=== PATIENT | female | born 1935 | race Caucasian/White ===

== ENCOUNTER 2017-01-01 12:04 | Emergency (ER) | payer MEDICARE, OTHER, MEDICAID ==
[2017-01-01] MEDS ORDERED: Sodium Chloride 0.9% 10 ML Syringe FLUSH PRN (12:48)
--- NOTE | 2017-01-01 12:55 | EDM.PDOC ---
ED HPI GENERAL MEDICAL PROBLEM - General Chief Complaint: Genitourinary Problem Stated Complaint: NOT URINATING Time Seen by Provider: 01/01/17 12:26 Source of Information: Reports: Patient, Family History Limitations: Reports: Altered Mental Status (Dementia) - History of Present Illness INITIAL COMMENTS - FREE TEXT/NARRATIVE: Patient is a 81-year-old female with history of dementia that resides at the [facility] presents the ED with daughter with concerns of increased confusion. Daughter states patient over the past week has been experiencing intermittent low-grade fever. She is a little less steady with being on her feet but continues to ambulate with a walker, she is refusing to take medications, temper has increased, has been refusing to eat eat and drink, and she's had decrease in urine output. She's also complained of intermittent pain to her lower back that is new. Daughter states they have been modifying her antipsychotic medications this past week. Unclear which medication it is at this time. Patient has not had any recent falls. Past history includes: Glaucoma, hypercholesteremia, hypertension, chronic constipation, GERD, renal disease, gout, Alzheimer's disease, encephalopathy, schizophrenia, delirium, type 2 diabetes, hypothyroid Current medications include Tylenol, levothyroxine, metoprolol, olanzapine, metformin. See list for additional lower back Pain Score (Numeric/FACES): 5 - Related Data Allergies Allergy/AdvReac Type Severity Reaction Status Date / Time atorvastatin Allergy Other Verified 01/01/17 12:25 codeine Allergy Other Verified 01/01/17 12:25 losartan Allergy Other Verified 01/01/17 12:25 morphine Allergy Other Verified 01/01/17 12:25 Penicillins Allergy Other Verified 01/01/17 12:25 Home Meds: Home Meds Acetaminophen [Tylenol] 325 mg PO Q4H PRN 01/01/17 [History] Betamethasone/Clotrimazole [Lotrisone] 1 applic TOP BID PRN 01/01/17 [History] Bisacodyl [Dulcolax] 10 mg RECTAL DAILY PRN 01/01/17 [History] Brimonidine Tartrate [Alphagan P] 1 drop EYELF BID 01/01/17 [History] Calcium Carbonate [Tums] 200 mg PO ASDIRECTED PRN 01/01/17 [History] Colesevelam HCl [Welchol] 625 mg PO BID 01/01/17 [History] Compression Socks, Medium [Futuro Restoring] 1 applic TOP ASDIRECTED 01/01/17 [ History] Dorzolamide [Trusopt 2% Ophth Soln] 10 ml EYELF BID 01/01/17 [History] Edetate Disodium/PEG [Eyescrub Cleansing Pads] 1 each TP DAILY 01/01/17 [History ] Glycerin/Propylene Glycol [Artificial Tears Drops] 1 drop OP QID 01/01/17 [ History] Latanoprost [Xalatan] 1 drop EYELF BEDTIME 01/01/17 [History] Levothyroxine 137 mcg PO ACBREAKFAST 01/01/17 [History] Metoprolol Tartrate 75 mg PO BID 01/01/17 [History] OLANZapine [Olanzapine] 7.5 mg PO DAILY 01/01/17 [History] Polyethylene Glycol 3350 [MiraLAX] 17 gm PO DAILY 01/01/17 [History] Sennosides [Senna] 8.6 mg PO DAILY PRN 01/01/17 [History] Timolol Maleate [Timoptic 0.25% Ophth Soln] 5 ml EYELF BID 01/01/17 [History] guaiFENesin/Dextromethorphan [Tussin DM Cough & Chest] 5 ml PO Q4H PRN 01/01/17 [History] metFORMIN [Glucophage XR] 500 mg PO BIDMEALS 01/01/17 [History] Past Medical History HEENT History: Reports: Glaucoma, Other (See Below) Other HEENT History: dry eyes syndrome Cardiovascular History: Reports: High Cholesterol, Hypertension Gastrointestinal History: Reports: Chronic Constipation, GERD Genitourinary History: Reports: Renal Disease, Other (See Below) Other Genitourinary History: hx hyperglycemic--hyperosmolar coma ([facility]) Musculoskeletal History: Reports: Gout Other Musculoskeletal History: uses walker Neurological History: Reports: Alzheimers Disease, Other (See Below) Other Neuro History: encephalopathy, AMS Psychiatric History: Reports: Alzheimers Disease, Schizophrenia, Other (See Below) Other Psychiatric History: delirium Endocrine/Metabolic History: Reports: Diabetes, Type II, Hypothyroidism, Obesity /BMI 30+ - Past Surgical History Other Endocrine Surgeries/Procedures: thyroid surgery Social & Family History - Family History Family Medical History: Noncontributory - Tobacco Use Smoking Status *Q: Never Smoker Second Hand Smoke Exposure: No - Caffeine Use Caffeine Use: Reports: Coffee - Recreational Drug Use Recreational Drug Use: No ED ROS GENERAL - Review of Systems Review Of Systems: See Below Constitutional: Reports: Fever (low grade 99.5 for one wk. ), Malaise, Weakness , Fatigue, Decreased Appetite. Denies: Chills HEENT: Reports: No Symptoms Respiratory: Reports: No Symptoms Cardiovascular: Reports: No Symptoms GI/Abdominal: Reports: No Symptoms : Reports: No Symptoms Musculoskeletal: Reports: Back Pain (Low back) Skin: Reports: No Symptoms Neurological: Reports: Confusion (History of dementia, recently increased), Difficulty Walking (Able to ambulate with walker with no assistance. Patient appears to be more unsteady on her feet.). Denies: Headache Psychiatric: Reports: Confusion - Physical Exam Exam: See Below Exam Limited By: Altered Mental Status (Dementia) General Appearance: Alert, WD/WN, No Apparent Distress, Other (Falls asleep easily) Eye Exam: Bilateral Eye: EOMI, Nystagmus (None found), PERRL Ears: Hearing Grossly Normal Nose: Normal Inspection Throat/Mouth: Normal Voice, No Airway Compromise, Other (Dry oromucosa, no uvula deviation, no tongue deviation) Head Exam: Atraumatic, Normocephalic Neck: Normal Inspection, Supple, Non-Tender. No: Lymphadenopathy (L), Lymphadenopathy (R) Respiratory/Chest: No Respiratory Distress, Lungs Clear, Normal Breath Sounds, No Accessory Muscle Use, Chest Non-Tender Cardiovascular: Normal Peripheral Pulses, No JVD, Bradycardia, Systolic Murmur ( Faint) GI/Abdominal: Normal Bowel Sounds, Soft, Non-Tender, No Organomegaly, No Distention Neuro Exam (Abbreviated): Alert, Oriented (To person and family), CN II-XII Intact, No Motor/Sensory Deficits, Confused, Other (No weakness discrepancy 2 upper and lower extremities. No facial droop, slurred speech, pronator drift. Cerebellar function intact including: Finger-nose and rapid alternating movements. While laying in bed patient list to the right. This is normal for the patient. ) Back Exam: Normal Inspection, Full Range of Motion. No: CVA Tenderness (L), CVA Tenderness (R), Paraspinal Tenderness, Vertebral Tenderness Extremities: Normal Inspection, Non-Tender, No Pedal Edema, Normal Capillary Refill Psychiatric: Normal Affect, Normal Mood Skin Exam: Warm, Dry, Intact, Normal Color, No Rash Course - Vital Signs Last Recorded V/S: Last Vital Signs Temp 97.1 F 01/01/17 12:10 Pulse 58 L 01/01/17 16:16 Resp 20 01/01/17 16:16 BP 170/86 H 01/01/17 16:16 Pulse Ox 99 01/01/17 16:16 - Orders/Labs/Meds Orders: Active Orders 24 hr Category Date Time Status EKG Documentation Completion [RC] STAT Care 01/01/17 12:47 Active Insert Davis Catheter [Insert Urinary Catheter] [OM.PC] Care 01/01/17 14:35 Ordered Q24H Peripheral IV Care [RC] . DIRECTED Care 01/01/17 12:48 Active Urinary Catheter Assessment [RC] ASDIRECTED Care 01/01/17 14:35 Active Chest 2V [CR] Stat Exams 01/01/17 12:47 Taken CULTURE BLOOD [BC] Stat Lab 01/01/17 13:25 Received CULTURE BLOOD [BC] Stat Lab 01/01/17 13:35 Received Blood Culture x2 Reflex Set [OM.PC] Stat Oth 01/01/17 12:55 Ordered Peripheral IV Insertion Adult [OM.PC] Stat Oth 01/01/17 12:48 Ordered Labs: Laboratory Tests 01/01/17 01/01/17 01/01/17 Range/Units 13:00 13:00 13:00 WBC 8.91 (3.98-10.04) K/mm3 RBC 4.13 (3.98-5.22) M/mm3 Hgb 12.7 (11.2-15.7) gm/L Hct 37.9 (34.1-44.9) % MCV 91.8 (79.4-94.8) fl MCH 30.8 (25.6-32.2) pg MCHC 33.5 (32.2-35.5) g/dl RDW Std Deviation 45.4 (36.4-46.3) fL Plt Count 190 (182-369) K/mm3 MPV 10.9 (9.4-12.3) fl Neut % (Auto) 50.1 (34.0-71.1) % Lymph % (Auto) 40.6 (19.3-51.7) % [place] % (Auto) 8.3 (4.7-12.5) % Eos % (Auto) 0.7 (0.7-5.8) Baso % (Auto) 0.1 (0.1-1.2) % Neut # (Auto) 4.46 (1.56-6.13) K/mm3 Lymph # (Auto) 3.62 (1.18-3.74) K/mm3 [place] # (Auto) 0.74 H (0.24-0.36) K/mm3 Eos # (Auto) 0.06 (0.04-0.36) K/mm3 Baso # (Auto) 0.01 (0.01-0.08) K/mm3 Sodium 142 (136-145) mEq/L Potassium 4.3 (3.5-5.1) mEq/L Chloride 107 (98-107) mEq/L Carbon Dioxide 27 (21-32) mEq/L Anion Gap 12.3 (5-15) BUN 29 H (7-18) mg/dL Creatinine 1.6 H (0.55-1.02) mg/dL Est Cr Clr Drug Dosing 24.62 mL/min Estimated GFR (MDRD) 31 (>60) mL/min BUN/Creatinine Ratio 18.1 H (14-18) Glucose 91 (83-115) mg/dL Calcium 9.9 (8.5-10.1) mg/dL Total Bilirubin 0.6 (0.2-1.0) mg/dL AST 23 (15-37) U/L ALT 20 (14-59) U/L Alkaline Phosphatase 35 L (46-116) U/L Troponin I < 0.017 (0.00-0.056) ng/mL C-Reactive Protein < 0.2 (<1.0) mg/dL Total Protein 7.0 (6.4-8.2) g/dl Albumin 3.6 (3.4-5.0) g/dl Globulin 3.4 gm/dL Albumin/Globulin Ratio 1.1 (1-2) TSH 3rd Generation 5.201 H (0.358-3.74) uIU/mL Urine Color (Yellow) Urine Appearance (Clear) Urine pH (5.0-8.0) Ur Specific [place] (1.005-1.030) Urine Protein (Negative) Urine Glucose (UA) (Negative) Urine Ketones (Negative) Urine Occult Blood (Negative) Urine Nitrite (Negative) Urine Bilirubin (Negative) Urine Urobilinogen (0.2-1.0) Ur Leukocyte Esterase (Negative) Urine RBC (0-5) /hpf Urine WBC (0-5) /hpf Ur Epithelial Cells (0-5) /hpf Urine Bacteria (FEW) /hpf Urine Mucus (FEW) /hpf 01/01/17 Range/Units 14:38 WBC (3.98-10.04) K/mm3 RBC (3.98-5.22) M/mm3 Hgb (11.2-15.7) gm/L Hct (34.1-44.9) % MCV (79.4-94.8) fl MCH (25.6-32.2) pg MCHC (32.2-35.5) g/dl RDW Std Deviation (36.4-46.3) fL Plt Count (182-369) K/mm3 MPV (9.4-12.3) fl Neut % (Auto) (34.0-71.1) % Lymph % (Auto) (19.3-51.7) % [place] % (Auto) (4.7-12.5) % Eos % (Auto) (0.7-5.8) Baso % (Auto) (0.1-1.2) % Neut # (Auto) (1.56-6.13) K/mm3 Lymph # (Auto) (1.18-3.74) K/mm3 [place] # (Auto) (0.24-0.36) K/mm3 Eos # (Auto) (0.04-0.36) K/mm3 Baso # (Auto) (0.01-0.08) K/mm3 Sodium (136-145) mEq/L Potassium (3.5-5.1) mEq/L Chloride (98-107) mEq/L Carbon Dioxide (21-32) mEq/L Anion Gap (5-15) BUN (7-18) mg/dL Creatinine (0.55-1.02) mg/dL Est Cr Clr Drug Dosing mL/min Estimated GFR (MDRD) (>60) mL/min BUN/Creatinine Ratio (14-18) Glucose (83-115) mg/dL Calcium (8.5-10.1) mg/dL Total Bilirubin (0.2-1.0) mg/dL AST (15-37) U/L ALT (14-59) U/L Alkaline Phosphatase (46-116) U/L Troponin I (0.00-0.056) ng/mL C-Reactive Protein (<1.0) mg/dL Total Protein (6.4-8.2) g/dl Albumin (3.4-5.0) g/dl Globulin gm/dL Albumin/Globulin Ratio (1-2) TSH 3rd Generation (0.358-3.74) uIU/mL Urine Color Yellow (Yellow) Urine Appearance Slt cloudy H (Clear) Urine pH 5.5 (5.0-8.0) Ur Specific [place] > or = 1.030 (1.005-1.030) Urine Protein Trace H (Negative) Urine Glucose (UA) Negative (Negative) Urine Ketones Negative (Negative) Urine Occult Blood Negative (Negative) Urine Nitrite Negative (Negative) Urine Bilirubin Negative (Negative) Urine Urobilinogen 0.2 (0.2-1.0) Ur Leukocyte Esterase Negative (Negative) Urine RBC 0-5 (0-5) /hpf Urine WBC 0-5 (0-5) /hpf Ur Epithelial Cells 0-5 (0-5) /hpf Urine Bacteria Few (FEW) /hpf Urine Mucus Not seen (FEW) /hpf Meds: Medications Discontinued Medications Generic Name Dose Route Start Last Admin Trade Name Freq PRN Reason Stop Dose Admin Sodium Chloride 1,000 mls @ 75 mls/hr 01/01/17 13:00 01/01/17 12:59 Normal Saline IV 75 mls/hr ASDIRECTED VICKIE Administration Sodium Chloride 500 mls @ 250 mls/hr 01/01/17 13:56 Normal Saline IV 01/01/17 15:55 .BOLUS ONE Sodium Chloride 10 ml 01/01/17 12:48 01/01/17 12:59 Saline Flush FLUSH 10 ml ASDIRECTED PRN Administration Keep Vein Open - Re-Assessments/Exams Free Text/Narrative Re-Assessment/Exam: Will order a peripheral IV with normal saline 75 mils per hour. Initial labs and studies include CBC, chem 14, CRP, TSH, blood cultures x2, chest x-ray two- view, UA, bladder scan, and EKG. 01/01/17 13:58 Portable chest x-ray poor quality with marked deviation to the right increasing the perihilar region on the right side. Does not reveal any acute abnormalities at this this time. Visualized portions of the lungs are clear. Final interpretation pending. Reviewed with Dr. Avery. 01/01/17 14:01 Labs reviewed: Sodium 142, potassium 4.3, creatinine is elevated at 1.6, CRP less than 0.2, TSH is mildly elevated 5.201, CBC essentially normal. UA is pending. Troponin pending. 01/01/17 15:33 UA was negative for infection processes. Troponin was negative. Patient was bradycardic upon arrival. She is on metoprolol tartrate 25 mg twice a day. In addition her TSH levels were mildly elevated at 5.201. Currently she is on levothyroxine 137 g every day. Will go ahead and increase her levothyroxine 150 g every day and decrease metoprolol dosing from 75-50 mg by mouth twice a day. Blood pressures have been normotensive with admission to the ED. Will discharge patient with instructions as documented. Departure - Departure Time of Disposition: 15:50 Disposition: Home, Self-Care 01 Condition: Good Clinical Impression: Bradycardia, Confusion Hypothyroidism Qualifiers: Hypothyroidism type: unspecified Qualified Code(s): E03.9 - Hypothyroidism, unspecified Alzheimer disease Qualifiers: Alzheimer's disease onset: late-onset Dementia behavioral disturbance: with behavioral disturbance Qualified Code(s): G30.1 - Alzheimer's disease with late onset - Discharge Information Instructions: Hypothyroidism, Bradycardia Referrals: Faustino Cornelius MD [Primary Care Provider] - Forms: ED Department Discharge Additional Instructions: Patient was bradycardic upon arrival. She is on metoprolol tartrate 75 mg twice a day. In addition her TSH levels were mildly elevated at 5.201. Currently she is on levothyroxine 137 g every day. Will go ahead and increase her levothyroxine to 150 g every day and decrease metoprolol dosing from 75-50 mg by mouth twice a day. Blood pressures have been normotensive with admission to the ED. Metoprolol although a good antihypertensive medication and also treats patient with tachy rhythms side effects of this medication have been documented to cause fatigue and constipation. In addition levothyroxine dose is subtherapeutic at this time. Hypothyroidis can cause fatigue, constipation, as well increased confusion. Thus levothyroxine dosage was increased. Please see PCP in one week for reevaluation treatment. Return to ED as needed for any new or worsening symptoms. - My Orders Last 24 Hours: My Active Orders 01/01/17 12:47 EKG Documentation Completion [RC] STAT Chest 2V [CR] Stat 01/01/17 12:48 Peripheral IV Care [RC] . DIRECTED Peripheral IV Insertion Adult [OM.PC] Stat 01/01/17 12:55 Blood Culture x2 Reflex Set [OM.PC] Stat 01/01/17 13:25 CULTURE BLOOD [BC] Stat 01/01/17 13:35 CULTURE BLOOD [BC] Stat 01/01/17 14:35 Insert Davis Catheter [Insert Urinary Catheter] [OM.PC] Q24H Urinary Catheter Assessment [RC] ASDIRECTED - Assessment/Plan Last 24 Hours: My Active Orders 01/01/17 12:47 EKG Documentation Completion [RC] STAT Chest 2V [CR] Stat 01/01/17 12:48 Peripheral IV Care [RC] . DIRECTED Peripheral IV Insertion Adult [OM.PC] Stat 01/01/17 12:55 Blood Culture x2 Reflex Set [OM.PC] Stat 01/01/17 13:25 CULTURE BLOOD [BC] Stat 01/01/17 13:35 CULTURE BLOOD [BC] Stat 01/01/17 14:35 Insert Davis Catheter [Insert Urinary Catheter] [OM.PC] Q24H Urinary Catheter Assessment [RC] ASDIRECTED
[2017-01-01] MEDS ORDERED: Sodium Chloride 0.9% 1,000 ML IV SCH (13:00)
[2017-01-01] MEDS ORDERED: Sodium Chloride 0.9% 500 ML IV ONE (13:56)
[2017-01-01 16:45] VITALS: BP 170/86
--- NOTE | 2017-01-02 08:14 | CR ---
Chest: Two views of the chest were obtained. Comparison: No previous study. Right and left perihilar markings are slightly increased. Difficult to exclude combination of atelectasis and bronchitis. Lungs otherwise are clear. Heart size is normal. Tortuous thoracic aorta is seen. Surgical clips are seen along the right upper mediastinum. Impression: 1. Possible atelectasis and perihilar bronchitis. 2. Surgical clips along the right side of the upper mediastinum. 3. Other incidental findings. Diagnostic code #3
== END 2017-01-01 16:16 | disposition home or self-care (01) ==
LOC: JD.ED 12:04
DX: R00.1 Bradycardia, unspecified (principal); G30.1 Alzheimer's disease with late onset; F02.80 Dementia in other diseases classified elsewhere, unspecified severity, without behavioral disturbance, psychotic disturbance, mood disturbance, and anxiety; E78.00 Pure hypercholesterolemia, unspecified; E66.9 Obesity, unspecified; I10 Essential (primary) hypertension; K21.9 Gastro-esophageal reflux disease without esophagitis; E11.9 Type 2 diabetes mellitus without complications; E03.9 Hypothyroidism, unspecified; Z88.5 Allergy status to narcotic agent; Z88.0 Allergy status to penicillin; Z79.899 Other long term (current) drug therapy; Z79.84 Long term (current) use of oral hypoglycemic drugs; Z68.35 Body mass index [BMI] 35.0-35.9, adult
CPT/HCPCS: 36415; 51798; 71020; 80053; 81001; 84443; 84484; 85025; 86140; 87040; 93005; 96360; 96361; 99284; J7040; J7050; P9612

== ENCOUNTER 2017-01-08 17:02 | Emergency (ER) | payer MEDICARE, OTHER, MEDICAID ==
[2017-01-08 17:10] VITALS: BP 144/79
[2017-01-08] MEDS ORDERED: Lidocaine 1% 10 ML MDV INJECT ONE (17:24)
--- NOTE | 2017-01-08 17:29 | EDM.PDOC ---
ED HPI GENERAL MEDICAL PROBLEM - General Chief Complaint: Laceration Stated Complaint: [facility] Time Seen by Provider: 01/08/17 17:24 Source of Information: Reports: Patient, EMS History Limitations: Reports: No Limitations - History of Present Illness INITIAL COMMENTS - FREE TEXT/NARRATIVE: 81-year-old female presents from the [facility] by ambulance. She had unwitnessed fall and was appreciated to have a laceration to her occipital scalp. Patient has no recollection of why when or where this occurred. She usually walks with aid of a walker. She denies any other injuries. Unclear when her last tetanus toxoid was. Onset: Today Onset Date: 01/08/17 Onset Time: 16:00 Duration: Minutes: Location: Reports: Head (Has a 2 cm laceration occipital scalp.) Quality: Reports: Other (Patient is asymptomatic. Patient has severe underlying organic brain disease and really had no recollection of how or where she fell or how she may have gotten hurt. She is not distressed by it at all.) Severity: Moderate Improves with: Reports: None Worsens with: Reports: None Context: Reports: Other (Unwitnessed fall in long-term. 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: Other (see below) (None.) - Related Data Allergies Allergy/AdvReac Type Severity Reaction Status Date / Time atorvastatin Allergy Other Verified 01/08/17 17:10 codeine Allergy Other Verified 01/08/17 17:10 losartan Allergy Other Verified 01/08/17 17:10 morphine Allergy Other Verified 01/08/17 17:10 Penicillins Allergy Other Verified 01/08/17 17:10 Home Meds: Home Meds Acetaminophen [Tylenol] 325 mg PO Q4H PRN 01/01/17 [History] Betamethasone/Clotrimazole [Lotrisone] 1 applic TOP BID PRN 01/01/17 [History] Bisacodyl [Dulcolax] 10 mg RECTAL DAILY PRN 01/01/17 [History] Brimonidine Tartrate [Alphagan P] 1 drop EYELF BID 01/01/17 [History] Calcium Carbonate [Tums] 200 mg PO ASDIRECTED PRN 01/01/17 [History] Colesevelam HCl [Welchol] 3 tab PO BID 01/01/17 [History] Compression Socks, Medium [Futuro Restoring] 1 applic TOP ASDIRECTED 01/01/17 [ History] Dorzolamide [Trusopt 2% Ophth Soln] 10 ml EYELF BID 01/01/17 [History] Edetate Disodium/PEG [Eyescrub Cleansing Pads] 1 each TP DAILY 01/01/17 [History ] Glycerin/Propylene Glycol [Artificial Tears Drops] 1 drop OP QID 01/01/17 [ History] Levothyroxine 137 mcg PO ACBREAKFAST 01/01/17 [History] OLANZapine [Olanzapine] 7.5 mg PO DAILY 01/01/17 [History] Polyethylene Glycol 3350 [MiraLAX] 17 gm PO DAILY 01/01/17 [History] Sennosides [Senna] 8.6 mg PO DAILY PRN 01/01/17 [History] Timolol Maleate [Timoptic 0.25% Ophth Soln] 5 ml EYELF BID 01/01/17 [History] guaiFENesin/Dextromethorphan [Tussin DM Cough & Chest] 5 ml PO Q4H PRN 01/01/17 [History] Past Medical History HEENT History: Reports: Glaucoma, Other (See Below) Other HEENT History: dry eyes syndrome Cardiovascular History: Reports: High Cholesterol, Hypertension Gastrointestinal History: Reports: Chronic Constipation, GERD Genitourinary History: Reports: Renal Disease, Other (See Below) Other Genitourinary History: hx hyperglycemic--hyperosmolar coma ([facility]) Musculoskeletal History: Reports: Gout Other Musculoskeletal History: uses walker Neurological History: Reports: Alzheimers Disease, Other (See Below) Other Neuro History: encephalopathy, AMS Psychiatric History: Reports: Alzheimers Disease, Schizophrenia, Other (See Below) Other Psychiatric History: delirium Endocrine/Metabolic History: Reports: Diabetes, Type II, Hypothyroidism, Obesity /BMI 30+ - Past Surgical History Other Endocrine Surgeries/Procedures: thyroid surgery Social & Family History - Family History Family Medical History: Noncontributory - Tobacco Use Smoking Status *Q: Unknown Ever Smoked Second Hand Smoke Exposure: No - Caffeine Use Caffeine Use: Reports: Coffee - Recreational Drug Use Recreational Drug Use: No - Living Situation & Occupation Living situation: Reports: Extended Care Facility (Currently living in the [facility]) Occupation: Retired ED ROS GENERAL - Review of Systems Review Of Systems: Unable To Obtain (Unable to obtain from the patient due to her underlying severe organic brain disease.) ED EXAM, SKIN/RASH Exam: See Below Exam Limited By: Altered Mental Status (Severe dementia.) General Appearance: Alert, No Apparent Distress Eye Exam: Bilateral Eye: Normal Inspection, PERRL Ears: Normal External Exam, Normal TMs Nose: Normal Inspection Throat/Mouth: Normal Inspection, Normal Oropharynx, Other. No: Normal Teeth Head: Other (No injuries to her tongue is a 2 cm stellate laceration to the superior aspect of the occipital scalp more towards the left than the right.) Neck: Normal Inspection, Supple, Non-Tender, Full Range of Motion. No: Carotid Bruit, Lymphadenopathy (L), Lymphadenopathy (R), Thyromegaly Respiratory/Chest: No Respiratory Distress, Lungs Clear, Normal Breath Sounds, Chest Non-Tender Cardiovascular: Regular Rate, Rhythm, No Edema, No Gallop, No Murmur, No Rub. No: Normal Peripheral Pulses Peripheral Pulses: 2+: Posterior Tibial (L), Posterior Tibial (R), Dorsalis Pedis (L), Dorsalis Pedis (R) GI/Abdominal: Normal Bowel Sounds, Soft, Non-Tender, No Organomegaly Back Exam: Normal Inspection, Full Range of Motion, Other (No bruises contusions or abrasions identified. No vertebral tenderness identified.). No: CVA Tenderness (L), CVA Tenderness (R) Extremities: Normal Inspection, Normal Range of Motion, Non-Tender, No Pedal Edema, Other (No evidence of injuries to the wrists elbows or shoulders. No injuries to the hips or knees identified.) Neurological: CN II-XII Intact, No Motor/Sensory Deficits. No: Oriented, Normal Cognition, Normal Gait Psychiatric: Normal Affect, Normal Mood Skin: Warm, Dry, Intact, Normal Color, No Rash ED SKIN PROCEDURES - Laceration/Wound Repair Upper Posterior Occipital Head Lac/Wound length In cm: 2.0 Appearance: Subcutaneous, Stellate Distal NVT: Neuro & Vascular Intact Anesthetic Type: Local Local Anesthesia - Lidocaine (Xylocaine): 1% Plain Local Anesthetic Volume: 2cc Skin Prep: Saline Closed with: Sutures Suture Size: 4-0 # of Sutures: 4 Suture Type: Prolene, Interrupted, Simple EKG INTERPRETATION EKG Date: 01/08/17 Time: 18:45 Rhythm: NSR Rate (Beats/Min): 85 [place]: Normal P-Wave: Present QRS: Other (Initial poor R-wave progression . Occasional multifocal PVCs appreciated) ST-T: Normal (no signs of ischemia) QT: Prolonged Comparison: No Change (Minimally prolonged) Course - Vital Signs Last Recorded V/S: Last Vital Signs Temp 36.3 C 01/08/17 17:03 Pulse 86 01/08/17 17:03 Resp 16 01/08/17 17:03 BP 144/79 H 01/08/17 17:03 Pulse Ox 95 01/08/17 17:03 - Orders/Labs/Meds Orders: Active Orders 24 hr Category Date Time Status EKG Documentation Completion [RC] STAT Care 01/08/17 17:31 Active Labs: Laboratory Tests 01/08/17 01/08/17 Range/Units 18:07 18:07 WBC 9.97 (3.98-10.04) K/mm3 RBC 4.08 (3.98-5.22) M/mm3 Hgb 12.7 (11.2-15.7) gm/L Hct 37.5 (34.1-44.9) % MCV 91.9 (79.4-94.8) fl MCH 31.1 (25.6-32.2) pg MCHC 33.9 (32.2-35.5) g/dl RDW Std Deviation 46.5 H (36.4-46.3) fL Plt Count 204 (182-369) K/mm3 MPV 10.8 (9.4-12.3) fl Neutrophils % (Manual) 75 H (40-60) % Band Neutrophils % 2 (0-10) % Lymphocytes % (Manual) 20 (20-40) % Atypical Lymphs % 0 % Monocytes % (Manual) 2 (2-10) % Eosinophils % (Manual) 1 (0.7-5.8) % Basophils % (Manual) 0 L (0.1-1.2) Platelet Estimate Adequate Anisocytosis 1+ slight Ovalocytes 1+ slight RBC Morph Comment Not Reportable Sodium 141 (136-145) mEq/L Potassium 4.1 (3.5-5.1) mEq/L Chloride 107 (98-107) mEq/L Carbon Dioxide 26 (21-32) mEq/L Anion Gap 12.1 (5-15) BUN 23 H (7-18) mg/dL Creatinine 1.4 H (0.55-1.02) mg/dL Est Cr Clr Drug Dosing 29.32 mL/min Estimated GFR (MDRD) 36 (>60) mL/min BUN/Creatinine Ratio 16.4 (14-18) Glucose 96 (83-115) mg/dL Calcium 9.6 (8.5-10.1) mg/dL Total Bilirubin 0.7 (0.2-1.0) mg/dL AST 19 (15-37) U/L ALT 21 (14-59) U/L Alkaline Phosphatase 37 L (46-116) U/L CK-MB (CK-2) 0.8 (0-3.6) ng/ml Troponin I < 0.017 (0.00-0.056) ng/mL Total Protein 6.8 (6.4-8.2) g/dl Albumin 3.6 (3.4-5.0) g/dl Globulin 3.2 gm/dL Albumin/Globulin Ratio 1.1 (1-2) Meds: Medications Discontinued Medications Generic Name Dose Route Start Last Admin Trade Name Freq PRN Reason Stop Dose Admin Lidocaine HCl 10 ml 01/08/17 17:24 01/08/17 17:44 Xylocaine 1% INJECT 01/08/17 17:25 10 ml ONETIME ONE Administration - Radiology Interpretation Free Text/Narrative:: 81-year-old female brought to the ED per [place] [facility] after she experienced an unwitnessed fall at the [facility]. She was identified to have hit her head and suffered a laceration to the occipital scalp. She usually walks on her own volition with aid of a walker. Again the details of where and how she fell or unclear. She did not appear to be in any distress upon arrival. Patient is not does have severe organic brain disease. - Re-Assessments/Exams Free Text/Narrative Re-Assessment/Exam: 01/08/17 19:30: CT of the head reveals diminished density within the periventricular and subcortical white matter compatible with small vessel ischemic changes. No other parenchymal abnormalities were identified. There is no evidence of intracranial hemorrhage or fracture. There is slight atherosclerotic changes noted within the vertebral vessels and within the carotid siphon. Scalp hematoma appreciated within the posterior left scalp. 01/08/17 20:30: Laceration was repaired occipital scalp using 4-0 Prolene 4 sutures. Wound will be cleansed daily with soap and water at the care center. Sutures will need to be removed in 10 days' time. She was discharged home in the care of her family. Departure - Departure Time of Disposition: 20:36 Disposition: DC/[facility]fer to [facility] Condition: Fair Clinical Impression: Occipital scalp laceration Qualifiers: Encounter type: initial encounter Qualified Code(s): S01.01XA - Laceration without foreign body of scalp, initial encounter Fall as cause of accidental injury at home as place of occurrence Qualifiers: Encounter type: initial encounter Qualified Code(s): W19.XXXA - Unspecified fall, initial encounter - Discharge Information Instructions: Laceration Care, Adult Referrals: Faustino Cornelius MD [Primary Care Provider] - Forms: ED Department Discharge Additional Instructions: Evaluation the emergency room today after a fall at home that was unwitnessed. Obvious injury to the occipital scalp with a 2 cm laceration to the superior occipital scalp identified. CT of the brain was carried out and shows marked degenerative changes with small vessel ischemic changes but no signs of stroke or intracranial bleeding or mid line shift or mass effect. Lab work was done and also was all within normal limits. There was no metabolic abnormalities that would cause muscle weakness and or fall. Laceration was repaired with 4 4- 0 Prolene sutures. Treatment at home is daily cleanse the wound with soap and water showering is okay. Then apply topical anabolic such as Polysporin or bacitracin once daily. Sutures need to be removed in 10 days' time. - My Orders Last 24 Hours: My Active Orders 01/08/17 17:31 EKG Documentation Completion [RC] STAT - Assessment/Plan Last 24 Hours: My Active Orders 01/08/17 17:31 EKG Documentation Completion [RC] STAT
--- NOTE | 2017-01-08 18:19 | CT ---
Head CT Technique: Multiple axial sections through the brain were obtained. Intravenous contrast was not utilized. Comparison: No previous study. Findings: Soft tissue hematoma is seen within the posterior left side of the scalp. Ventricles along with basal cisterns and sulci over convexities are mildly prominent. Diminished density is noted within the periventricular and subcortical white matter compatible with small vessel ischemic demyelination change. No other abnormal parenchymal densities are seen. No evidence of intracranial hemorrhage. No midline shift or mass effect is seen. Slight atherosclerotic change is noted within the vertebral vessels and within the carotid siphon. Bone window settings were reviewed which shows no acute calvarial abnormality. Visualized sinuses are clear. Impression: 1. Scalp hematoma within the posterior left scalp. 2. Senescent change as described above. 3. No acute intracranial abnormality is identified. Diagnostic code #2
== END 2017-01-08 20:45 ==
LOC: JD.ED 17:02
DX: S01.01XA Laceration without foreign body of scalp, initial encounter (principal); E78.00 Pure hypercholesterolemia, unspecified; I10 Essential (primary) hypertension; K21.9 Gastro-esophageal reflux disease without esophagitis; E11.9 Type 2 diabetes mellitus without complications; E03.9 Hypothyroidism, unspecified; E66.9 Obesity, unspecified; Z88.5 Allergy status to narcotic agent; Z88.0 Allergy status to penicillin; Z79.899 Other long term (current) drug therapy; W19.XXXA Unspecified fall, initial encounter; Z68.30 Body mass index [BMI] 30.0-30.9, adult
CPT/HCPCS: 12001; 36415; 70450; 70450-26; 80053; 82553; 84484; 85025; 93005; 99284-25

== ENCOUNTER 2017-01-31 07:18 | Emergency (ER) | payer MEDICARE, OTHER, MEDICAID ==
--- NOTE | 2017-01-31 07:32 | EDM.PDOC ---
ED HPI GENERAL MEDICAL PROBLEM - General Chief Complaint: Trauma Stated Complaint: [facility] Time Seen by Provider: 01/31/17 07:20 Source of Information: Reports: Patient, EMS, Detention Records History Limitations: Reports: Altered Mental Status ( hasdementia.) - History of Present Illness INITIAL COMMENTS - FREE TEXT/NARRATIVE: 81-year-old female presents to the ED for evaluation of a fall that was unwitnessed. She was found on the floor of her room this morning. It's unclear by history whether she walks on her own volition are usually uses a walker or wheelchair. She has dementia and was not able to answer all questions. She denies much in the way of pain other than in her nose. Nose is obviously very swollen and suspect to be fractured. No active bleeding is occurring at this time. She has a slight abrasion to her right forehead above the eyebrow. She's had previous cervical spine surgery but seems to have full range of motion of her neck. 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 (see below) (None.) - Related Data Allergies Allergy/AdvReac Type Severity Reaction Status Date / Time atorvastatin Allergy Other Verified 01/31/17 07:20 codeine Allergy Other Verified 01/31/17 07:20 losartan Allergy Other Verified 01/31/17 07:20 morphine Allergy Other Verified 01/31/17 07:20 Penicillins Allergy Other Verified 01/31/17 07:20 Home Meds: Home Meds Acetaminophen [Tylenol] 325 mg PO Q4H PRN 01/01/17 [History] Calcium Carbonate [Tums] 200 mg PO ASDIRECTED PRN 01/01/17 [History] Levothyroxine 150 mcg PO ACBREAKFAST 01/01/17 [History] Sennosides [Senna] 8.6 mg PO DAILY PRN 01/01/17 [History] Timolol Maleate [Timoptic 0.25% Ophth Soln] 1 drop EYELF BID 01/01/17 [History] Bisacodyl [Dulcolax] 10 mg RECTAL ASDIRECTED PRN 01/31/17 [History] Brimonidine Tartrate [Alphagan P 0.1% Ophth Soln] 1 drop EYEBOTH BID 01/31/17 [ History] Lemmon/Min Oil/Denae/Wool Alcoh [Eucerin Creme] 1 applic EARBOTH BID PRN [History] Colesevelam [Welchol] 3 tab PO BID 01/31/17 [History] Dextran 70/Hypromellose [Artificial Tears] 1 drop EYEBOTH QID 01/31/17 [History] Dorzolamide [Trusopt 2% Ophth Soln] 1 drop EYELF BID 01/31/17 [History] Latanoprost [Xalatan 0.005% Ophth Soln] 1 drop EYELF BEDTIME 01/31/17 [History] Metoprolol Tartrate [Lopressor] 50 mg PO BID 01/31/17 [History] OLANZapine [Olanzapine] 15 mg PO BEDTIME 01/31/17 [History] guaiFENesin/Dextromethorphan [Safetussin DM] 5 ml PO Q4H PRN 01/31/17 [History] metFORMIN [Glucophage] 500 mg PO BID 01/31/17 [History] Past Medical History HEENT History: Reports: Glaucoma, Other (See Below) Other HEENT History: dry eyes syndrome Cardiovascular History: Reports: High Cholesterol, Hypertension Gastrointestinal History: Reports: Chronic Constipation, GERD Genitourinary History: Reports: Renal Disease, Other (See Below) Other Genitourinary History: hx hyperglycemic--hyperosmolar coma ([facility]) Musculoskeletal History: Reports: Gout Other Musculoskeletal History: uses walker Neurological History: Reports: Alzheimers Disease, Other (See Below) Other Neuro History: encephalopathy, AMS Psychiatric History: Reports: Alzheimers Disease, Schizophrenia, Other (See Below) Other Psychiatric History: delirium Endocrine/Metabolic History: Reports: Diabetes, Type II, Hypothyroidism, Obesity /BMI 30+ - Past Surgical History Other Endocrine Surgeries/Procedures: thyroid surgery Social & Family History - Family History Family Medical History: Noncontributory - Tobacco Use Smoking Status *Q: Unknown Ever Smoked Second Hand Smoke Exposure: No - Caffeine Use Caffeine Use: Reports: Coffee - Recreational Drug Use Recreational Drug Use: No - Living Situation & Occupation Living situation: Reports: Extended Care Facility (Currently living in the [facility]) Occupation: Retired Review of Systems - Review of Systems Review Of Systems: Unable To Obtain (Due to her dementia.) ED EXAM, GENERAL - Physical Exam Exam: See Below Exam Limited By: Altered Mental Status (Organic brain disease with a few verbal comments but not does not answer most questions.) General Appearance: No Apparent Distress (Appears somewhat tired.) Eye Exam: Bilateral Eye: Normal Inspection, PERRL Ears: Normal External Exam, Normal TMs Nose: Other (The nose is markedly swollen worse a little bit on the right side as compared to the left. There is dried blood in both nasal canals. Due to her positioning was difficult to ascertain full inspection of the right naris and it will be repeated after she gets back from CT. Wish to be certain that there is no nasal septal hematoma. Active bleeding is occurring at this time.) Throat/Mouth: Normal Inspection, Normal Lips, Normal Oropharynx, Other Head: Atraumatic, Normocephalic (Wearing dentures and there is no blood in the posterior oropharynx.), Other (Slight a superficial scratch above her right eyebrow forehead area.) Neck: Normal Inspection, Non-Tender, Full Range of Motion, Other (Well-healed midline scar over the lower cervical spine and upper thoracic spine.) Respiratory/Chest: No Respiratory Distress, Lungs Clear, Normal Breath Sounds, No Accessory Muscle Use, Decreased Breath Sounds (Does not take very good deep breath. Decreased breath sounds lower 30% of lung van.), Other Cardiovascular: Normal Peripheral Pulses (No obvious injuries to the posterior or anterior thorax ribs or sternum. Clavicles are intact.), Regular Rate, Rhythm , No Gallop, No Murmur, No Rub Peripheral Pulses: 1+: Posterior Tibial (L), Posterior Tibial (R), Dorsalis Pedis (L), Dorsalis Pedis (R) GI/Abdominal: Normal Bowel Sounds, Soft, Non-Tender, No Organomegaly Back Exam: Normal Inspection, Full Range of Motion. No: CVA Tenderness (L), CVA Tenderness (R) Extremities: Normal Inspection, Normal Range of Motion, Non-Tender, Normal Capillary Refill, Other (There is evidence of osteophytic changes in both knees but full range of motion appreciated no contusions or abrasions to the knees) Neurological: No Motor/Sensory Deficits. No: Oriented, CN II-XII Intact, Normal Cognition Psychiatric: Flat Affect Skin Exam: Warm, Dry, Intact, Normal Color, No Rash Course - Vital Signs Last Recorded V/S: Last Vital Signs Temp 36.5 C 01/31/17 07:18 Pulse 70 01/31/17 07:18 Resp 16 01/31/17 07:18 BP 127/75 01/31/17 07:18 Pulse Ox 98 01/31/17 07:18 - Orders/Labs/Meds Orders: Active Orders 24 hr Category Date Time Status Cervical Spine wo Cont [CT] Stat Exams 01/31/17 07:30 Taken Maxillofacial w/o CM [Max Facial Sinus wo Cont] [CT] Exams 01/31/17 07:27 Taken Stat - Radiology Interpretation Free Text/Narrative:: 81-year-old female presents to the ED after sustaining a fall sometime during the night and [facility]. She has obvious facial injuries particularly to her nose. No other injuries were identified on complete exam. She is in sinus rhythm. She is not appear to be in failure. Plan maxillofacial CT to be done. There are no open wounds that would demand tetanus toxoid at this time. - Re-Assessments/Exams Free Text/Narrative Re-Assessment/Exam: 01/31/17 08:33 CT of the head reveals no intracranial bleeding or mass effect. There is marked dementia changes with small vessel ischemic changes in both basal ganglia. Diminished density noted within portions of the periventricular white matter and subcortical white matter compared compatible with small vessel ischemic demyelination changes. Soft tissue swelling noted of the upper left parietal scalp. This was seen on prior study but is diminished in amount. She does have mild diffuse sinus disease slightly worsened from previous examination. CT cervical spine reveals advanced degenerative changes with no fractures identified. There are osteophytes both posterior and anteriorly with degenerative disc disease. CT of the maxillofacial bones reveals a fracture of the nasal septum and vomer. There is a deviation of the nasal septum to the right side. No other facial fractures are identified. This will be treated conservatively. Departure - Departure Time of Disposition: 08:35 Disposition: Home, Self-Care Condition: Fair Clinical Impression: Fracture of nasal bones, initial encounter for closed fracture Fall as cause of accidental injury at home as place of occurrence Qualifiers: Encounter type: initial encounter Qualified Code(s): W19.XXXA - Unspecified fall, initial encounter - Discharge Information Referrals: Faustino Cornelius MD [Primary Care Provider] - Forms: ED Department Discharge Additional Instructions: Evaluation in the emergency department today in regards to injuries sustained from a fall sometime during the night at [facility]. Injuries are mostly to her face with marked swelling of the nose. CT of the fact maxillofacial bones reveals a fracture of the nasal spine with minimal displacement and a fracture of the vomer with deviation of the nasal septum to the right side. No septal hematomas evident. No active bleeding at the time of examination. There is some mild blood in the maxillary sinuses. CT of the head reveals a soft tissue mass left parietal scalp which appears to be resolving compared to last CT. No intracranial bleeding or fractures were identified. No midline shift or mass effect. CT of the cervical spine reveals diffuse degenerative changes throughout the cervical spine but again no fractures were identified. Cervidil. Ice pack to the nose if she will allow it for 20 minutes out of every 4 hours today and tomorrow. Tylenol 650 mg every 6 hours as needed for pain relief. No surgical management is required at this time. - My Orders Last 24 Hours: My Active Orders 01/31/17 07:27 Maxillofacial w/o CM [Max Facial Sinus wo Cont] [CT] Stat 01/31/17 07:30 Cervical Spine wo Cont [CT] Stat - Assessment/Plan Last 24 Hours: My Active Orders 01/31/17 07:27 Maxillofacial w/o CM [Max Facial Sinus wo Cont] [CT] Stat 01/31/17 07:30 Cervical Spine wo Cont [CT] Stat
--- NOTE | 2017-01-31 08:27 | CT ---
Head CT Technique: Multiple axial sections through the brain were obtained. Intravenous contrast was not utilized. Comparison: Previous head CT exam of 01/08/17. Findings: Ventricles along with basal cisterns and sulci over the convexities are mildly prominent. Mild atherosclerotic change is seen within the vertebral vessels and within the carotid siphon. Minimal diminished density is noted within portions of the periventricular white matter and subcortical white matter compatible with small vessel ischemic demyelination change. No evidence of intracranial hemorrhage. No midline shift or mass effect is seen. Soft tissue swelling noted within the upper left parietal scalp. This is seen on prior study but has diminished in amount. No acute calvarial abnormality is seen. Mild mucosal thickening is noted within the ethmoid sinuses and left maxillary sinus. Impression: 1. Minimal sinus disease slightly increased from prior exam. 2. Senescent change as described above. 3. Diminished soft tissue swelling within the upper left parietal scalp from prior study. 4. Nothing acute is appreciated on noncontrast head CT study. Diagnostic code #2
--- NOTE | 2017-01-31 08:38 | CT ---
CT cervical spine Technique: Multiple axial sections were obtained from above C1 inferiorly to the top of T2. Reconstructed sagittal and coronal images were reviewed. Comparison: No previous cervical spine imaging. Findings: Mastoid sinuses that are seen appear clear. Middle ear cavities are also clear. Posterior skull base is intact. Degenerative change is noted between the dens and anterior arch of C1. Mild disc space narrowing is noted at C4-C5 and C5-C6 with posterior spurring seen at C5-C6. Anterior osteophytes are noted at C3-C4, C4-C5, C5-C6 and C6-C7. Mild scattered degenerative change is seen within the apophyseal joints. Mild right-sided neural foraminal stenosis is noted at C4-C5. Moderate to severe bilateral neural foraminal stenosis is noted at C5-C6. Bony defect is seen within the posterior lamina at C6 presumably due to previous surgery. Surgical clips are seen at the base of the right neck. Bony central canal stenosis is seen. No acute fracture is appreciated. No abnormal subluxation is seen. Slight degenerative spurring is noted within the uncovertebral joints at C4-C5 and C5-C6. Impression: 1. Degenerative change as noted above. 2. Defect within the posterior lamina of C6 on the right side most likely due to previous cervical spine surgery. Please correlate. 3. Nothing acute is identified on CT study of the cervical spine. Diagnostic code #2
[2017-01-31 09:18] VITALS: BP 105/57
--- NOTE | 2017-01-31 10:04 | CT ---
CT facial bones Technique: Multiple axial sections were obtained through the facial bones. Reconstructed sagittal and coronal images were reviewed. Comparison: No previous facial bone study. Findings: Minimal mucosal thickening is identified within the left maxillary and ethmoid sinuses. Minimal mucosal thickening is seen within the frontal sinuses. Small calcification is noted within the left and right orbits which is felt to be incidental. Mild degenerative change is seen within the temporomandibular joints. Questionable fracture within the anterior left side of the nasal bone. No additional fracture is appreciated. Impression: 1. Minimal sinus findings. Slight degenerative change. 2. Questionable minimal nasal bone fracture. Please correlate if patient is symptomatic to this area. 3. No other acute abnormality is appreciated. Diagnostic code #3
== END 2017-01-31 09:15 | disposition home or self-care (01) ==
LOC: SUPCPDRO 07:18 → JD.ED 07:18
DX: S02.2XXA Fracture of nasal bones, initial encounter for closed fracture (principal); I10 Essential (primary) hypertension; E78.00 Pure hypercholesterolemia, unspecified; E11.9 Type 2 diabetes mellitus without complications; E03.9 Hypothyroidism, unspecified; E66.9 Obesity, unspecified; G30.9 Alzheimer's disease, unspecified; F02.80 Dementia in other diseases classified elsewhere, unspecified severity, without behavioral disturbance, psychotic disturbance, mood disturbance, and anxiety; Z79.84 Long term (current) use of oral hypoglycemic drugs; Z79.899 Other long term (current) drug therapy; Z88.0 Allergy status to penicillin; Z88.5 Allergy status to narcotic agent; Z88.8 Allergy status to other drugs, medicaments and biological substances; Z68.33 Body mass index [BMI] 33.0-33.9, adult
CPT/HCPCS: 70450; 70450-26; 70486; 70486-26; 72125; 72125-26; 99284; 99285-25

== ENCOUNTER 2017-02-10 15:45 | Emergency (ER) | payer MEDICARE, OTHER, MEDICAID ==
[2017-02-10] MEDS ORDERED: Lidocaine/EPINEPHrine/Tetracaine Soln 1 ML TOP ONE (15:55)
[2017-02-10] MEDS ORDERED: Diphtheria,Pertussis(Acell),Tetanus Vaccine 0.5 ML SDV IM ONE (15:57)
[2017-02-10 15:59] VITALS: BP 139/72
[2017-02-10] MEDS ORDERED: Lidocaine/EPINEPHrine/Tetracaine Soln 1 ML ONE (16:00)
--- NOTE | 2017-02-10 16:31 | CT ---
Head CT Technique: Multiple axial sections of the brain were obtained. Intravenous contrast was not utilized. Comparison: Previous head CT exam of 01/31/17. Findings: Ventricles along with basal cisterns and sulci over the convexities are mildly prominent. Minimal diminished density is noted within the periventricular white matter and subcortical white matter compatible with small vessel ischemic demyelination change. No other abnormal parenchymal densities are seen. No evidence of intracranial hemorrhage. No midline shift or mass effect is seen. Visualized sinuses are clear. No acute calvarial abnormality is appreciated. Mild persistent soft tissue swelling is seen within the posterior left scalp which is seen on prior exam. Impression: 1. Senescent change and other incidental findings. Nothing acute is appreciated on noncontrast head CT study. Diagnostic code #2
--- NOTE | 2017-02-10 16:34 | EDM.PDOC ---
ED HPI GENERAL MEDICAL PROBLEM - General Chief Complaint: Laceration Stated Complaint: [facility] Time Seen by Provider: 02/10/17 15:46 Source of Information: Reports: EMS, Residential Records History Limitations: Reports: No Limitations - History of Present Illness INITIAL COMMENTS - FREE TEXT/NARRATIVE: The patient is a resident of [facility] and she fell and hit the back of her head. She has a laceration. She had no LOC. It appears she tripped and fell and did not pass out. She has no other complaints. She has dementia and she has been getting worse. The psychiatrist was there yesterday to make some changes. She has fallen 3 times this past month. She will follow commands. It appears she has no other injuries. Onset: Sudden Duration: Minutes: Location: Reports: Head (Back) Improves with: Reports: None Worsens with: Reports: None Associated Symptoms: Reports: No Other Symptoms - Related Data Allergies Allergy/AdvReac Type Severity Reaction Status Date / Time atorvastatin Allergy Other Verified 02/10/17 15:56 codeine Allergy Other Verified 02/10/17 15:56 losartan Allergy Other Verified 02/10/17 15:56 morphine Allergy Other Verified 02/10/17 15:56 Penicillins Allergy Other Verified 02/10/17 15:56 Home Meds: Home Meds Acetaminophen [Tylenol] 650 mg PO Q6H PRN 01/01/17 [History] Calcium Carbonate [Tums] 200 mg PO ASDIRECTED PRN 01/01/17 [History] Levothyroxine 150 mcg PO ACBREAKFAST 01/01/17 [History] Sennosides [Senna] 8.6 mg PO DAILY PRN 01/01/17 [History] Timolol Maleate [Timoptic 0.25% Ophth Soln] 1 drop EYELF BID 01/01/17 [History] Bisacodyl [Dulcolax] 10 mg RECTAL ASDIRECTED PRN 01/31/17 [History] Brimonidine Tartrate [Alphagan P 0.1% Ophth Soln] 1 drop EYEBOTH BID 01/31/17 [ History] [place]/Min Oil/Denae/Wool Alcoh [Eucerin Creme] 1 applic EARBOTH BID PRN [History] Colesevelam [Welchol] 3 tab PO BID 01/31/17 [History] Dextran 70/Hypromellose [Artificial Tears] 1 drop EYEBOTH QID 01/31/17 [History] Dorzolamide [Trusopt 2% Ophth Soln] 1 drop EYELF BID 01/31/17 [History] Latanoprost [Xalatan 0.005% Ophth Soln] 1 drop EYELF BEDTIME 01/31/17 [History] Metoprolol Tartrate [Lopressor] 50 mg PO BID 01/31/17 [History] OLANZapine [Olanzapine] 15 mg PO BEDTIME 01/31/17 [History] guaiFENesin/Dextromethorphan [Safetussin DM] 5 ml PO Q4H PRN 01/31/17 [History] metFORMIN [Glucophage] 500 mg PO BID 01/31/17 [History] Betamethasone/Clotrimazole [Lotrisone] 1 appful TOP BID 02/10/17 [History] Memantine HCl [Namenda XR] 1 tab PO DAILY 02/10/17 [History] Past Medical History HEENT History: Reports: Glaucoma, Other (See Below) Other HEENT History: dry eyes syndrome Cardiovascular History: Reports: High Cholesterol, Hypertension Gastrointestinal History: Reports: Chronic Constipation, GERD Genitourinary History: Reports: Renal Disease, Other (See Below) Other Genitourinary History: hx hyperglycemic--hyperosmolar coma ([facility]) 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: Musculoskeletal History: Reports: Gout Other Musculoskeletal History: uses walker Neurological History: Reports: Alzheimers Disease, Other (See Below) Other Neuro History: encephalopathy, AMS Psychiatric History: Reports: Alzheimers Disease, Schizophrenia, Other (See Below) Other Psychiatric History: delirium Endocrine/Metabolic History: Reports: Diabetes, Type II, Hypothyroidism, Obesity /BMI 30+ - Past Surgical History Other Endocrine Surgeries/Procedures: thyroid surgery Social & Family History - Family History Family Medical History: Noncontributory - Tobacco Use Smoking Status *Q: Unknown Ever Smoked Second Hand Smoke Exposure: No - Caffeine Use Caffeine Use: Reports: None - Recreational Drug Use Recreational Drug Use: No - Living Situation & Occupation Living situation: Reports: Extended Care Facility (Currently living in the [facility]) Occupation: Retired ED ROS GENERAL - Review of Systems Review Of Systems: See Below Constitutional: Reports: No Symptoms HEENT: Reports: Other (laceration to the back of her head) Respiratory: Reports: No Symptoms Cardiovascular: Reports: No Symptoms Endocrine: Reports: No Symptoms GI/Abdominal: Reports: No Symptoms : Reports: No Symptoms Musculoskeletal: Reports: No Symptoms Skin: Reports: No Symptoms Neurological: Reports: No Symptoms ED EXAM, SKIN/RASH Exam: See Below Exam Limited By: No Limitations General Appearance: Alert, No Apparent Distress Ears: Normal External Exam Nose: Normal Inspection Head: Other (5cm laceration to the occipital region of the scalp) Neck: Normal Inspection, Non-Tender Respiratory/Chest: No Respiratory Distress, Lungs Clear, Normal Breath Sounds Cardiovascular: Regular Rate, Rhythm, No Edema, No Murmur GI/Abdominal: Soft, Non-Tender, No Organomegaly, No Mass Back Exam: Normal Inspection Extremities: Normal Inspection Neurological: Alert, Oriented, No Motor/Sensory Deficits ED SKIN PROCEDURES - Laceration/Wound Repair Posterior Head Lac/Wound length In cm: 5 Appearance: Subcutaneous, Linear Anesthetic Type: Topical (LET) Skin Prep: Saline Exploration/Debridement/Repair: Wound Explored, In a Bloodless Field, Explored to Base Closed with: Ama # of Sutures: 7 Tetanus Status Addressed: Yes Complications: No Course - Vital Signs Last Recorded V/S: Last Vital Signs Temp 98.3 F 02/10/17 15:52 Pulse 78 02/10/17 15:52 Resp 22 H 02/10/17 15:52 BP 139/72 02/10/17 15:52 Pulse Ox 97 02/10/17 15:52 - Orders/Labs/Meds Orders: Active Orders 24 hr Category Date Time Status Vaccines to be Administered [RC] PER UNIT ROUTINE Care 02/10/17 15:57 Active Meds: Medications Discontinued Medications Generic Name Dose Route Start Last Admin Trade Name Lani PRN Reason Stop Dose Admin Diphtheria/Tetanus/Acell Pertussis 0.5 ml 02/10/17 15:57 02/10/17 16:48 Adacel IM 02/10/17 15:58 0.5 ml .ONCE ONE Administration Lidocaine/Tetracaine 1 ml 02/10/17 15:55 02/10/17 16:38 Let Soln TOP 02/10/17 15:56 1 ml ONETIME ONE Administration Lidocaine/Tetracaine Confirm 02/10/17 16:00 02/10/17 16:39 Let Soln Administered 02/10/17 16:01 Not Given Dose 1 ml .ROUTE .ST-MED ONE - Re-Assessments/Exams Free Text/Narrative Re-Assessment/Exam: 02/10/17 16:[address] of her head and LET to her wound and I will put some ama in it. 02/10/17 16:[address] of her head was negative for fracture of bleed. I stapled her head. We updated her tetanus. Departure - Departure Time of Disposition: 17:00 Disposition: Home, Self-Care 01 Condition: Good Clinical Impression: Fall Qualifiers: Encounter type: initial encounter Qualified Code(s): W19.XXXA - Unspecified fall, initial encounter Laceration of scalp Qualifiers: Encounter type: initial encounter Qualified Code(s): S01.01XA - Laceration without foreign body of scalp, initial encounter - Discharge Information Forms: ED Department Discharge Additional Instructions: Clean the laceration with warm soapy water 2 times per day and apply antibiotic ointment after. The ama can come out in 1 week. Look for any signs of infection such as redness, swelling, pain or drainage. - My Orders Last 24 Hours: My Active Orders 02/10/17 15:57 Vaccines to be Administered [RC] PER UNIT ROUTINE - Assessment/Plan Last 24 Hours: My Active Orders 02/10/17 15:57 Vaccines to be Administered [RC] PER UNIT ROUTINE
== END 2017-02-10 18:30 | disposition home or self-care (01) ==
LOC: JD.ED 15:45
DX: S01.01XA Laceration without foreign body of scalp, initial encounter (principal); Z88.5 Allergy status to narcotic agent; Z88.0 Allergy status to penicillin; Z79.899 Other long term (current) drug therapy; Z79.84 Long term (current) use of oral hypoglycemic drugs; W01.10XA Fall on same level from slipping, tripping and stumbling with subsequent striking against unspecified object, initial encounter
CPT/HCPCS: 12002; 70450; 90471; 90715; 99285; A9270; 99283-25

== ENCOUNTER 2017-04-15 12:15 | Emergency (ER) | payer MEDICARE, OTHER, MEDICAID ==
[2017-04-15] MEDS ORDERED: Sodium Chloride 0.9% 250 ML IV ONE (12:39)
[2017-04-15] MEDS ORDERED: Sodium Chloride 0.9% 10 ML Syringe FLUSH PRN (12:39)
--- NOTE | 2017-04-15 12:57 | EDM.PDOC ---
ED HPI GENERAL MEDICAL PROBLEM - General Chief Complaint: Neurological Problem Stated Complaint: [facility] Time Seen by Provider: 04/15/17 12:25 Source of Information: Reports: Patient, RN Notes Reviewed - History of Present Illness INITIAL COMMENTS - FREE TEXT/NARRATIVE: 82-year-old female has been brought here by [facility] for evaluation of generalized weakness, balance difficulty. She is a retirement patient at the [facility]. She does have history of moderately advanced dementia in addition to her other known medical problems. According to transfer records she appear to have been having some balance difficulty "crashing into things while ambulating with her walker. They felt that she was more unsteady and "out of control" than usual. There was no report of fall or injury. They did place her bed and she was transferred for here without further incident. On Arrival to ED she does deny chest, abdominal or other discomfort. She continues to remain afebrile. - Related Data Allergies Allergy/AdvReac Type Severity Reaction Status Date / Time atorvastatin Allergy Other Verified 02/10/17 15:56 codeine Allergy Other Verified 02/10/17 15:56 losartan Allergy Other Verified 02/10/17 15:56 morphine Allergy Other Verified 02/10/17 15:56 Penicillins Allergy Other Verified 02/10/17 15:56 Home Meds: Home Meds Acetaminophen [Tylenol] 650 mg PO Q6H PRN 01/01/17 [History] Calcium Carbonate [Tums] 200 mg PO ASDIRECTED PRN 01/01/17 [History] Levothyroxine 150 mcg PO ACBREAKFAST 01/01/17 [History] Sennosides [Senna] 8.6 mg PO DAILY PRN 01/01/17 [History] Timolol Maleate [Timoptic 0.25% Ophth Soln] 1 drop EYELF BID 01/01/17 [History] Bisacodyl [Dulcolax] 10 mg RECTAL ASDIRECTED PRN 01/31/17 [History] Brimonidine Tartrate [Alphagan P 0.1% Ophth Soln] 1 drop EYEBOTH BID 01/31/17 [ History] [place]/Min Oil/Denae/Wool Alcoh [Eucerin Creme] 1 applic EARBOTH BID PRN [History] Colesevelam [Welchol] 3 tab PO BID 01/31/17 [History] Dextran 70/Hypromellose [Artificial Tears] 1 drop EYEBOTH QID 01/31/17 [History] Dorzolamide [Trusopt 2% Ophth Soln] 1 drop EYELF BID 01/31/17 [History] Latanoprost [Xalatan 0.005% Ophth Soln] 1 drop EYELF BEDTIME 01/31/17 [History] Metoprolol Tartrate [Lopressor] 50 mg PO BID 01/31/17 [History] OLANZapine [Olanzapine] 15 mg PO BEDTIME 01/31/17 [History] guaiFENesin/Dextromethorphan [Safetussin DM] 10 ml PO Q4H PRN 01/31/17 [History] metFORMIN [Glucophage] 500 mg PO BID 01/31/17 [History] Betamethasone/Clotrimazole [Lotrisone] 1 appful TOP BID PRN 02/10/17 [History] Memantine HCl [Namenda XR] 14 mg PO DAILY 02/10/17 [History] Acetaminophen [Tylenol] 650 mg PO Q6H PRN 04/15/17 [History] Na Phos,M-B/Na Phos,Di-Ba [Fleet Enema] 30 ml RECTAL Q3D PRN 04/15/17 [History] Polyethylene Glycol 3350 [Miralax] 17 gr PO DAILY 04/15/17 [History] Past Medical History HEENT History: Reports: Glaucoma, Impaired Vision, Other (See Below) Other HEENT History: dry eyes syndrome, wears eyeglasses. 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: Musculoskeletal History: Reports: Gout Other Musculoskeletal History: uses walker Neurological History: Reports: Alzheimers Disease, Other (See Below) Other Neuro History: encephalopathy, AMS Psychiatric History: Reports: Alzheimers Disease, Schizophrenia, Other (See Below) Other Psychiatric History: delirium Endocrine/Metabolic History: Reports: Diabetes, Type II, Hypothyroidism, Obesity /BMI 30+ - Past Surgical History Other Endocrine Surgeries/Procedures: thyroid surgery Social & Family History - Family History Family Medical History: Noncontributory - Tobacco Use Smoking Status *Q: Never Smoker Second Hand Smoke Exposure: No - Caffeine Use Caffeine Use: Reports: None - Recreational Drug Use Recreational Drug Use: No - Living Situation & Occupation Living situation: Reports: Extended Care Facility (Currently living in the [facility]) Occupation: Retired ED ROS GENERAL - Review of Systems Review Of Systems: See Below Constitutional: Denies: Fever, Chills, Diaphoresis HEENT: Denies: Throat Pain Respiratory: Denies: Shortness of Breath, Pleuritic Chest Pain Cardiovascular: Denies: Chest Pain GI/Abdominal: Denies: Abdominal Pain, Nausea, Vomiting Musculoskeletal: Denies: Back Pain, Leg Pain Skin: Reports: No Symptoms Neurological: Reports: Other (Patient was resting, mildly drowsy when I did walk into the room, she was arousable and does answer simple questions and follows simple commands). Denies: Trouble Speaking, Weakness ED EXAM, NEURO - Physical Exam Exam: See Below General Appearance: Alert, No Apparent Distress Eye Exam: Bilateral Eye: PERRL Ears: Normal External Exam Nose: Normal Inspection Throat/Mouth: Normal Inspection, Other (Oral mucosa noted to be very dry) Neck: Normal Inspection, Supple Respiratory/Chest: No Respiratory Distress, Lungs Clear, Normal Breath Sounds Cardiovascular: Regular Rate, Rhythm GI/Abdominal: Soft, Non-Tender. No: Guarding Neurological: Alert, No Motor/Sensory Deficits, Other (Pleasantly confused, she does answer simple questions, follows simple commands, equal hand grasp bilaterally, feet withdraw equally to plantar stimulation) Extremities: Normal Inspection, Pedal Edema. No: Leg Pain (Very mild bilateral) , Increased Warmth, Redness Skin Exam: Warm, Dry, Normal Color Course - Vital Signs Last Recorded V/S: Last Vital Signs Temp 97.7 F 04/15/17 12:15 Pulse 71 04/15/17 12:15 Resp 20 04/15/17 12:15 BP 123/76 04/15/17 12:15 Pulse Ox 94 L 04/15/17 12:15 - Orders/Labs/Meds Orders: Active Orders 24 hr Category Date Time Status EKG 12 Lead [EKG Documentation Completion] [RC] STAT Care 04/15/17 12:39 Active Insert Davis Catheter [Insert Urinary Catheter] [OM.PC] Care 04/15/17 13:15 Ordered Q24H Peripheral IV Care [RC] . DIRECTED Care 04/15/17 12:40 Active Urinary Catheter Assessment [RC] ASDIRECTED Care 04/15/17 13:15 Active Chest 1V Frontal [CR] Stat Exams 04/15/17 12:39 Taken Sodium Chloride 0.9% [Saline Flush] Med 04/15/17 12:39 Active 10 ml FLUSH ASDIRECTED PRN Peripheral IV Insertion Adult [OM.PC] Stat Oth 04/15/17 12:39 Ordered Medication Orders Sodium Chloride (Saline Flush) 10 ml FLUSH ASDIRECTED PRN PRN Reason: Keep Vein Open Last Admin: 04/15/17 12:45 Dose: 10 ml Labs: Laboratory Tests 04/15/17 04/15/17 04/15/17 Range/Units 12:45 12:45 13:20 WBC 8.35 (3.98-10.04) K/mm3 RBC 3.84 L (3.98-5.22) M/mm3 Hgb 12.2 (11.2-15.7) gm/L Hct 35.7 (34.1-44.9) % MCV 93.0 (79.4-94.8) fl MCH 31.8 (25.6-32.2) pg MCHC 34.2 (32.2-35.5) g/dl RDW Std Deviation 45.9 (36.4-46.3) fL Plt Count 178 L (182-369) K/mm3 MPV 11.3 (9.4-12.3) fl Neut % (Auto) 60.1 (34.0-71.1) % Lymph % (Auto) 32.0 (19.3-51.7) % [place] % (Auto) 6.2 (4.7-12.5) % Eos % (Auto) 1.4 (0.7-5.8) Baso % (Auto) 0.2 (0.1-1.2) % Neut # (Auto) 5.01 (1.56-6.13) K/mm3 Lymph # (Auto) 2.67 (1.18-3.74) K/mm3 [place] # (Auto) 0.52 H (0.24-0.36) K/mm3 Eos # (Auto) 0.12 (0.04-0.36) K/mm3 Baso # (Auto) 0.02 (0.01-0.08) K/mm3 Sodium 143 (136-145) mEq/L Potassium 4.2 (3.5-5.1) mEq/L Chloride 110 H (98-107) mEq/L Carbon Dioxide 23 (21-32) mEq/L Anion Gap 14.2 (5-15) BUN 21 H (7-18) mg/dL Creatinine 1.3 H (0.55-1.02) mg/dL Est Cr Clr Drug Dosing 28.55 mL/min Estimated GFR (MDRD) 39 (>60) mL/min BUN/Creatinine Ratio 16.2 (14-18) Glucose 93 (83-115) mg/dL Calcium 9.1 (8.5-10.1) mg/dL Total Bilirubin 0.3 (0.2-1.0) mg/dL AST 15 (15-37) U/L ALT 14 (14-59) U/L Alkaline Phosphatase 36 L (46-116) U/L NT-Pro-B Natriuret Pep 314 (0-450) pg/mL Total Protein 6.4 (6.4-8.2) g/dl Albumin 3.1 L (3.4-5.0) g/dl Globulin 3.3 gm/dL Albumin/Globulin Ratio 0.9 L (1-2) Urine Color Yellow (Yellow) Urine Appearance Clear (Clear) Urine pH 5.5 (5.0-8.0) Ur Specific [place] > or = 1.030 (1.005-1.030) Urine Protein Negative (Negative) Urine Glucose (UA) Negative (Negative) Urine Ketones Negative (Negative) Urine Occult Blood Negative (Negative) Urine Nitrite Negative (Negative) Urine Bilirubin Negative (Negative) Urine Urobilinogen 0.2 (0.2-1.0) Ur Leukocyte Esterase Negative (Negative) Urine RBC 0-5 (0-5) /hpf Urine WBC 0-5 (0-5) /hpf Ur Epithelial Cells 0-5 (0-5) /hpf Urine Bacteria Rare (FEW) /hpf Urine Mucus Not seen (FEW) /hpf Meds: Medications Generic Name Dose Route Start Last Admin Trade Name Freq PRN Reason Stop Dose Admin Sodium Chloride 10 ml 04/15/17 12:39 04/15/17 12:45 Saline Flush FLUSH 10 ml ASDIRECTED PRN Administration Keep Vein Open Discontinued Medications Generic Name Dose Route Start Last Admin Trade Name Lani PRN Reason Stop Dose Admin Sodium Chloride 250 mls @ 999 mls/hr 04/15/17 12:39 04/15/17 12:53 Normal Saline IV 04/15/17 12:54 999 mls/hr .BOLUS ONE Administration Departure - Departure Time of Disposition: 14:28 Disposition: Home, Self-Care 01 Condition: Fair Clinical Impression: Difficulty balancing Alzheimer disease Qualifiers: Alzheimer's disease onset: late-onset Dementia behavioral disturbance: with behavioral disturbance Qualified Code(s): G30.1 - Alzheimer's disease with late onset - Discharge Information Referrals: Anuj Vaz MD [Primary Care Provider] - Forms: ED Department Discharge Additional Instructions: Continue present care, encourage fluids to maintain hydration, call medical provider or follow-up with medical provider as needed - My Orders Last 24 Hours: My Active Orders 04/15/17 12:39 EKG 12 Lead [EKG Documentation Completion] [RC] STAT Chest 1V Frontal [CR] Stat Sodium Chloride 0.9% [Saline Flush] 10 ml FLUSH ASDIRECTED PRN Peripheral IV Insertion Adult [OM.PC] Stat 04/15/17 12:40 Peripheral IV Care [RC] . DIRECTED 04/15/17 13:15 Insert Davis Catheter [Insert Urinary Catheter] [OM.PC] Q24H Urinary Catheter Assessment [RC] ASDIRECTED - Assessment/Plan Last 24 Hours: My Active Orders 04/15/17 12:39 EKG 12 Lead [EKG Documentation Completion] [RC] STAT Chest 1V Frontal [CR] Stat Sodium Chloride 0.9% [Saline Flush] 10 ml FLUSH ASDIRECTED PRN Peripheral IV Insertion Adult [OM.PC] Stat 04/15/17 12:40 Peripheral IV Care [RC] . DIRECTED 04/15/17 13:15 Insert Davis Catheter [Insert Urinary Catheter] [OM.PC] Q24H Urinary Catheter Assessment [RC] ASDIRECTED
--- NOTE | 2017-04-15 14:25 | CT ---
Head CT Technique: Multiple axial sections through the brain were obtained. Intravenous contrast was not utilized. Comparison: Previous head CT study of 02/10/17. Findings: Ventricles along with basal cisterns and sulci over the convexities are mildly prominent. Slight diminished density is seen within the periventricular and subcortical white matter compatible with small vessel ischemic demyelination change. These findings are similar to previous exam. No other abnormal parenchymal densities are seen. No evidence of intracranial hemorrhage. No midline shift or mass effect is seen. Atherosclerotic calcification noted within the vertebral vessels and within the carotid siphon. Bone window settings were reviewed which shows no acute calvarial abnormality. Visualized sinuses are clear. Impression: 1. Mild senescent change as noted above. Nothing acute is appreciated on noncontrast head CT study. No significant change is seen from previous study. Diagnostic code #2
[2017-04-15 15:16] VITALS: BP 152/78
--- NOTE | 2017-04-17 06:46 | CR ---
Chest: Portable view of the chest was obtained. Comparison: Prior chest x-ray of 01/01/17. Heart size appears within normal limits for portable technique. Tortuous thoracic aorta is noted. Small hiatal hernia is seen. Slight scarring and atelectasis is noted within both lung bases. Minimal scarring is noted within the right upper lung. Lungs otherwise are clear. Bony structures are grossly intact. Impression: 1. Mild bibasilar atelectasis and scarring. Slight scarring within the right upper lung. 2. Other incidental findings. Nothing acute is otherwise seen. Diagnostic code #2
== END 2017-04-15 15:14 | disposition home or self-care (01) ==
LOC: SUPCPDRO 12:15 → JD.ED 12:15
DX: G30.1 Alzheimer's disease with late onset (principal); F02.81 Dementia in other diseases classified elsewhere, unspecified severity, with behavioral disturbance; I10 Essential (primary) hypertension; E78.00 Pure hypercholesterolemia, unspecified; K21.9 Gastro-esophageal reflux disease without esophagitis; E11.9 Type 2 diabetes mellitus without complications; E03.9 Hypothyroidism, unspecified; Z79.84 Long term (current) use of oral hypoglycemic drugs; Z79.899 Other long term (current) drug therapy; Z88.0 Allergy status to penicillin; Z88.5 Allergy status to narcotic agent; Z88.8 Allergy status to other drugs, medicaments and biological substances
CPT/HCPCS: 36415; 51702; 70450; 71010; 80053; 81001; 83880; 85025; 93005; 99285; J7040; J7050; P9612; 99284

== ENCOUNTER 2017-04-25 14:20 | Inpatient (IN) | payer MEDICARE, OTHER, MEDICAID ==
--- NOTE | 2017-04-25 14:51 | EDM.PDOC ---
ED HPI GENERAL MEDICAL PROBLEM - General Chief Complaint: Neurological Problem Stated Complaint: [facility] Time Seen by Provider: 04/25/17 14:41 - History of Present Illness INITIAL COMMENTS - FREE TEXT/NARRATIVE: 82-year-old female brought in by EMS with increased weakness thought to be worse on the right side. The patient's had worsening weakness over the last several weeks that seems to be progressively getting worse she had pretty extensive evaluation here on the this month results of that workup were unrevealing including lab work x- ray evaluation and head CT. Patient is denying pain the patient did roll out of bed this morning hitting the floor it is unknown if she hit her head. They did not appreciate any new weakness with her at her 9:00 checks however at noon today she was not doing so well and then after this was thought maybe she had some right-sided weakness. She does not have right-sided weakness compared to the left here in the emergency department. The patient has advanced dementia and it is somewhat hard to evaluate. Her last known to be normal is nearly 6 hours. The patient shortly after arrival is accompanied by her daughter who has medical power of criminal attorney. The patient should be a DNR they do not want the patient transferred, and we just do the best with what we have to work with here. - Related Data Allergies Allergy/AdvReac Type Severity Reaction Status Date / Time atorvastatin Allergy Other Verified 02/10/17 15:56 codeine Allergy Other Verified 02/10/17 15:56 losartan Allergy Other Verified 02/10/17 15:56 morphine Allergy Other Verified 02/10/17 15:56 Penicillins Allergy Other Verified 02/10/17 15:56 Home Meds: Home Meds Acetaminophen [Tylenol] 650 mg PO Q6H PRN 01/01/17 [History] Calcium Carbonate [Tums] 200 mg PO ASDIRECTED PRN 01/01/17 [History] Levothyroxine 150 mcg PO ACBREAKFAST 01/01/17 [History] Sennosides [Senna] 8.6 mg PO DAILY PRN 01/01/17 [History] Timolol Maleate [Timoptic 0.25% Ophth Soln] 1 drop EYELF BID 01/01/17 [History] Bisacodyl [Dulcolax] 10 mg RECTAL ASDIRECTED PRN 01/31/17 [History] Brimonidine Tartrate [Alphagan P 0.1% Ophth Soln] 1 drop EYEBOTH BID 01/31/17 [ History] [place]/Min Oil/Denae/Wool Alcoh [Eucerin Creme] 1 applic EARBOTH BID PRN [History] Colesevelam [Welchol] 3 tab PO BID 01/31/17 [History] Dextran 70/Hypromellose [Artificial Tears] 1 drop EYEBOTH QID 01/31/17 [History] Dorzolamide [Trusopt 2% Ophth Soln] 1 drop EYELF BID 01/31/17 [History] Latanoprost [Xalatan 0.005% Ophth Soln] 1 drop EYELF BEDTIME 01/31/17 [History] Metoprolol Tartrate [Lopressor] 50 mg PO BID 01/31/17 [History] OLANZapine [Olanzapine] 15 mg PO BEDTIME 01/31/17 [History] guaiFENesin/Dextromethorphan [Safetussin DM] 10 ml PO Q4H PRN 01/31/17 [History] metFORMIN [Glucophage] 500 mg PO BID 01/31/17 [History] Betamethasone/Clotrimazole [Lotrisone] 1 appful TOP BID PRN 02/10/17 [History] Memantine HCl [Namenda XR] 14 mg PO DAILY 02/10/17 [History] Acetaminophen [Tylenol] 650 mg PO Q6H PRN 04/15/17 [History] Na Phos,M-B/Na Phos,Di-Ba [Fleet Enema] 30 ml RECTAL Q3D PRN 04/15/17 [History] Polyethylene Glycol 3350 [Miralax] 17 gr PO DAILY 04/15/17 [History] Past Medical History HEENT History: Reports: Glaucoma, Impaired Vision, Other (See Below) Other HEENT History: dry eyes syndrome, wears eyeglasses. 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: Musculoskeletal History: Reports: Gout Other Musculoskeletal History: uses walker Neurological History: Reports: Alzheimers Disease, Other (See Below) Other Neuro History: encephalopathy, AMS Psychiatric History: Reports: Alzheimers Disease, Dementia, Schizophrenia, Other (See Below) Other Psychiatric History: delirium Endocrine/Metabolic History: Reports: Diabetes, Type II, Hypothyroidism, Obesity /BMI 30+ - Past Surgical History Other Endocrine Surgeries/Procedures: thyroid surgery Social & Family History - Family History Family Medical History: Noncontributory - Tobacco Use Smoking Status *Q: Former Smoker Used Tobacco, but Quit: Yes Month Tobacco Last Used: 40 yrs Second Hand Smoke Exposure: No - Caffeine Use Caffeine Use: Reports: Coffee - Recreational Drug Use Recreational Drug Use: No - Living Situation & Occupation Living situation: Reports: Extended Care Facility (Currently living in the [facility]) Occupation: Retired ED ROS GENERAL - Review of Systems Review Of Systems: Unable To Obtain (Advanced dementia makes this difficult) ED EXAM, NEURO - Physical Exam Exam: See Below Exam Limited By: Other (She will follow simple directions) General Appearance: No Apparent Distress, Lethargic (She is slightly lethargic) Eye Exam: Left Eye: Conjunctival Injection (This is normal for her), Bilateral Eye: Normal Inspection, PERRL Ears: Normal External Exam, Normal Canal, Normal TMs Nose: Normal Inspection, Normal Mucosa Throat/Mouth: Normal Inspection, Other (Dry mucous membranes) Head Exam: Atraumatic, Normocephalic Neck: Normal Inspection, Supple, Non-Tender, Full Range of Motion. No: Lymphadenopathy (L), Lymphadenopathy (R) Respiratory/Chest: No Respiratory Distress, Lungs Clear, Normal Breath Sounds Cardiovascular: Regular Rate, Rhythm, No Edema, No Murmur GI/Abdominal: Normal Bowel Sounds, Soft, Non-Tender. No: Distended, Guarding, Rigid, Rebound Neurological: Other (No localized weakness the patient lift her legs and her arms as well as squeeze fingers. No right to left discrepancy) Back Exam: Normal Inspection. No: CVA Tenderness (L), Paraspinal Tenderness Extremities: Normal Inspection, Non-Tender Skin Exam: Warm, Dry, Intact Course - Vital Signs Last Recorded V/S: Last Vital Signs Temp 36.3 C 04/25/17 14:27 Pulse 89 04/25/17 14:27 Resp 20 04/25/17 14:27 BP 152/92 H 04/25/17 14:27 Pulse Ox 96 04/25/17 14:27 - Orders/Labs/Meds Orders: Active Orders 24 hr Category Date Time Status CULTURE BLOOD [BC] Stat Lab 04/25/17 15:25 Received CULTURE BLOOD [BC] Stat Lab 04/25/17 15:35 Received Blood Culture x2 Reflex Set [OM.PC] Stat Oth 04/25/17 14:42 Ordered Labs: Laboratory Tests 04/25/17 04/25/17 04/25/17 Range/Units 15:24 15:24 15:24 WBC 9.92 (3.98-10.04) K/mm3 RBC 4.04 (3.98-5.22) M/mm3 Hgb 12.6 (11.2-15.7) gm/L Hct 37.2 (34.1-44.9) % MCV 92.1 (79.4-94.8) fl MCH 31.2 (25.6-32.2) pg MCHC 33.9 (32.2-35.5) g/dl RDW Std Deviation 45.1 (36.4-46.3) fL Plt Count 193 (182-369) K/mm3 MPV 11.8 (9.4-12.3) fl Neutrophils % (Manual) 82 H (40-60) % Band Neutrophils % 0 (0-10) % Lymphocytes % (Manual) 15 L (20-40) % Atypical Lymphs % 0 % Monocytes % (Manual) 2 (2-10) % Eosinophils % (Manual) 1 (0.7-5.8) % Basophils % (Manual) 0 L (0.1-1.2) Platelet Estimate Adequate Plt Morphology Comment Normal RBC Morph Comment Normal PT 12.0 (8.0-13.0) SECONDS INR 1.09 APTT 29 (22-36) SECONDS Sodium 144 (136-145) mEq/L Potassium 3.6 (3.5-5.1) mEq/L Chloride 109 H (98-107) mEq/L Carbon Dioxide 23 (21-32) mEq/L Anion Gap 15.6 H (5-15) BUN 27 H (7-18) mg/dL Creatinine 1.2 H (0.55-1.02) mg/dL Est Cr Clr Drug Dosing 32.29 mL/min Estimated GFR (MDRD) 43 (>60) mL/min BUN/Creatinine Ratio 22.5 H (14-18) Glucose 98 (83-115) mg/dL Lactic Acid (0.4-2.0) mmol/L Calcium 10.0 (8.5-10.1) mg/dL Total Bilirubin 0.7 (0.2-1.0) mg/dL AST 21 (15-37) U/L ALT 15 (14-59) U/L Alkaline Phosphatase 35 L (46-116) U/L Troponin I < 0.017 (0.00-0.056) ng/mL NT-Pro-B Natriuret Pep 211 (0-450) pg/mL Total Protein 6.9 (6.4-8.2) g/dl Albumin 3.5 (3.4-5.0) g/dl Globulin 3.4 gm/dL Albumin/Globulin Ratio 1.0 (1-2) Urine Color (Yellow) Urine Appearance (Clear) Urine pH (5.0-8.0) Ur Specific [place] (1.005-1.030) Urine Protein (Negative) Urine Glucose (UA) (Negative) Urine Ketones (Negative) Urine Occult Blood (Negative) Urine Nitrite (Negative) Urine Bilirubin (Negative) Urine Urobilinogen (0.2-1.0) Ur Leukocyte Esterase (Negative) Urine RBC (0-5) /hpf Urine WBC (0-5) /hpf Ur Epithelial Cells (0-5) /hpf Urine Bacteria (FEW) /hpf Hyaline Casts (0-5) /lpf Urine Mucus (FEW) /hpf 04/25/17 04/25/17 Range/Units 15:24 16:00 WBC (3.98-10.04) K/mm3 RBC (3.98-5.22) M/mm3 Hgb (11.2-15.7) gm/L Hct (34.1-44.9) % MCV (79.4-94.8) fl MCH (25.6-32.2) pg MCHC (32.2-35.5) g/dl RDW Std Deviation (36.4-46.3) fL Plt Count (182-369) K/mm3 MPV (9.4-12.3) fl Neutrophils % (Manual) (40-60) % Band Neutrophils % (0-10) % Lymphocytes % (Manual) (20-40) % Atypical Lymphs % % Monocytes % (Manual) (2-10) % Eosinophils % (Manual) (0.7-5.8) % Basophils % (Manual) (0.1-1.2) Platelet Estimate Plt Morphology Comment RBC Morph Comment PT (8.0-13.0) SECONDS INR APTT (22-36) SECONDS Sodium (136-145) mEq/L Potassium (3.5-5.1) mEq/L Chloride (98-107) mEq/L Carbon Dioxide (21-32) mEq/L Anion Gap (5-15) BUN (7-18) mg/dL Creatinine (0.55-1.02) mg/dL Est Cr Clr Drug Dosing mL/min Estimated GFR (MDRD) (>60) mL/min BUN/Creatinine Ratio (14-18) Glucose (83-115) mg/dL Lactic Acid 1.1 (0.4-2.0) mmol/L Calcium (8.5-10.1) mg/dL Total Bilirubin (0.2-1.0) mg/dL AST (15-37) U/L ALT (14-59) U/L Alkaline Phosphatase (46-116) U/L Troponin I (0.00-0.056) ng/mL NT-Pro-B Natriuret Pep (0-450) pg/mL Total Protein (6.4-8.2) g/dl Albumin (3.4-5.0) g/dl Globulin gm/dL Albumin/Globulin Ratio (1-2) Urine Color Yellow (Yellow) Urine Appearance Clear (Clear) Urine pH 5.5 (5.0-8.0) Ur Specific [place] 1.025 (1.005-1.030) Urine Protein Trace H (Negative) Urine Glucose (UA) Negative (Negative) Urine Ketones 1+ H (Negative) Urine Occult Blood Negative (Negative) Urine Nitrite Negative (Negative) Urine Bilirubin Negative (Negative) Urine Urobilinogen 0.2 (0.2-1.0) Ur Leukocyte Esterase Negative (Negative) Urine RBC 0-5 (0-5) /hpf Urine WBC 0-5 (0-5) /hpf Ur Epithelial Cells Not seen (0-5) /hpf Urine Bacteria Few (FEW) /hpf Hyaline Casts 5-10 H (0-5) /lpf Urine Mucus Few (FEW) /hpf Meds: Medications Discontinued Medications Generic Name Dose Route Start Last Admin Trade Name Lani PRN Reason Stop Dose Admin Lactated Ringer's 500 mls @ 999 mls/hr 04/25/17 15:00 04/25/17 15:24 Ringers, Lactated IV 04/25/17 15:30 999 mls/hr .BOLUS ONE Administration - Re-Assessments/Exams Free Text/Narrative Re-Assessment/Exam: 04/25/17 17:29 The evaluation nondiagnostic at this point chest x-ray showed questionable left- sided density follow-up CT was nondiagnostic she's got some left basilar fibrosis no pneumonia or a small nodule 3 mm in the right middle lobe no history of smoking this could be ignored head CT shows no acute changes she is possible she's had a TIA but no specific findings at this point overall medically she just doing worse. Case discussed with Dr. Vu patient will come in for further evaluation. Departure - Departure Time of Disposition: 17:31 Disposition: Admitted As Inpatient 68 Clinical Impression: TIA (transient ischemic attack), Failure to thrive - Discharge Information - My Orders Last 24 Hours: My Active Orders 04/25/17 14:42 Blood Culture x2 Reflex Set [OM.PC] Stat 04/25/17 15:25 CULTURE BLOOD [BC] Stat 04/25/17 15:35 CULTURE BLOOD [BC] Stat - Assessment/Plan Last 24 Hours: My Active Orders 04/25/17 14:42 Blood Culture x2 Reflex Set [OM.PC] Stat 04/25/17 15:25 CULTURE BLOOD [BC] Stat 04/25/17 15:35 CULTURE BLOOD [BC] Stat
[2017-04-25] MEDS ORDERED: Lactated Ringers 500 ML IV ONE (15:00)
--- NOTE | 2017-04-25 15:31 | CT ---
Head CT Technique: Multiple axial sections through the brain were obtained. Intravenous contrast was not utilized. Comparison: Prior head CT study of 04/15/17. Findings: Ventricles along with basal cisterns and sulci over the convexities are mildly prominent. Mild diminished density is noted within the periventricular white matter compatible with small vessel ischemic demyelination change which appears fairly stable from prior exam. No other abnormal parenchymal densities are seen. No evidence of intracranial hemorrhage. No midline shift or mass effect is seen. Atherosclerotic calcification is seen within the vertebral vessels and within the carotid siphon. Visualized sinuses are clear. No acute calvarial abnormality is appreciated. Impression: 1. Senescent change as described above. No acute intracranial abnormality is seen. No significant change from previous study. Diagnostic code #2
--- NOTE | 2017-04-25 15:32 | CR ---
Chest: Portable view of the chest was obtained. Comparison: Prior chest x-ray of 01/01/17. Heart size and mediastinum are within normal limits for portable technique. Slight increased density within the left mid to lower lung is noted. Some of this appears to be chronic but difficult to exclude minimal superimposed pneumonia or atelectasis. Lungs otherwise are clear. Bony structures are grossly intact. Impression: 1. Slight increased density within the left mid to lower lung as noted above. Diagnostic code #3
--- NOTE | 2017-04-25 16:54 | CT ---
CT chest Technique: Multiple axial sections through the chest were obtained. Intravenous contrast was not utilized. Comparison: Prior chest x-ray of performed on the same day (2:43 PM). Findings: Moderately large hiatal hernia is seen. Minimal coronary artery calcification is noted. Slight atherosclerotic calcification is seen within the thoracic aorta and branch vessels. No mediastinal or hilar adenopathy is seen. Slight increased lung markings within the lingula and left base are seen compatible with mild fibrosis. Small nodule is noted within the right middle lobe measuring about 3 mm. Lungs otherwise are clear. Bone window settings were reviewed which show scattered disc space narrowing and vacuum phenomena within the mid and lower thoracic spine with scattered endplate osteophytes. Impression: 1. 3 mm nodule within the right middle lobe. If patient is a smoker, recommend repeat study in 1 year. If patient is not a smoker this can be ignored. 2. Slight left basilar fibrosis. 3. Other incidental findings. Nothing acute is identified. Diagnostic code #3
[2017-04-25] MEDS ORDERED: Docusate Sodium 100 MG Cap PO PRN (20:10)
[2017-04-25] MEDS ORDERED: Polyethylene Glycol 3350 Powder 17 GM Packet PO PRN (20:10)
[2017-04-25] MEDS ORDERED: Albuterol/Ipratropium 3.0-0.5 MG/3 ML Neb Soln NEB PRN (20:10)
[2017-04-25] MEDS ORDERED: Bisacodyl 5 MG Tab PO PRN (20:10)
[2017-04-25] MEDS ORDERED: Ondansetron 4 MG Tab.DIS PO PRN (20:10)
[2017-04-25] MEDS ORDERED: Acetaminophen 325 MG Tab PO PRN (20:10)
[2017-04-25] MEDS ORDERED: Ondansetron 4 MG/2 ML SDV IV PRN (20:10)
--- NOTE | 2017-04-25 20:54 | PCM.HP ---
H&P History of Present Illness - General Date of Service: 04/25/17 Admit Problem/Dx: Admission Diagnosis/Problem Admission Diagnosis/Problem TIA, Transient ischemic attack Source of Information: Patient, Family, Old Records, Provider, RN, RN Notes Reviewed History Limitations: Reports: Altered Mental Status (advanced dimentia but follows simple commands ) - History of Present Illness Initial Comments - Free Text/Narative: Ragini Murillo is a 82 yo female who presents to our ED today via ambulance from [place], [facility]. She has had worsening weakness over the past several weeks. She was seen on the of this month after falls and weakness and had a very extensive workup including lab work and head CT, which was essentially unremarkable. His reported the patient rolled out of bed this morning and hit the floor, however it is unknown if she had her head. On arrival she is denying any pain. It is reported at her 9 AM checks the patient was doing well however around noon today they thought she had some right-sided weakness. On arrival to the ED no weakness is noted. She does have advanced dementia. The patient's daughter arrives in the ED and reports she would like the patient to be DNR/DNI. The daughter is the medical power of senior attorney. The daughter refuses transfer and would like us to do what we can locally. In the ED she is afebrile with a temp of 36.3 Celsius. Pulse is 89, respirations 20, BP is elevated at 150/92, and pulse ox is 96% on room air. Blood cultures are ordered. W CBC is normal at 9.9 to. Hemoglobin 12.6. Hematocrit 37.2. She was normocytic. Platelets are normal at 193,000. Neutrophils are elevated at 82%. There is no bandemia. PT is normal at 12. INR 1.09. APTT 29. Sodium normal at 144. Potassium 3.6. Chloride slightly elevated at 109. Carbon dioxide 23. Anion gap is slightly elevated at 15.6. BUN is elevated at 27. Creatinine elevated at 1.2. EGFR is 43. Glucose 98. Lactic acid 1.1. Calcium normal at 10. Total bilirubin 0.7. AST 21, ALT 15, alkaline phosphatase 35. Troponin negative at less than 0.017. ProBNP 211. Albumin 3.5. UA is negative however trace urine protein and 1+ ketones are noted. Hyaline casts are also noted at 5-10. Portable CXR is obtained showing what was thought to be a slightly increased density within the left mid to lower lung is reported difficult to exclude minimal superimposed pneumonia or atelectasis. This is interpreted by Dr. Saleh. Chest CT is obtained and interpreted by Dr. Saleh. Impression: 1. 3 mm nodule within the right middle lobe. If patient is a smoker, recommend repeat study in one year. If patient does not smoke or this can be ordered. 2. Slight left basilar fibrosis. 3. Other incidental findings. Nothing acute is identified. Head CT is also obtained and interpreted by Dr. Saleh as: 1. Senescent changes described above. No acute intracranial abnormalities seen. No significant change from previous study. She carries a history of: Glaucoma, dry syndrome, HLD, HTN, chronic constipation , GERD, Alzheimer's disease, dementia, schizophrenia, delirium, type II DM, hypothyroidism, obesity. She says really admitted to the medical floor with telemetry. She is a DNR\ DNI. I discussed this with patient's daughter on the phone as she is listed as full code in [facility] records. Daughter who is power of senior attorney requests DNR/DNI as patient is confused and has trouble with answering questions. Patient's PCP is Dr. Vaz at [facility]. - Related Data Allergies/Adverse Reactions: Allergies Allergy/AdvReac Type Severity Reaction Status Date / Time atorvastatin Allergy Other Verified 02/10/17 15:56 codeine Allergy Other Verified 02/10/17 15:56 losartan Allergy Other Verified 02/10/17 15:56 morphine Allergy Other Verified 02/10/17 15:56 Penicillins Allergy Other Verified 02/10/17 15:56 Home Medications: Home Meds Acetaminophen [Tylenol] 650 mg PO Q6H PRN 01/01/17 [History] Calcium Carbonate [Tums] 200 mg PO ASDIRECTED PRN 01/01/17 [History] Levothyroxine 150 mcg PO ACBREAKFAST 01/01/17 [History] Sennosides [Senna] 8.6 mg PO DAILY PRN 01/01/17 [History] Timolol Maleate [Timoptic 0.25% Ophth Soln] 1 drop EYELF BID 01/01/17 [History] Bisacodyl [Dulcolax] 10 mg RECTAL ASDIRECTED PRN 01/31/17 [History] Brimonidine Tartrate [Alphagan P 0.1% Ophth Soln] 1 drop EYEBOTH BID 01/31/17 [ History] [place]/Min Oil/Denae/Wool Alcoh [Eucerin Creme] 1 applic EARBOTH BID PRN [History] Colesevelam [Welchol] 3 tab PO BID 01/31/17 [History] Dextran 70/Hypromellose [Artificial Tears] 1 drop EYEBOTH QID 01/31/17 [History] Dorzolamide [Trusopt 2% Ophth Soln] 1 drop EYELF BID 01/31/17 [History] Latanoprost [Xalatan 0.005% Ophth Soln] 1 drop EYELF BEDTIME 01/31/17 [History] Metoprolol Tartrate [Lopressor] 50 mg PO BID 01/31/17 [History] OLANZapine [Olanzapine] 15 mg PO BEDTIME 01/31/17 [History] guaiFENesin/Dextromethorphan [Safetussin DM] 10 ml PO Q4H PRN 01/31/17 [History] metFORMIN [Glucophage] 500 mg PO BID 01/31/17 [History] Betamethasone/Clotrimazole [Lotrisone] 1 appful TOP BID PRN 02/10/17 [History] Memantine HCl [Namenda XR] 14 mg PO DAILY 02/10/17 [History] Acetaminophen [Tylenol] 650 mg PO Q6H PRN 04/15/17 [History] Na Phos,M-B/Na Phos,Di-Ba [Fleet Enema] 30 ml RECTAL Q3D PRN 04/15/17 [History] Polyethylene Glycol 3350 [Miralax] 17 gr PO DAILY 04/15/17 [History] Past Medical History HEENT History: Reports: Glaucoma, Impaired Vision, Other (See Below) Other HEENT History: dry eyes syndrome, wears eyeglasses. Cardiovascular History: Reports: High Cholesterol, Hypertension Gastrointestinal History: Reports: Chronic Constipation, GERD Genitourinary History: Reports: Renal Disease, Other (See Below) Other Genitourinary History: hx hyperglycemic--hyperosmolar coma ([facility]) WORK FROM HOME History: Reports: Musculoskeletal History: Reports: Gout Other Musculoskeletal History: uses walker Neurological History: Reports: Alzheimers Disease, Other (See Below) Other Neuro History: encephalopathy, AMS Psychiatric History: Reports: Alzheimers Disease, Dementia, Schizophrenia, Other (See Below) Other Psychiatric History: delirium Endocrine/Metabolic History: Reports: Diabetes, Type II, Hypothyroidism, Obesity /BMI 30+ - Past Surgical History Other Endocrine Surgeries/Procedures: thyroid surgery Social & Family History - Family History Family Medical History: Noncontributory - Tobacco Use Smoking Status *Q: Former Smoker Used Tobacco, but Quit: Yes Month Tobacco Last Used: 40 yrs Second Hand Smoke Exposure: No - Caffeine Use Caffeine Use: Reports: Coffee - Recreational Drug Use Recreational Drug Use: No - Living Situation & Occupation Living situation: Reports: Extended Care Facility (Currently living in the [facility]) Occupation: Retired H&P Review of Systems - Review of Systems: Review Of Systems: Unable To Obtain Free Text/Narrative: I attempted to obtain a review of systems from the patient. The patient does have advanced dementia. I asked the patient if she had any pain and she stated no. I then asked if she was having any chest pain and she said yes. I asked a few more questions after this which were answered as yes. I returned to the question of if she had any chest pain and she said no. The patient went back and forth on multiple questions like this. In regards to this confusion, the patient's daughter reported to nursing that this is essentially her baseline. It is noted that she has been recently seen in the ED 2 prior times for falls and weakness. Today was her third head CT in recent months. The patient is otherwise pleasant. Her daughter does report the patient is very mobile and has a history of bad sundowning. She reports the patient will frequently get out of bed. This was communicated to nursing as well and documented in the [facility] notes. Exam - Exam Exam: See Below - Vital Signs Vital Signs: Last Vital Signs Temp 97.7 F 04/25/17 19:10 Pulse 75 04/25/17 19:10 Resp 14 04/25/17 19:10 BP 122/73 04/25/17 19:10 Pulse Ox 96 04/25/17 19:10 Weight: 200 lb - Exam Quality Assessment: DVT Prophylaxis General: Alert, Cooperative, Other (sleepy). No: Mild Distress HEENT: EACs Clear, EOMI, Hearing Intact, Mucosa Moist & [place], Nares Patent, Normal Nasal Septum, Posterior Pharynx Clear, Other (left eye conjunctival injection which is baseline), PERRLA Neck: Supple, Trachea Midline, Full Range of Motion. No: JVD, Thyromegaly Lungs: Clear to Auscultation, Normal Respiratory Effort Cardiovascular: Regular Rate, Regular Rhythm GI/Abdominal Exam: Normal Bowel Sounds, Soft, Non-Tender, No Organomegaly, No Distention, No Abnormal Bruit, No Mass, Pelvis Stable (Female) Exam: Deferred Rectal (Female) Exam: Deferred Back Exam: Normal Inspection, Full Range of Motion. No: CVA Tenderness (L), CVA Tenderness (R) Extremities: Normal Inspection, Normal Range of Motion, Non-Tender, No Pedal Edema, Normal Capillary Refill Peripheral Pulses: 1+: Radial (L), Radial (R), Dorsalis Pedis (L), Dorsalis Pedis (R) Skin: Warm, Dry, Intact Neurological: Cranial Nerves Intact (Grossly), Strength Equal Bilateral, Normal Tone, Sensation Intact Neuro Extensive - Mental Status: Alert, Disorientation to Place, Disorientation to Time, Other (Confusion family reports as baseline.) Neuro Extensive - Motor, Sensory, Reflexes: CN II-XII Intact (Grossly). No: Tongue Deviation (L), Tongue Deviation (R), Receptive Aphasia, Expressive Aphasia, Total Aphasia, Facial palsy (L), Facial Palsy (R), Hemeplagia (L) Psychiatric: Alert. No: Normal Mood - Patient Data Result Diagrams: 04/25/17 15:24 04/25/17 15:24 EKG INTERPRETATION EKG Date: 04/25/17 Time: 20:46 Rhythm: NSR [place]: Normal P-Wave: Present QRS: Normal ST-T: Normal QT: Normal EKG Interpretation Comments: T wave inversion on III, V1. Q waves noted in III, aVF. *Q Meaningful Use (ADM) - VTE *Q VTE Criteria *Q: - Stroke *Q Stroke Criteria *Q: - AMI *Q AMI Criteria *Q: - Problem List (1) TIA (transient ischemic attack) SNOMED Code(s): 020676068 ICD Code: G45.9 - TRANSIENT CEREBRAL ISCHEMIC ATTACK, UNSPECIFIED Status: Acute Priority: High Current Visit: Yes Qualifiers: Transient cerebral ischemia type: unspecified Qualified Code(s): G45.9 - Transient cerebral ischemic attack, unspecified (2) Hypomagnesemia SNOMED Code(s): 722348500 ICD Code: E83.42 - HYPOMAGNESEMIA Status: Acute Priority: High Current Visit: Yes (3) Failure to thrive SNOMED Code(s): 10020287 ICD Code: [id number] - Status: Acute Priority: High Current Visit: Yes Qualifiers: Failure to thrive age range: in adult Qualified Code(s): R62.7 - Adult failure to thrive (4) Alzheimer disease SNOMED Code(s): 99849176 ICD Code: G30.9 - ALZHEIMER'S DISEASE, UNSPECIFIED Status: Chronic Priority: High Current Visit: Yes Qualifiers: Alzheimer's disease onset: late-onset Dementia behavioral disturbance: with behavioral disturbance Qualified Code(s): G30.1 - Alzheimer's disease with late onset; F02.81 - Dementia in other diseases classified elsewhere with behavioral disturbance (5) Confusion SNOMED Code(s): 008115443 ICD Code: R41.0 - DISORIENTATION, UNSPECIFIED Status: Chronic Priority: High Current Visit: Yes (6) Hypothyroidism SNOMED Code(s): 13849346 ICD Code: E03.9 - HYPOTHYROIDISM, UNSPECIFIED Status: Chronic Priority: Low Current Visit: No Qualifiers: Hypothyroidism type: unspecified Qualified Code(s): E03.9 - Hypothyroidism , unspecified (7) Lung nodule < 6cm on CT SNOMED Code(s): 324841245 ICD Code: R91.1 - SOLITARY PULMONARY NODULE Status: Chronic Priority: Low Current Visit: Yes (8) Type II diabetes mellitus SNOMED Code(s): 35579969 ICD Code: E11.9 - TYPE 2 DIABETES MELLITUS WITHOUT COMPLICATIONS Status: Chronic Priority: Low Current Visit: Yes Qualifiers: Diabetes mellitus complication status: with unspecified complications Diabetes 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 insulin use: without petroleum terminal plant operator use Qualified Code( s): E11.8 - Type 2 diabetes mellitus with unspecified complications Problem List Initiated/Reviewed/Updated: Yes Orders Last 24hrs: Active Orders 24 hr Category Date Time Status Patient Status [ADT] Stat ADT 04/25/17 18:54 Active Ambulate [RC] PER UNIT ROUTINE Care 04/25/17 20:11 Active Antiembolic Devices [RC] PER UNIT ROUTINE Care 04/25/17 20:12 Active Blood Glucose Check, Bedside [RC] BIDMEALS Care 04/25/17 20:10 Active Cardiac Monitoring [RC] CONTINUOUS Care 04/25/17 20:11 Active EKG 12 Lead [EKG Documentation Completion] [RC] ROUTINE Care 04/25/17 20:26 Active HOB [Head of Bed Elevation] [RC] ASDIRECTED Care 04/25/17 20:30 Active Height and Weight [RC] DAILY Care 04/25/17 20:10 Active Intake and Output [RC] QSHIFT Care 04/25/17 20:11 Active Neuro Check [RC] BID Care 04/25/17 20:30 Active Oxygen Therapy [RC] PRN Care 04/25/17 20:10 Active Pulse Oximetry [RC] PRN Care 04/25/17 20:11 Active RT Aerosol Therapy [RC] ASDIRECTED Care 04/25/17 20:16 Active Up With Assistance [RC] ASDIRECTED Care 04/25/17 20:10 Active VTE/DVT Education [RC] PER UNIT ROUTINE Care 04/25/17 20:10 Active Vital Signs [RC] Q4H Care 04/25/17 20:10 Active Consult to Case Management [CONS] Routine Cons 04/25/17 20:10 Active Consult to Power Marketer [CONS] Routine Cons 04/25/17 20:10 Active OT Evaluation and Treatment [CONS] Routine Cons 04/25/17 20:10 Active PT Evaluation and Treatment [CONS] Routine Cons 04/25/17 20:10 Active VAT SKIMMER Evaluation and Treatment [CONS] Routine Cons 04/25/17 20:10 Active ADA Diabetic [[place] Diabetic Association Diet] [DIET Diet 04/26/17 Breakfast Active ] Heart Healthy Diet [DIET] Diet 04/25/17 Breakfast Active Brain wo Cont [MR] Routine Exams 04/25/17 20:41 Stop Req Brain wo Cont [MR] Routine Exams 04/26/17 06:00 Ordered Carotid Comp [US] Routine Exams 04/25/17 20:31 Stop Req Carotid Comp [US] Routine Exams 04/26/17 06:00 Ordered Echo 2D wo Cont [US] Routine Exams 04/25/17 20:31 Stop Req Echo 2D wo Cont [US] Routine Exams 04/26/17 06:00 Ordered A1C [GLYCOSYLATED HEMOGLOBIN,HGBA1C] [CHEM] Routine Lab 04/26/17 05:11 Ordered BASIC METABOLIC PANEL,BMP [CHEM] AM Lab 04/26/17 05:11 Ordered BASIC METABOLIC PANEL,BMP [CHEM] AM Lab 04/27/17 05:11 Ordered BASIC METABOLIC PANEL,BMP [CHEM] AM Lab 04/28/17 05:11 Ordered BASIC METABOLIC PANEL,BMP [CHEM] AM Lab 04/29/17 05:11 Ordered CBC WITH AUTO DIFF [HEME] AM Lab 04/26/17 05:11 Ordered CBC WITH AUTO DIFF [HEME] AM Lab 04/27/17 05:11 Ordered CBC WITH AUTO DIFF [HEME] AM Lab 04/28/17 05:11 Ordered CBC WITH AUTO DIFF [HEME] AM Lab 04/29/17 05:11 Ordered LIPID PANEL [CHEM] Routine Lab 04/26/17 05:11 Ordered MAGNESIUM [CHEM] AM Lab 04/26/17 05:11 Ordered MAGNESIUM [CHEM] AM Lab 04/27/17 05:11 Ordered MAGNESIUM [CHEM] AM Lab 04/28/17 05:11 Ordered MAGNESIUM [CHEM] AM Lab 04/29/17 05:11 Ordered MAGNESIUM [CHEM] Routine Lab 04/25/17 15:25 Received Acetaminophen [Tylenol] Med 04/25/17 20:10 Active 650 mg PO Q4H PRN Albuterol/Ipratropium [DuoNeb 3.0-0.5 MG/3 ML] Med 04/25/17 20:10 Active 3 ml NEB Q4H PRN Bisacodyl [Dulcolax] Med 04/25/17 20:10 Active 5 mg PO DAILY PRN Docusate Sodium [Colace] Med 04/25/17 20:10 Active 100 mg PO BID PRN Docusate Sodium/Sennosides [Senna Plus] Med 04/25/17 20:10 Active 1 tab PO BID PRN Ondansetron [Zofran ODT] Med 04/25/17 20:10 Active 4 mg PO Q6H PRN Ondansetron [Zofran] Med 04/25/17 20:10 Active 4 mg IV Q6H PRN Polyethylene Glycol 3350 [MiraLAX] Med 04/25/17 20:10 Active 17 gm PO DAILY PRN Sodium Chloride 0.9% [Normal Saline] 1,000 ml Med 04/25/17 20:15 Active IV ASDIRECTED Antiembolic Hose [OM.PC] Per Unit Routine Oth 04/25/17 20:11 Ordered Precautions [COMM] Routine Oth 04/25/17 20:36 Ordered Resuscitation Status Routine Resus Stat 04/25/17 20:10 Ordered Medication Orders Acetaminophen (Tylenol) 650 mg PO Q4H PRN PRN Reason: Pain (Mild 1-3)/fever Albuterol/Ipratropium (Duoneb 3.0-0.5 Mg/3 Ml) 3 ml NEB Q4H PRN PRN Reason: Shortness Of Breath/wheezing Bisacodyl (Dulcolax) 5 mg PO DAILY PRN PRN Reason: Constipation Docusate Sodium (Colace) 100 mg PO BID PRN PRN Reason: Constipation Sodium Chloride (Normal Saline) 1,000 mls @ 100 mls/hr IV ASDIRECTED VICKIE Ondansetron HCl (Zofran) 4 mg IV Q6H PRN PRN Reason: Nausea/Vomiting Ondansetron HCl (Zofran Odt) 4 mg PO Q6H PRN PRN Reason: nausea, able to take PO Polyethylene Glycol (Miralax) 17 gm PO DAILY PRN PRN Reason: Constipation Senna/Docusate Sodium (Senna Plus) 1 tab PO BID PRN PRN Reason: Constipation Assessment/Plan Comment:: I/P: Acute: TIA -[facility] staff reports right sided weakness -Ambulance and ED staff report weakness has subsided and returned to baseline -Advanced dementia; able to follow simple commands; difficult to assess -Head CT in ED shows nothing acute; senescent changes noted; this is compared to prior head CT study performed 04/15/17 -Neuro exam in ED and on floor essentially unremarkable -Ambulating well now -12 lead obtained - NSR with rate of 86. Inverted T waves in III, V1. Q waves in III, aVF. -Pt 12.0; INR 1.09; APTT 29 -UA negative (However trace protein, 1+ ketones, and 5-10 hyaline casts noted ) -Carotid ultrasound ordered -Echo ordered -Brain MRI ordered -Lipid panel ordered -BID neuro checks per nursing -HOB elevated 30 degrees -VAT SKIMMER swallow study in AM Failure to thrive -Past ED notes reveal dehydration and multiple falls -Labs today suggest some mild dehydration as well -IV fluids ordered -PT/OT Hypomagnesemia -Magnesium 1.6 -Ordered 2 gram IV replacement -Continue to monitor 3 mm lung nodule -Noted on CT scan within right middle lobe -Pt. is former smoker of 40 years but quit -Follow-up CT recommended in one year by Dr. Saleh, Radiologist. Chronic: Type II DM - Reportedly SNF checks blood sugar weekly; daily checks ordered; A1C ordered; Continue home meds Glaucoma Dry eye syndrome Chronic constipation HLD HTN GERD Alzheimers disease Dimentia Schizophrenia Hypothyroidism - TSH ordered Obesity Plan: Admit to medical floor on telemetry CM/SW for discharge planning PT/OT DVT prophylaxis: ERIK Giles GI prophylaxis - Pepcid Home medications as ordered Other orders as listed above Routine AM labs HIGH FALL RISK Code status: DNR/DNI. Her daughter is medical POA. Her PCP is Dr. Vaz at [facility] here in [place].
[2017-04-25] MEDS ORDERED: Magnesium Sulfate/Water 2 GM in Premix Bag 1 BAG IV ONE (20:59)
[2017-04-25] MEDS ORDERED: Betamethasone Dipropionate/Clotrimazole 0.05-1% Crm 15 GM Tube TOP PRN (23:26)
[2017-04-25] MEDS ORDERED: MEMANTINE HCL 7 MG PO SCH (23:30)
[2017-04-25] MEDS ORDERED: BRIMONIDINE TARTRATE EYEBOTH SCH (23:30)
[2017-04-25] MEDS ORDERED: Metoprolol Tartrate 50 MG Tab PO SCH (23:30)
[2017-04-25] MEDS: Colesevelam 625 MG Tab PO SCH (23:59)
[2017-04-26] MEDS: Sodium Chloride 0.9% 1,000 ML IV SCH ×3 (00:06→22:41)
[2017-04-26] MEDS: DORZOLAMIDE 2% EYELF SCH ×3 (04:06→22:51)
[2017-04-26] MEDS: Timolol Maleate 0.25% Ophth Soln 5 ML Bottle EYELF SCH ×3 (04:06→22:41)
[2017-04-26] MEDS: Levothyroxine 150 MCG Tab PO SCH (06:36)
[2017-04-26] MEDS: metFORMIN 500 MG Tab PO SCH ×3 (06:36→18:23)
[2017-04-26] MEDS: Famotidine 20 MG Tab PO SCH (08:38)
[2017-04-26] MEDS: Memantine 10 MG Tab PO SCH ×2 (08:38→20:08)
[2017-04-26] MEDS: Colesevelam 625 MG Tab PO SCH ×2 (08:38→20:08)
[2017-04-26] MEDS: Metoprolol Tartrate 50 MG Tab PO SCH (08:39)
[2017-04-26] MEDS: Hypromellose 0.5% Ophth Soln 15 ML Bottle EYEBOTH SCH ×4 (08:40→22:36)
[2017-04-26] MEDS: Brimonidine 0.2% Ophth Soln 5 ML Bottle EYEBOTH SCH ×2 (08:40→22:36)
[2017-04-26] MEDS ORDERED: Haloperidol Lactate 5 MG/ML SDV IVPUSH ONE ×2 (09:21→14:32)
[2017-04-26] MEDS ORDERED: LORazepam 2 MG/ML MDV IVPUSH ONE ×2 (09:22→14:31)
--- NOTE | 2017-04-26 11:38 | US ---
Carotid ultrasound: Duplex and color flow imaging was obtained of the carotid arteries. Comparison: No previous carotid imaging. Technologist's note: Agitated and uncooperative patient Mild amount of scattered plaque is seen on both sides. Velocity measurements: Right side: CCA has a peak systolic velocity of 0.61 m/s. ICA has a peak systolic velocity of 0.90 m/s and peak end-diastolic velocity of 0.24 m/s. ECA has a peak systolic velocity of 1.02 m/s. Vertebral artery has a peak systolic velocity of 0.33 m/s. ICA/CCA ratio is 1.47. Left side: CCA has a peak systolic velocity of 0.88 m/s. ICA has a peak systolic velocity of 0.69 m/s and peak end-diastolic velocity of 0.23 m/s. ECA has a peak systolic velocity of 0.76 m/s. Vertebral artery has a peak systolic velocity of 0.46 m/s. ICA/CCA ratio is 0.78. Impression: 1. Mild amount of scattered plaque. 2. Velocity measurements within both internal carotid arteries correspond to stenosis in the range of 1-49%. Diagnostic code #2
--- NOTE | 2017-04-26 12:36 | MR ---
MRI brain Technique: T1 sagittal; T2, T2 FLAIR, T1 and diffusion axial; T1 FLAIR coronal images were obtained. Findings: I do not see any definite abnormal diffusion abnormalities. Ventricles along with basal cisterns and sulci with convexities are mildly prominent. Scattered areas of increased signal are seen within the periventricular white matter as well as subcortical white matter compatible with small vessel ischemic demyelination change. 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 No other abnormal signal is seen within the brain parenchyma. No midline shift or mass effect is seen. Impression: 1. Senescent change as described above. No acute diffusion abnormalities are seen. Diagnostic code #2
--- NOTE | 2017-04-26 14:27 | PCM.PN ---
- General Info Date of Service: 04/26/17 Subjective Update: Requires sedation for noninvasive testing; follows direction but unable to initiate independent activity Functional Status: Reports: Pain Controlled, Tolerating Diet, Ambulating, Urinating - Review of Systems General: Reports: No Symptoms HEENT: Reports: No Symptoms Pulmonary: Reports: No Symptoms Cardiovascular: Reports: No Symptoms Gastrointestinal: Reports: No Symptoms Genitourinary: Reports: No Symptoms Musculoskeletal: Reports: No Symptoms Skin: Reports: No Symptoms Neurological: Reports: No Symptoms Psychiatric: Reports: No Symptoms - Patient Data Vitals - Most Recent: Last Vital Signs Temp 36.9 C 04/26/17 07:35 Pulse 75 04/26/17 08:39 Resp 20 04/26/17 07:35 BP 128/87 04/26/17 08:39 Pulse Ox 97 04/26/17 07:35 Weight - Most Recent: 78.335 kg I&O - Last 24 Hours: Intake & Output 04/25/17 04/26/17 04/26/17 22:59 06:59 14:59 Intake Total 300 120 Output Total 100 Balance 200 120 Lab Results Last 24 Hours: Laboratory Results - last 24 hr 04/25/17 04/26/17 04/26/17 Range/Units 22:19 06:15 06:15 WBC 7.90 (3.98-10.04) K/mm3 RBC 3.70 L (3.98-5.22) M/mm3 Hgb 11.7 (11.2-15.7) gm/L Hct 34.2 (34.1-44.9) % MCV 92.4 (79.4-94.8) fl MCH 31.6 (25.6-32.2) pg MCHC 34.2 (32.2-35.5) g/dl RDW Std Deviation 44.4 (36.4-46.3) fL Plt Count 178 L (182-369) K/mm3 MPV 12.1 (9.4-12.3) fl Neut % (Auto) 58.5 (34.0-71.1) % Lymph % (Auto) 32.9 (19.3-51.7) % [place] % (Auto) 7.3 (4.7-12.5) % Eos % (Auto) 1.1 (0.7-5.8) Baso % (Auto) 0.1 (0.1-1.2) % Neut # (Auto) 4.61 (1.56-6.13) K/mm3 Lymph # (Auto) 2.60 (1.18-3.74) K/mm3 [place] # (Auto) 0.58 H (0.24-0.36) K/mm3 Eos # (Auto) 0.09 (0.04-0.36) K/mm3 Baso # (Auto) 0.01 (0.01-0.08) K/mm3 Sodium 142 (136-145) mEq/L Potassium 3.9 (3.5-5.1) mEq/L Chloride 110 H (98-107) mEq/L Carbon Dioxide 25 (21-32) mEq/L Anion Gap 10.9 (5-15) BUN 20 H (7-18) mg/dL Creatinine 1.0 (0.55-1.02) mg/dL Est Cr Clr Drug Dosing 38.75 mL/min Estimated GFR (MDRD) 53 (>60) mL/min BUN/Creatinine Ratio 20.0 H (14-18) Glucose 104 (83-115) mg/dL POC Glucose (83-110) mg/dL Hemoglobin A1c (4.50-6.20) % Calcium 9.4 (8.5-10.1) mg/dL Magnesium 2.0 (1.8-2.4) mg/dl Triglycerides 106 (<150) mg/dL Cholesterol 134 (<200) mg/dL LDL Cholesterol Direct 70 (<100) mg/dL HDL Cholesterol 42.0 (40-59) mg/dL TSH 3rd Generation 0.581 (0.358-3.74) uIU/mL MRSA (PCR) Negative 04/26/17 04/26/17 Range/Units 06:15 07:15 WBC (3.98-10.04) K/mm3 RBC (3.98-5.22) M/mm3 Hgb (11.2-15.7) gm/L Hct (34.1-44.9) % MCV (79.4-94.8) fl MCH (25.6-32.2) pg MCHC (32.2-35.5) g/dl RDW Std Deviation (36.4-46.3) fL Plt Count (182-369) K/mm3 MPV (9.4-12.3) fl Neut % (Auto) (34.0-71.1) % Lymph % (Auto) (19.3-51.7) % [place] % (Auto) (4.7-12.5) % Eos % (Auto) (0.7-5.8) Baso % (Auto) (0.1-1.2) % Neut # (Auto) (1.56-6.13) K/mm3 Lymph # (Auto) (1.18-3.74) K/mm3 [place] # (Auto) (0.24-0.36) K/mm3 Eos # (Auto) (0.04-0.36) K/mm3 Baso # (Auto) (0.01-0.08) K/mm3 Sodium (136-145) mEq/L Potassium (3.5-5.1) mEq/L Chloride (98-107) mEq/L Carbon Dioxide (21-32) mEq/L Anion Gap (5-15) BUN (7-18) mg/dL Creatinine (0.55-1.02) mg/dL Est Cr Clr Drug Dosing mL/min Estimated GFR (MDRD) (>60) mL/min BUN/Creatinine Ratio (14-18) Glucose (83-115) mg/dL POC Glucose 128 H (83-110) mg/dL Hemoglobin A1c 5.30 (4.50-6.20) % Calcium (8.5-10.1) mg/dL Magnesium (1.8-2.4) mg/dl Triglycerides (<150) mg/dL Cholesterol (<200) mg/dL LDL Cholesterol Direct (<100) mg/dL HDL Cholesterol (40-59) mg/dL TSH 3rd Generation (0.358-3.74) uIU/mL MRSA (PCR) Med Orders - Current: Current Medications Acetaminophen (Tylenol) 650 mg PO Q4H PRN PRN Reason: Pain (Mild 1-3)/fever Albuterol/Ipratropium (Duoneb 3.0-0.5 Mg/3 Ml) 3 ml NEB Q4H PRN PRN Reason: Shortness Of Breath/wheezing Artificial Tears (Isopto Tears 0.5% Ophth Soln) 0 ml EYEBOTH QID [facility] Last Admin: 04/26/17 08:40 Dose: 1 drop Betamethasone/Clotrimazole (Lotrisone) 0 gm TOP BID PRN PRN Reason: Rash Bisacodyl (Dulcolax) 5 mg PO DAILY PRN PRN Reason: Constipation Brimonidine Tartrate (Alphagan 0.2% Ophth Soln) 0 ml EYEBOTH BID [facility] Last Admin: 04/26/17 08:40 Dose: 1 drop Colesevelam HCl (Welchol) 1,875 mg PO BID [facility] Last Admin: 04/26/17 08:38 Dose: 1,875 mg Docusate Sodium (Colace) 100 mg PO BID PRN PRN Reason: Constipation Dorzolamide HCl (Trusopt 2% Ophth Soln) 0 ml EYELF BID [facility] Last Admin: 04/26/17 04:06 Dose: Not Given Famotidine (Pepcid) 20 mg PO DAILY [facility] Last Admin: 04/26/17 08:38 Dose: 20 mg Sodium Chloride (Normal Saline) 1,000 mls @ 100 mls/hr IV ASDIRECTED [facility] Last Admin: 04/26/17 08:54 Dose: 100 mls/hr Latanoprost (Xalatan 0.005% Ophth Soln) 0 ml EYEBOTH BEDTIME [facility] Levothyroxine Sodium (Levothyroxine) 150 mcg PO ACBREAKFAST [facility] Last Admin: 04/26/17 06:36 Dose: 150 mcg Memantine (Namenda) 5 mg PO BID [facility] Last Admin: 04/26/17 08:38 Dose: 5 mg Metformin HCl (Glucophage) 500 mg PO BIDMEALS [facility] Last Admin: 04/26/17 06:36 Dose: 500 mg Metoprolol Tartrate (Lopressor) 50 mg PO DAILY [facility] Last Admin: 04/26/17 08:39 Dose: 50 mg Metoprolol Tartrate (Lopressor) 25 mg PO DAILY@2100 [facility] Olanzapine (Zyprexa) 15 mg PO BEDTIME [facility] Ondansetron HCl (Zofran) 4 mg IV Q6H PRN PRN Reason: Nausea/Vomiting Ondansetron HCl (Zofran Odt) 4 mg PO Q6H PRN PRN Reason: nausea, able to take PO Polyethylene Glycol (Miralax) 17 gm PO DAILY PRN PRN Reason: Constipation Senna/Docusate Sodium (Senna Plus) 1 tab PO BID PRN PRN Reason: Constipation Timolol Maleate (Timoptic 0.25% Ophth Soln) 0 ml EYELF BID [facility] Last Admin: 04/26/17 04:06 Dose: Not Given Discontinued Medications Haloperidol Lactate (Haldol) 0.5 mg IVPUSH ONETIME ONE Stop: 04/26/17 09:22 Last Admin: 04/26/17 09:39 Dose: 0.5 mg Lactated Ringer's (Ringers, Lactated) 500 mls @ 999 mls/hr IV .BOLUS ONE Stop: 04/25/17 15:30 Last Admin: 04/25/17 15:24 Dose: 999 mls/hr Magnesium Sulfate 2 gm/ Premix 50 mls @ 25 mls/hr IV ONETIME ONE Stop: 04/25/17 22:58 Last Admin: 04/25/17 21:52 Dose: 25 mls/hr Lorazepam (Ativan) 0.5 mg IVPUSH ONETIME ONE Stop: 04/26/17 09:23 Last Admin: 04/26/17 09:40 Dose: 0.5 mg Metoprolol Tartrate (Lopressor) 50 mg PO BID [facility] Last Admin: 04/25/17 23:59 Dose: 50 mg Non-Formulary Medication (Brimonidine Tartrate) 1 drop EYEBOTH BID [facility] Non-Formulary Medication (Memantine Hcl) 7 mg PO DAILY [facility] - Exam Quality Assessment: DVT Prophylaxis General: Alert, Oriented, Cooperative, No Acute Distress HEENT: Pupils Equal, Pupils Reactive, EOMI Neck: Trachea Midline, No JVD Lungs: Normal Respiratory Effort Cardiovascular: Regular Rate GI/Abdominal Exam: Normal Bowel Sounds, Soft, Non-Tender, No Organomegaly, No Distention (Female) Exam: Deferred Back Exam: Normal Inspection Extremities: Normal Inspection Skin: Warm Neurological: No New Focal Deficit Psy/Mental Status: Alert, Normal Affect, Normal Mood - Problem List Review Problem List Initiated/Reviewed/Updated: Yes - Plan Plan:: I/P: Acute: TIA -shelter staff reports right sided weakness -Ambulance and ED staff report weakness has subsided and returned to baseline -Advanced dementia; able to follow simple commands; difficult to assess -Head CT in ED shows nothing acute; senescent changes noted; this is compared to prior head CT study performed 04/15/17 -Neuro exam in ED and on floor essentially unremarkable -Ambulating well now -12 lead obtained - NSR with rate of 86. Inverted T waves in III, V1. Q waves in III, aVF. 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 is former smoker of 40 years but quit -Follow-up CT recommended in one year (if a smoker) by Dr. Saleh, Radiologist. Chronic: Type II DM - Reportedly SNF checks blood sugar weekly; daily checks ordered; A1C ordered; Continue home meds Glaucoma Dry eye syndrome Chronic constipation HLD HTN GERD Alzheimers disease Dimentia Schizophrenia Hypothyroidism - TSH ordered Obesity Plan: CVA/TIA protocol CM/SW for discharge planning PT/OT DVT prophylaxis: ERIK Giles GI prophylaxis - Pepcid Home medications as ordered Other orders as listed above Routine AM labs HIGH FALL RISK Code status: DNR/DNI. Her daughter is medical POA. Her PCP is Dr. Vaz at [facility] in [place].
[2017-04-26] MEDS ORDERED: Haloperidol Lactate 5 MG/ML SDV IVPUSH PRN (16:47)
[2017-04-26] MEDS: OLANZapine 5 MG Tab PO SCH (20:07)
[2017-04-26] MEDS: Metoprolol Tartrate 25 MG Tab PO SCH (20:16)
[2017-04-26] MEDS: Latanoprost 0.005% Ophth Soln 2.5 ML Bottle EYEBOTH SCH (22:36)
[2017-04-27] MEDS: LORazepam 2 MG/ML MDV IVPUSH PRN (00:21)
[2017-04-27] MEDS: metFORMIN 500 MG Tab PO SCH ×2 (07:24→18:11)
[2017-04-27] MEDS: Levothyroxine 150 MCG Tab PO SCH (07:24)
[2017-04-27] MEDS: Colesevelam 625 MG Tab PO SCH ×3 (10:50→22:20)
[2017-04-27] MEDS: Metoprolol Tartrate 50 MG Tab PO SCH (10:50)
[2017-04-27] MEDS: Famotidine 20 MG Tab PO SCH (10:51)
[2017-04-27] MEDS: Memantine 10 MG Tab PO SCH ×2 (10:52→22:19)
[2017-04-27] MEDS: Hypromellose 0.5% Ophth Soln 15 ML Bottle EYEBOTH SCH ×5 (10:52→22:10)
[2017-04-27] MEDS: DORZOLAMIDE 2% EYELF SCH ×2 (10:54→22:00)
[2017-04-27] MEDS: Timolol Maleate 0.25% Ophth Soln 5 ML Bottle EYELF SCH (10:54)
[2017-04-27] MEDS: Brimonidine 0.2% Ophth Soln 5 ML Bottle EYEBOTH SCH ×3 (10:55→22:15)
[2017-04-27] MEDS: Sodium Chloride 0.9% 1,000 ML IV SCH (13:00)
--- NOTE | 2017-04-27 13:17 | PCM.PN ---
- General Info Date of Service: 04/27/17 Functional Status: Reports: Tolerating Diet, Ambulating, Urinating - Review of Systems General: Reports: No Symptoms HEENT: Reports: No Symptoms Pulmonary: Reports: No Symptoms Cardiovascular: Reports: No Symptoms Gastrointestinal: Reports: No Symptoms Genitourinary: Reports: No Symptoms Musculoskeletal: Reports: No Symptoms Skin: Reports: No Symptoms Neurological: Reports: No Symptoms Psychiatric: Reports: No Symptoms - Patient Data Vitals - Most Recent: Last Vital Signs Temp 36.2 C 04/27/17 07:19 Pulse 72 04/27/17 10:50 Resp 20 04/27/17 07:19 BP 116/57 L 04/27/17 10:50 Pulse Ox 100 04/27/17 07:16 Weight - Most Recent: 78.335 kg I&O - Last 24 Hours: Intake & Output 04/26/17 04/27/17 04/27/17 22:59 06:59 14:59 Intake Total 250 1160 120 Output Total 500 Balance -250 1160 120 Lab Results Last 24 Hours: Laboratory Results - last 24 hr 04/26/17 04/27/17 04/27/17 Range/Units 06:15 07:00 07:00 WBC 6.51 (3.98-10.04) K/mm3 RBC 3.77 L (3.98-5.22) M/mm3 Hgb 11.9 (11.2-15.7) gm/L Hct 34.7 (34.1-44.9) % MCV 92.0 (79.4-94.8) fl MCH 31.6 (25.6-32.2) pg MCHC 34.3 (32.2-35.5) g/dl RDW Std Deviation 45.3 (36.4-46.3) fL Plt Count 169 L (182-369) K/mm3 MPV 12.1 (9.4-12.3) fl Neut % (Auto) 48.9 (34.0-71.1) % Lymph % (Auto) 39.8 (19.3-51.7) % [place] % (Auto) 8.6 (4.7-12.5) % Eos % (Auto) 2.2 (0.7-5.8) Baso % (Auto) 0.3 (0.1-1.2) % Neut # (Auto) 3.19 (1.56-6.13) K/mm3 Lymph # (Auto) 2.59 (1.18-3.74) K/mm3 [place] # (Auto) 0.56 H (0.24-0.36) K/mm3 Eos # (Auto) 0.14 (0.04-0.36) K/mm3 Baso # (Auto) 0.02 (0.01-0.08) K/mm3 Sodium 143 (136-145) mEq/L Potassium 3.6 (3.5-5.1) mEq/L Chloride 111 H (98-107) mEq/L Carbon Dioxide 24 (21-32) mEq/L Anion Gap 11.6 (5-15) BUN 15 (7-18) mg/dL Creatinine 1.0 (0.55-1.02) mg/dL Est Cr Clr Drug Dosing 38.75 mL/min Estimated GFR (MDRD) 53 (>60) mL/min BUN/Creatinine Ratio 15.0 (14-18) Glucose 88 (83-115) mg/dL Calcium 8.8 (8.5-10.1) mg/dL Magnesium 1.7 L (1.8-2.4) mg/dl C-Reactive Protein (<1.0) mg/dL Mycoplasma pneumon IgM Negative (NEGATIVE) 04/27/17 Range/Units 07:00 WBC (3.98-10.04) K/mm3 RBC (3.98-5.22) M/mm3 Hgb (11.2-15.7) gm/L Hct (34.1-44.9) % MCV (79.4-94.8) fl MCH (25.6-32.2) pg MCHC (32.2-35.5) g/dl RDW Std Deviation (36.4-46.3) fL Plt Count (182-369) K/mm3 MPV (9.4-12.3) fl Neut % (Auto) (34.0-71.1) % Lymph % (Auto) (19.3-51.7) % [place] % (Auto) (4.7-12.5) % Eos % (Auto) (0.7-5.8) Baso % (Auto) (0.1-1.2) % Neut # (Auto) (1.56-6.13) K/mm3 Lymph # (Auto) (1.18-3.74) K/mm3 [place] # (Auto) (0.24-0.36) K/mm3 Eos # (Auto) (0.04-0.36) K/mm3 Baso # (Auto) (0.01-0.08) K/mm3 Sodium (136-145) mEq/L Potassium (3.5-5.1) mEq/L Chloride (98-107) mEq/L Carbon Dioxide (21-32) mEq/L Anion Gap (5-15) BUN (7-18) mg/dL Creatinine (0.55-1.02) mg/dL Est Cr Clr Drug Dosing mL/min Estimated GFR (MDRD) (>60) mL/min BUN/Creatinine Ratio (14-18) Glucose (83-115) mg/dL Calcium (8.5-10.1) mg/dL Magnesium (1.8-2.4) mg/dl C-Reactive Protein < 0.2 (<1.0) mg/dL Mycoplasma pneumon IgM (NEGATIVE) Med Orders - Current: Current Medications Acetaminophen (Tylenol) 650 mg PO Q4H PRN PRN Reason: Pain (Mild 1-3)/fever Albuterol/Ipratropium (Duoneb 3.0-0.5 Mg/3 Ml) 3 ml NEB Q4H PRN PRN Reason: Shortness Of Breath/wheezing Artificial Tears (Isopto Tears 0.5% Ophth Soln) 0 ml EYEBOTH QID [facility] Last Admin: 04/27/17 12:23 Dose: Not Given Betamethasone/Clotrimazole (Lotrisone) 0 gm TOP BID PRN PRN Reason: Rash Bisacodyl (Dulcolax) 5 mg PO DAILY PRN PRN Reason: Constipation Brimonidine Tartrate (Alphagan 0.2% Ophth Soln) 0 ml EYEBOTH BID [facility] Last Admin: 04/27/17 12:23 Dose: Not Given Colesevelam HCl (Welchol) 1,875 mg PO BID [facility] Last Admin: 04/27/17 12:22 Dose: Not Given Docusate Sodium (Colace) 100 mg PO BID PRN PRN Reason: Constipation Dorzolamide HCl (Trusopt 2% Ophth Soln) 0 ml EYELF BID [facility] Last Admin: 04/27/17 10:54 Dose: Not Given Famotidine (Pepcid) 20 mg PO DAILY [facility] Last Admin: 04/27/17 10:51 Dose: 20 mg Haloperidol Lactate (Haldol) 0.5 mg IVPUSH Q8H PRN PRN Reason: restlessness Sodium Chloride (Normal Saline) 1,000 mls @ 75 mls/hr IV ASDIRECTED [facility] Last Admin: 04/27/17 13:00 Dose: 100 mls/hr Latanoprost (Xalatan 0.005% Ophth Soln) 0 ml EYEBOTH BEDTIME [facility] Last Admin: 04/26/17 22:36 Dose: 1 drop Levothyroxine Sodium (Levothyroxine) 150 mcg PO ACBREAKFAST [facility] Last Admin: 04/27/17 07:24 Dose: Not Given Lorazepam (Ativan) 0.5 mg IVPUSH Q8H PRN PRN Reason: Anxiety Last Admin: 04/27/17 00:21 Dose: 0.5 mg Memantine (Namenda) 5 mg PO BID [facility] Last Admin: 04/27/17 10:52 Dose: 5 mg Metformin HCl (Glucophage) 500 mg PO BIDMEALS [facility] Last Admin: 04/27/17 07:24 Dose: Not Given Metoprolol Tartrate (Lopressor) 50 mg PO DAILY [facility] Last Admin: 04/27/17 10:50 Dose: 50 mg Metoprolol Tartrate (Lopressor) 25 mg PO DAILY@2100 [facility] Last Admin: 04/26/17 20:16 Dose: 25 mg Olanzapine (Zyprexa) 15 mg PO BEDTIME [facility] Last Admin: 04/26/17 20:07 Dose: 15 mg Ondansetron HCl (Zofran) 4 mg IV Q6H PRN PRN Reason: Nausea/Vomiting Polyethylene Glycol (Miralax) 17 gm PO DAILY PRN PRN Reason: Constipation Senna/Docusate Sodium (Senna Plus) 1 tab PO BID PRN PRN Reason: Constipation Timolol Maleate (Timoptic 0.25% Ophth Soln) 0 ml EYELF BID [facility] Last Admin: 04/27/17 10:54 Dose: Not Given Discontinued Medications Haloperidol Lactate (Haldol) 0.5 mg IVPUSH ONETIME ONE Stop: 04/26/17 09:22 Last Admin: 04/26/17 09:39 Dose: 0.5 mg Haloperidol Lactate (Haldol) 0.5 mg IVPUSH ONETIME ONE Stop: 04/26/17 14:33 Last Admin: 04/26/17 14:38 Dose: 0.5 mg Lactated Ringer's (Ringers, Lactated) 500 mls @ 999 mls/hr IV .BOLUS ONE Stop: 04/25/17 15:30 Last Admin: 04/25/17 15:24 Dose: 999 mls/hr Magnesium Sulfate 2 gm/ Premix 50 mls @ 25 mls/hr IV ONETIME ONE Stop: 04/25/17 22:58 Last Admin: 04/25/17 21:52 Dose: 25 mls/hr Lorazepam (Ativan) 0.5 mg IVPUSH ONETIME ONE Stop: 04/26/17 09:23 Last Admin: 04/26/17 09:40 Dose: 0.5 mg Lorazepam (Ativan) 0.5 mg IVPUSH ONETIME ONE Stop: 04/26/17 14:32 Last Admin: 04/26/17 14:38 Dose: 0.5 mg Metoprolol Tartrate (Lopressor) 50 mg PO BID [facility] Last Admin: 04/25/17 23:59 Dose: 50 mg Non-Formulary Medication (Brimonidine Tartrate) 1 drop EYEBOTH BID [facility] Non-Formulary Medication (Memantine Hcl) 7 mg PO DAILY [facility] Ondansetron HCl (Zofran Odt) 4 mg PO Q6H PRN PRN Reason: nausea, able to take PO - Exam Quality Assessment: DVT Prophylaxis General: Alert, Oriented, No Acute Distress HEENT: Pupils Equal, Pupils Reactive, EOMI Neck: Supple, Trachea Midline Lungs: Normal Respiratory Effort Cardiovascular: Regular Rate GI/Abdominal Exam: Normal Bowel Sounds, Soft, Non-Tender, No Organomegaly, No Distention (Female) Exam: Deferred Back Exam: Normal Inspection Extremities: Normal Inspection, Pedal Edema Skin: Warm Neurological: No New Focal Deficit, Normal Speech Psy/Mental Status: Alert, Normal Affect, Normal Mood - Problem List Review Problem List Initiated/Reviewed/Updated: Yes - My Orders Last 24 Hours: My Active Orders 04/26/17 16:23 RESPIRATORY PANEL BY PCR [MREF] Routine 04/26/17 16:47 Haloperidol Lactate [Haldol] 0.5 mg IVPUSH Q8H PRN 04/26/17 16:48 LORazepam [Ativan] 0.5 mg IVPUSH Q8H PRN 04/26/17 18:00 STREP PNEUMONIAE ANTIGEN [MREF] Routine 04/26/17 Dinner National Dysphagia Diet [DIET] 04/28/17 05:00 CRP [C-REACTIVE PROTEIN] [CHEM] DAILY 04/29/17 05:00 CRP [C-REACTIVE PROTEIN] [CHEM] DAILY 04/30/17 05:00 CRP [C-REACTIVE PROTEIN] [CHEM] DAILY - Plan Plan:: I/P: Acute: TIA -snf staff reports right sided weakness -Ambulance and ED staff report weakness has subsided and returned to baseline -Advanced dementia; able to follow simple commands; difficult to assess -Neuro exam in ED and on floor essentially unremarkable -Ambulating well now -12 lead obtained - NSR with rate of 86. Inverted T waves in III, V1. Q waves in III, aVF. 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 is former smoker of 40 years but quit -Follow-up CT recommended in one year (if a smoker) by Dr. Saleh, Radiologist. Chronic: Type II DM - Reportedly SNF checks blood sugar weekly; daily checks ordered; A1C ordered; Continue home meds Glaucoma Dry eye syndrome Chronic constipation HLD HTN GERD Alzheimers disease Dimentia Schizophrenia Hypothyroidism - TSH ordered Obesity Plan: CVA/TIA protocol CM/SW for discharge planning PT/OT DVT prophylaxis: ERIK Giles GI prophylaxis - Pepcid Home medications as ordered Other orders as listed above Routine AM labs HIGH FALL RISK \ Code status: DNR/DNI. Her daughter is medical POA. Her PCP is Dr. Vaz at [facility] here in [place].
[2017-04-27] MEDS ORDERED: Magnesium Sulfate/Water 2 GM in Premix Bag 1 BAG IV ONE (17:40)
[2017-04-27] MEDS: TIMOLOL MALEATE 0.5% EYELF SCH (22:05)
[2017-04-27] MEDS: Metoprolol Tartrate 25 MG Tab PO SCH (22:19)
[2017-04-27] MEDS: OLANZapine 5 MG Tab PO SCH (22:20)
[2017-04-27] MEDS: Latanoprost 0.005% Ophth Soln 2.5 ML Bottle EYEBOTH SCH (22:21)
[2017-04-28] MEDS ORDERED: Bisacodyl 10 MG Supp RECTAL ONE (04:20)
[2017-04-28] MEDS: Levothyroxine 150 MCG Tab PO SCH (05:54)
[2017-04-28] MEDS: metFORMIN 500 MG Tab PO SCH (06:19)
--- NOTE | 2017-04-28 06:56 | PCM.DCSUM1 ---
Discharge Summary - Discharge Data Discharge Date: 04/28/17 (Admit Date: 04/25/17) Discharge Disposition: DC/Tfer to SNF 03 Condition: Good - Discharge Diagnosis/Problem(s) (1) TIA (transient ischemic attack) SNOMED Code(s): 913637368 ICD Code: G45.9 - TRANSIENT CEREBRAL ISCHEMIC ATTACK, UNSPECIFIED Status: Acute Priority: High Current Visit: Yes Qualifiers: Transient cerebral ischemia type: unspecified Qualified Code(s): G45.9 - Transient cerebral ischemic attack, unspecified (2) Hypomagnesemia SNOMED Code(s): 110842347 ICD Code: E83.42 - HYPOMAGNESEMIA Status: Resolved Priority: High Current Visit: Yes (3) Failure to thrive SNOMED Code(s): 14441662 ICD Code: BAT1082 - Status: Acute Priority: High Current Visit: Yes Qualifiers: Failure to thrive age range: in adult Qualified Code(s): R62.7 - Adult failure to thrive (4) Alzheimer disease SNOMED Code(s): 54465439 ICD Code: G30.9 - ALZHEIMER'S DISEASE, UNSPECIFIED Status: Chronic Priority: High Current Visit: Yes Qualifiers: Alzheimer's disease onset: late-onset Dementia behavioral disturbance: with behavioral disturbance Qualified Code(s): G30.1 - Alzheimer's disease with late onset; F02.81 - Dementia in other diseases classified elsewhere with behavioral disturbance (5) Confusion SNOMED Code(s): 429604127 ICD Code: R41.0 - DISORIENTATION, UNSPECIFIED Status: Chronic Priority: High Current Visit: Yes (6) Hypothyroidism SNOMED Code(s): 46697230 ICD Code: E03.9 - HYPOTHYROIDISM, UNSPECIFIED Status: Chronic Priority: Low Current Visit: No Qualifiers: Hypothyroidism type: unspecified Qualified Code(s): E03.9 - Hypothyroidism , unspecified (7) Lung nodule < 6cm on CT SNOMED Code(s): 849904869 ICD Code: R91.1 - SOLITARY PULMONARY NODULE Status: Chronic Priority: Low Current Visit: Yes (8) Type II diabetes mellitus SNOMED Code(s): 10996288 ICD Code: E11.9 - TYPE 2 DIABETES MELLITUS WITHOUT COMPLICATIONS Status: Chronic Priority: Low Current Visit: Yes Qualifiers: Diabetes mellitus complication status: with unspecified complications Diabetes mellitus [facility] insulin use: without [facility] use Qualified Code( s): E11.8 - Type 2 diabetes mellitus with unspecified complications - Patient Summary/Data Consults: Consultations 04/25/17 20:10 Consult to Case Management [CONS] Routine Consult to Field Reporter [CONS] Routine OT Evaluation and Treatment [CONS] Routine PT Evaluation and Treatment [CONS] Routine EVENT SET UP SPECIALIST Evaluation and Treatment [CONS] Routine - Patient Instructions Diet: Heart Healthy Diet, Diabetic Diet Activity: As Tolerated Driving: Do Not Drive Showering/Bathing: May Shower Notify Provider of: Fever, Increased Pain, Nausea and/or Vomiting (Stroke signs/ symptoms. ) - Discharge Plan Home Medications: Home Meds Calcium Carbonate [Tums] 200 mg PO DAILY PRN 01/01/17 [History] Levothyroxine 150 mcg PO ACBREAKFAST 01/01/17 [History] Sennosides [Senna] 8.6 mg PO DAILY PRN 01/01/17 [History] Bisacodyl [Dulcolax] 10 mg RECTAL ASDIRECTED PRN 01/31/17 [History] Brimonidine Tartrate [Alphagan P 0.1% Ophth Soln] 1 drop EYEBOTH BID 01/31/17 [ History] [place]/Min Oil/Denae/Wool Alcoh [Eucerin Creme] 1 applic EARBOTH BID PRN [History] Colesevelam [Welchol] 3 tab PO BID 01/31/17 [History] Dextran 70/Hypromellose [Artificial Tears] 1 drop EYEBOTH QID 01/31/17 [History] Dorzolamide [Trusopt 2% Ophth Soln] 1 drop EYELF BID 01/31/17 [History] Latanoprost [Xalatan 0.005% Ophth Soln] 1 drop EYEBOTH BEDTIME 01/31/17 [History ] Metoprolol Tartrate [Lopressor] 50 mg PO BID 01/31/17 [History] OLANZapine [Olanzapine] 15 mg PO BEDTIME 01/31/17 [History] guaiFENesin/Dextromethorphan [Safetussin DM] 10 ml PO Q4H PRN 01/31/17 [History] metFORMIN [Glucophage] 500 mg PO BID 01/31/17 [History] Betamethasone/Clotrimazole [Lotrisone] 1 appful TOP BID PRN 02/10/17 [History] Memantine HCl [Namenda XR] 7 mg PO DAILY 02/10/17 [History] Acetaminophen [Tylenol] 650 mg PO Q6H PRN 04/15/17 [History] Na Phos,M-B/Na Phos,Di-Ba [Fleet Enema] 30 ml RECTAL Q3D PRN 04/15/17 [History] Polyethylene Glycol 3350 [Miralax] 17 gr PO DAILY 04/15/17 [History] Timolol Maleate/PF [Timoptic 0.5% Ocudose Drop] 1 drop EYELF BID 04/27/17 [ History] Patient Handouts: Transient Ischemic Attack, [id number], Pulmonary Nodule, [id number] Forms: ED Department Discharge Referrals: Anuj Vaz MD [Primary Care Provider] - - Discharge Summary/Plan Comment DC Time >30 min.: Yes (45 min) - Patient Data Vitals - Most Recent: Last Vital Signs Temp 97.0 F 04/27/17 23:26 Pulse 49 L 04/27/17 23:26 Resp 19 04/27/17 23:26 BP 125/49 L 04/27/17 23:26 Pulse Ox 97 04/27/17 23:26 Weight - Most Recent: 173 lb 12.8 oz I&O - Last 24 hours: Intake & Output 04/27/17 04/27/17 04/28/17 14:59 22:59 06:59 Intake Total 120 1450 999 Balance 120 1450 999 Lab Results - Last 24 hrs: Laboratory Results - last 24 hr 04/27/17 04/27/17 04/27/17 Range/Units 07:00 07:00 07:00 WBC 6.51 (3.98-10.04) K/mm3 RBC 3.77 L (3.98-5.22) M/mm3 Hgb 11.9 (11.2-15.7) gm/L Hct 34.7 (34.1-44.9) % MCV 92.0 (79.4-94.8) fl MCH 31.6 (25.6-32.2) pg MCHC 34.3 (32.2-35.5) g/dl RDW Std Deviation 45.3 (36.4-46.3) fL Plt Count 169 L (182-369) K/mm3 MPV 12.1 (9.4-12.3) fl Neut % (Auto) 48.9 (34.0-71.1) % Lymph % (Auto) 39.8 (19.3-51.7) % [place] % (Auto) 8.6 (4.7-12.5) % Eos % (Auto) 2.2 (0.7-5.8) Baso % (Auto) 0.3 (0.1-1.2) % Neut # (Auto) 3.19 (1.56-6.13) K/mm3 Lymph # (Auto) 2.59 (1.18-3.74) K/mm3 [place] # (Auto) 0.56 H (0.24-0.36) K/mm3 Eos # (Auto) 0.14 (0.04-0.36) K/mm3 Baso # (Auto) 0.02 (0.01-0.08) K/mm3 Sodium 143 (136-145) mEq/L Potassium 3.6 (3.5-5.1) mEq/L Chloride 111 H (98-107) mEq/L Carbon Dioxide 24 (21-32) mEq/L Anion Gap 11.6 (5-15) BUN 15 (7-18) mg/dL Creatinine 1.0 (0.55-1.02) mg/dL Est Cr Clr Drug Dosing 38.75 mL/min Estimated GFR (MDRD) 53 (>60) mL/min BUN/Creatinine Ratio 15.0 (14-18) Glucose 88 (83-115) mg/dL Calcium 8.8 (8.5-10.1) mg/dL Magnesium 1.7 L (1.8-2.4) mg/dl C-Reactive Protein < 0.2 (<1.0) mg/dL Med Orders - Current: Current Medications Acetaminophen (Tylenol) 650 mg PO Q4H PRN PRN Reason: Pain (Mild 1-3)/fever Albuterol/Ipratropium (Duoneb 3.0-0.5 Mg/3 Ml) 3 ml NEB Q4H PRN PRN Reason: Shortness Of Breath/wheezing Artificial Tears (Isopto Tears 0.5% Ophth Soln) 0 ml EYEBOTH QID [facility] Last Admin: 04/27/17 22:10 Dose: 1 drop Betamethasone/Clotrimazole (Lotrisone) 0 gm TOP BID PRN PRN Reason: Rash Bisacodyl (Dulcolax) 5 mg PO DAILY PRN PRN Reason: Constipation Brimonidine Tartrate (Alphagan 0.2% Ophth Soln) 0 ml EYEBOTH BID [facility] Last Admin: 04/27/17 22:15 Dose: 1 drop Colesevelam HCl (Welchol) 1,875 mg PO BID [facility] Last Admin: 04/27/17 22:20 Dose: Not Given Docusate Sodium (Colace) 100 mg PO BID PRN PRN Reason: Constipation Dorzolamide HCl (Trusopt 2% Ophth Soln) 0 ml EYELF BID [facility] Last Admin: 04/27/17 22:00 Dose: 1 drop Famotidine (Pepcid) 20 mg PO DAILY [facility] Last Admin: 04/27/17 10:51 Dose: 20 mg Haloperidol Lactate (Haldol) 0.5 mg IVPUSH Q8H PRN PRN Reason: restlessness Sodium Chloride (Normal Saline) 1,000 mls @ 75 mls/hr IV ASDIRECTED [facility] Last Admin: 04/27/17 13:00 Dose: 100 mls/hr Latanoprost (Xalatan 0.005% Ophth Soln) 0 ml EYEBOTH BEDTIME [facility] Last Admin: 04/27/17 22:21 Dose: 1 drop Levothyroxine Sodium (Levothyroxine) 150 mcg PO ACBREAKFAST [facility] Last Admin: 04/28/17 05:54 Dose: Not Given Lorazepam (Ativan) 0.5 mg IVPUSH Q8H PRN PRN Reason: Anxiety Last Admin: 04/27/17 00:21 Dose: 0.5 mg Memantine (Namenda) 5 mg PO BID [facility] Last Admin: 04/27/17 22:19 Dose: Not Given Metformin HCl (Glucophage) 500 mg PO BIDMEALS [facility] Last Admin: 04/28/17 06:19 Dose: Not Given Metoprolol Tartrate (Lopressor) 50 mg PO DAILY [facility] Last Admin: 04/27/17 10:50 Dose: 50 mg Metoprolol Tartrate (Lopressor) 25 mg PO DAILY@2100 [facility] Last Admin: 04/27/17 22:19 Dose: Not Given Timolol Maleate ( Timoptic) 0.5% Ophth Solution Own Med* * 0 drop EYELF BID [facility] Last Admin: 04/27/17 22:05 Dose: 1 drop Olanzapine (Zyprexa) 15 mg PO BEDTIME [facility] Last Admin: 04/27/17 22:20 Dose: Not Given Ondansetron HCl (Zofran) 4 mg IV Q6H PRN PRN Reason: Nausea/Vomiting Polyethylene Glycol (Miralax) 17 gm PO DAILY PRN PRN Reason: Constipation Senna/Docusate Sodium (Senna Plus) 1 tab PO BID PRN PRN Reason: Constipation Discontinued Medications Bisacodyl (Dulcolax) 10 mg RECTAL ONETIME ONE Stop: 04/28/17 04:21 Last Admin: 04/28/17 05:54 Dose: 10 mg Haloperidol Lactate (Haldol) 0.5 mg IVPUSH ONETIME ONE Stop: 04/26/17 09:22 Last Admin: 04/26/17 09:39 Dose: 0.5 mg Haloperidol Lactate (Haldol) 0.5 mg IVPUSH ONETIME ONE Stop: 04/26/17 14:33 Last Admin: 04/26/17 14:38 Dose: 0.5 mg Lactated Ringer's (Ringers, Lactated) 500 mls @ 999 mls/hr IV .BOLUS ONE Stop: 04/25/17 15:30 Last Admin: 04/25/17 15:24 Dose: 999 mls/hr Magnesium Sulfate 2 gm/ Premix 50 mls @ 25 mls/hr IV ONETIME ONE Stop: 04/25/17 22:58 Last Admin: 04/25/17 21:52 Dose: 25 mls/hr Magnesium Sulfate 2 gm/ Premix 50 mls @ 25 mls/hr IV ONETIME ONE Stop: 04/27/17 19:39 Last Admin: 04/27/17 18:11 Dose: 25 mls/hr Lorazepam (Ativan) 0.5 mg IVPUSH ONETIME ONE Stop: 04/26/17 09:23 Last Admin: 04/26/17 09:40 Dose: 0.5 mg Lorazepam (Ativan) 0.5 mg IVPUSH ONETIME ONE Stop: 04/26/17 14:32 Last Admin: 04/26/17 14:38 Dose: 0.5 mg Metoprolol Tartrate (Lopressor) 50 mg PO BID [facility] Last Admin: 04/25/17 23:59 Dose: 50 mg Non-Formulary Medication (Brimonidine Tartrate) 1 drop EYEBOTH BID [facility] Non-Formulary Medication (Memantine Hcl) 7 mg PO DAILY [facility] Ondansetron HCl (Zofran Odt) 4 mg PO Q6H PRN PRN Reason: nausea, able to take PO Timolol Maleate (Timoptic 0.25% Ophth Soln) 0 ml EYELF BID [facility] Last Admin: 04/27/17 10:54 Dose: Not Given *Q Meaningful Use (DIS) - VTE *Q VTE Criteria *Q: - Stroke *Q Stroke Criteria *Q: - AMI *Q AMI Criteria *Q:
[2017-04-28] MEDS: Sodium Chloride 0.9% 1,000 ML IV SCH (07:57)
[2017-04-28] MEDS: LORazepam 2 MG/ML MDV IVPUSH PRN (08:49)
--- NOTE | 2017-04-28 09:29 | PCM.DCSUM1 ---
Discharge Summary - Hospital Course Free Text/Narrative:: Ragini Murillo is a 82 yo female who presented via ambulance from [place], where she lives in the longterm there. She had worsening weakness over the past several weeks. She was seen on the of this month after falls and weakness and had a very extensive workup including lab work and head CT, which was essentially unremarkable. She was evaluated as a TIA, a CVA work up was performed; see reports. The exam as well as imaging was non focal. SP, PT/OT were all preformed; her diet was adjusted as needed based on her swallow evaluation. She was discharged back to the SNF. Primary Dx AMS with baseline advanced dementia TIA Failure to Thrive 3mm lung nodule in non smoker Condition Stable Disposition SNF Diet Resume usual diet New Meds ASA 81 mg daily Zocor 5 mg daily - Discharge Data Discharge Date: 04/28/17 Discharge Disposition: DC/Tfer to SNF 03 Condition: Good - Patient Summary/Data Consults: Consultations 04/25/17 20:10 Consult to Case Management [CONS] Routine Consult to Drug Abuse Worker [CONS] Routine OT Evaluation and Treatment [CONS] Routine PT Evaluation and Treatment [CONS] Routine NUTRITION TECHNICIAN Evaluation and Treatment [CONS] Routine - Patient Instructions Diet: Usual Diet as Tolerated Activity: As Tolerated Driving: Do Not Drive Showering/Bathing: May Shower Notify Provider of: Nausea and/or Vomiting - Discharge Plan Home Medications: Home Meds Calcium Carbonate [Tums] 200 mg PO DAILY PRN 01/01/17 [History] Levothyroxine 150 mcg PO ACBREAKFAST 01/01/17 [History] Sennosides [Senna] 8.6 mg PO DAILY PRN 01/01/17 [History] Bisacodyl [Dulcolax] 10 mg RECTAL ASDIRECTED PRN 01/31/17 [History] Brimonidine Tartrate [Alphagan P 0.1% Ophth Soln] 1 drop EYEBOTH BID 01/31/17 [ History] [place]/Min Oil/Denae/Wool Alcoh [Eucerin Creme] 1 applic EARBOTH BID PRN [History] Colesevelam [Welchol] 3 tab PO BID 01/31/17 [History] Dextran 70/Hypromellose [Artificial Tears] 1 drop EYEBOTH QID 01/31/17 [History] Dorzolamide [Trusopt 2% Ophth Soln] 1 drop EYELF BID 01/31/17 [History] Latanoprost [Xalatan 0.005% Ophth Soln] 1 drop EYEBOTH BEDTIME 01/31/17 [History ] Metoprolol Tartrate [Lopressor] 50 mg PO BID 01/31/17 [History] OLANZapine [Olanzapine] 15 mg PO BEDTIME 01/31/17 [History] guaiFENesin/Dextromethorphan [Safetussin DM] 10 ml PO Q4H PRN 01/31/17 [History] metFORMIN [Glucophage] 500 mg PO BID 01/31/17 [History] Betamethasone/Clotrimazole [Lotrisone] 1 appful TOP BID PRN 02/10/17 [History] Memantine HCl [Namenda XR] 7 mg PO DAILY 02/10/17 [History] Acetaminophen [Tylenol] 650 mg PO Q6H PRN 04/15/17 [History] Na Phos,M-B/Na Phos,Di-Ba [Fleet Enema] 30 ml RECTAL Q3D PRN 04/15/17 [History] Polyethylene Glycol 3350 [Miralax] 17 gr PO DAILY 04/15/17 [History] Timolol Maleate/PF [Timoptic 0.5% Ocudose Drop] 1 drop EYELF BID 04/27/17 [ History] Patient Handouts: Transient Ischemic Attack, [id number], Pulmonary Nodule, [id number] Forms: ED Department Discharge Referrals: Anuj Vaz MD [Primary Care Provider] - - Discharge Summary/Plan Comment DC Time >30 min.: No - General Info Date of Service: 04/25/17 Functional Status: Reports: Tolerating Diet, Ambulating, Urinating - Review of Systems General: Reports: No Symptoms HEENT: Reports: No Symptoms Pulmonary: Reports: No Symptoms Cardiovascular: Reports: No Symptoms Gastrointestinal: Reports: No Symptoms Genitourinary: Reports: No Symptoms Musculoskeletal: Reports: No Symptoms Skin: Reports: No Symptoms Neurological: Reports: No Symptoms Psychiatric: Reports: No Symptoms - Patient Data Vitals - Most Recent: Last Vital Signs Temp 36.1 C 04/27/17 23:26 Pulse 49 L 04/27/17 23:26 Resp 19 04/27/17 23:26 BP 125/49 L 04/27/17 23:26 Pulse Ox 97 04/27/17 23:26 Weight - Most Recent: 78.834 kg I&O - Last 24 hours: Intake & Output 04/27/17 04/28/17 04/28/17 22:59 06:59 14:59 Intake Total 1450 999 Balance 1450 999 Lab Results - Last 24 hrs: Laboratory Results - last 24 hr 04/28/17 04/28/17 04/28/17 Range/Units 06:50 06:50 06:50 WBC 6.61 (3.98-10.04) K/mm3 RBC 4.09 (3.98-5.22) M/mm3 Hgb 12.7 (11.2-15.7) gm/L Hct 37.2 (34.1-44.9) % MCV 91.0 (79.4-94.8) fl MCH 31.1 (25.6-32.2) pg MCHC 34.1 (32.2-35.5) g/dl RDW Std Deviation 45.5 (36.4-46.3) fL Plt Count 138 L (182-369) K/mm3 MPV 12.6 H (9.4-12.3) fl Neut % (Auto) 50.7 (34.0-71.1) % Lymph % (Auto) 38.1 (19.3-51.7) % [place] % (Auto) 8.8 (4.7-12.5) % Eos % (Auto) 2.0 (0.7-5.8) Baso % (Auto) 0.2 (0.1-1.2) % Neut # (Auto) 3.36 (1.56-6.13) K/mm3 Lymph # (Auto) 2.52 (1.18-3.74) K/mm3 [place] # (Auto) 0.58 H (0.24-0.36) K/mm3 Eos # (Auto) 0.13 (0.04-0.36) K/mm3 Baso # (Auto) 0.01 (0.01-0.08) K/mm3 Sodium 143 (136-145) mEq/L Potassium 3.8 (3.5-5.1) mEq/L Chloride 110 H (98-107) mEq/L Carbon Dioxide 21 (21-32) mEq/L Anion Gap 15.8 H (5-15) BUN 14 (7-18) mg/dL Creatinine 1.0 (0.55-1.02) mg/dL Est Cr Clr Drug Dosing 38.75 mL/min Estimated GFR (MDRD) 53 (>60) mL/min BUN/Creatinine Ratio 14.0 (14-18) Glucose 74 L (83-115) mg/dL Calcium 9.0 (8.5-10.1) mg/dL Magnesium 2.1 (1.8-2.4) mg/dl C-Reactive Protein < 0.2 (<1.0) mg/dL Med Orders - Current: Current Medications Acetaminophen (Tylenol) 650 mg PO Q4H PRN PRN Reason: Pain (Mild 1-3)/fever Albuterol/Ipratropium (Duoneb 3.0-0.5 Mg/3 Ml) 3 ml NEB Q4H PRN PRN Reason: Shortness Of Breath/wheezing Artificial Tears (Isopto Tears 0.5% Ophth Soln) 0 ml EYEBOTH QID [facility] Last Admin: 04/27/17 22:10 Dose: 1 drop Betamethasone/Clotrimazole (Lotrisone) 0 gm TOP BID PRN PRN Reason: Rash Bisacodyl (Dulcolax) 5 mg PO DAILY PRN PRN Reason: Constipation Brimonidine Tartrate (Alphagan 0.2% Ophth Soln) 0 ml EYEBOTH BID [facility] Last Admin: 04/27/17 22:15 Dose: 1 drop Colesevelam HCl (Welchol) 1,875 mg PO BID [facility] Last Admin: 04/27/17 22:20 Dose: Not Given Docusate Sodium (Colace) 100 mg PO BID PRN PRN Reason: Constipation Dorzolamide HCl (Trusopt 2% Ophth Soln) 0 ml EYELF BID [facility] Last Admin: 04/27/17 22:00 Dose: 1 drop Famotidine (Pepcid) 20 mg PO DAILY [facility] Last Admin: 04/27/17 10:51 Dose: 20 mg Haloperidol Lactate (Haldol) 0.5 mg IVPUSH Q8H PRN PRN Reason: restlessness Sodium Chloride (Normal Saline) 1,000 mls @ 75 mls/hr IV ASDIRECTED [facility] Last Admin: 04/28/17 07:57 Dose: 50 mls/hr Latanoprost (Xalatan 0.005% Ophth Soln) 0 ml EYEBOTH BEDTIME [facility] Last Admin: 04/27/17 22:21 Dose: 1 drop Levothyroxine Sodium (Levothyroxine) 150 mcg PO ACBREAKFAST [facility] Last Admin: 04/28/17 05:54 Dose: Not Given Lorazepam (Ativan) 0.5 mg IVPUSH Q8H PRN PRN Reason: Anxiety Last Admin: 04/28/17 08:49 Dose: 0.5 mg Memantine (Namenda) 5 mg PO BID [facility] Last Admin: 04/27/17 22:19 Dose: Not Given Metformin HCl (Glucophage) 500 mg PO BIDMEALS [facility] Last Admin: 04/28/17 06:19 Dose: Not Given Metoprolol Tartrate (Lopressor) 50 mg PO DAILY [facility] Last Admin: 04/27/17 10:50 Dose: 50 mg Metoprolol Tartrate (Lopressor) 25 mg PO DAILY@2100 [facility] Last Admin: 04/27/17 22:19 Dose: Not Given Timolol Maleate ( Timoptic) 0.5% Ophth Solution Own Med* * 0 drop EYELF BID [facility] Last Admin: 04/27/17 22:05 Dose: 1 drop Olanzapine (Zyprexa) 15 mg PO BEDTIME [facility] Last Admin: 04/27/17 22:20 Dose: Not Given Ondansetron HCl (Zofran) 4 mg IV Q6H PRN PRN Reason: Nausea/Vomiting Polyethylene Glycol (Miralax) 17 gm PO DAILY PRN PRN Reason: Constipation Senna/Docusate Sodium (Senna Plus) 1 tab PO BID PRN PRN Reason: Constipation Discontinued Medications Bisacodyl (Dulcolax) 10 mg RECTAL ONETIME ONE Stop: 04/28/17 04:21 Last Admin: 04/28/17 05:54 Dose: 10 mg Haloperidol Lactate (Haldol) 0.5 mg IVPUSH ONETIME ONE Stop: 04/26/17 09:22 Last Admin: 04/26/17 09:39 Dose: 0.5 mg Haloperidol Lactate (Haldol) 0.5 mg IVPUSH ONETIME ONE Stop: 04/26/17 14:33 Last Admin: 04/26/17 14:38 Dose: 0.5 mg Lactated Ringer's (Ringers, Lactated) 500 mls @ 999 mls/hr IV .BOLUS ONE Stop: 04/25/17 15:30 Last Admin: 04/25/17 15:24 Dose: 999 mls/hr Magnesium Sulfate 2 gm/ Premix 50 mls @ 25 mls/hr IV ONETIME ONE Stop: 04/25/17 22:58 Last Admin: 04/25/17 21:52 Dose: 25 mls/hr Magnesium Sulfate 2 gm/ Premix 50 mls @ 25 mls/hr IV ONETIME ONE Stop: 04/27/17 19:39 Last Admin: 04/27/17 18:11 Dose: 25 mls/hr Lorazepam (Ativan) 0.5 mg IVPUSH ONETIME ONE Stop: 04/26/17 09:23 Last Admin: 04/26/17 09:40 Dose: 0.5 mg Lorazepam (Ativan) 0.5 mg IVPUSH ONETIME ONE Stop: 04/26/17 14:32 Last Admin: 04/26/17 14:38 Dose: 0.5 mg Metoprolol Tartrate (Lopressor) 50 mg PO BID [facility] Last Admin: 04/25/17 23:59 Dose: 50 mg Non-Formulary Medication (Brimonidine Tartrate) 1 drop EYEBOTH BID [facility] Non-Formulary Medication (Memantine Hcl) 7 mg PO DAILY [facility] Ondansetron HCl (Zofran Odt) 4 mg PO Q6H PRN PRN Reason: nausea, able to take PO Timolol Maleate (Timoptic 0.25% Ophth Soln) 0 ml EYELF BID [facility] Last Admin: 04/27/17 10:54 Dose: Not Given - Exam Quality Assessment: Reports: DVT Prophylaxis General: Reports: Alert, Oriented, Cooperative, No Acute Distress HEENT: Reports: Pupils Equal, Pupils Reactive, EOMI Neck: Reports: Supple, Trachea Midline Lungs: Reports: Normal Respiratory Effort Cardiovascular: Reports: Regular Rate GI/Abdominal Exam: Normal Bowel Sounds, Soft, Non-Tender, No Organomegaly, No Distention (Female) Exam: Deferred Rectal (Female) Exam: Deferred Back Exam: Reports: Normal Inspection Extremities: Normal Inspection Skin: Reports: Warm Neurological: Reports: No New Focal Deficit Psy/Mental Status: Reports: Alert *Q Meaningful Use (DIS) - VTE *Q VTE Criteria *Q: - Stroke *Q Stroke Criteria *Q: - AMI *Q AMI Criteria *Q:
[2017-04-28] MEDS ORDERED: Aspirin 81 MG Tab.EC PO SCH (09:45)
[2017-04-28 10:26] VITALS: BP 122/54
[2017-04-28] MEDS: TIMOLOL MALEATE 0.5% EYELF SCH (11:42)
[2017-04-28] MEDS: Colesevelam 625 MG Tab PO SCH (11:42)
[2017-04-28] MEDS: Brimonidine 0.2% Ophth Soln 5 ML Bottle EYEBOTH SCH (11:42)
[2017-04-28] MEDS: Hypromellose 0.5% Ophth Soln 15 ML Bottle EYEBOTH SCH (11:42)
[2017-04-28] MEDS: Memantine 10 MG Tab PO SCH (11:42)
[2017-04-28] MEDS: Metoprolol Tartrate 50 MG Tab PO SCH (11:42)
[2017-04-28] MEDS: Famotidine 20 MG Tab PO SCH (11:42)
[2017-04-28] MEDS: DORZOLAMIDE 2% EYELF SCH (11:42)
[2017-04-28] MEDS ORDERED: Simvastatin 10 MG Tab PO SCH (21:00)
== END 2017-04-28 10:54 | DRG 69 ==
LOC: JD.ED 14:20 → SUPCPDRO 14:20 → JD.MS 18:05
PROVIDERS: ADMIT Internal Medicine Cardiovascular Disease; ATTEND Internal Medicine Cardiovascular Disease
DX: G45.9 Transient cerebral ischemic attack, unspecified (principal); E83.42 Hypomagnesemia; G30.9 Alzheimer's disease, unspecified; F02.80 Dementia in other diseases classified elsewhere, unspecified severity, without behavioral disturbance, psychotic disturbance, mood disturbance, and anxiety; R41.0 Disorientation, unspecified; E03.9 Hypothyroidism, unspecified; R91.1 Solitary pulmonary nodule; E11.9 Type 2 diabetes mellitus without complications; Z88.0 Allergy status to penicillin; R62.7 Adult failure to thrive; Z91.81 History of falling; H40.9 Unspecified glaucoma; H04.129 Dry eye syndrome of unspecified lacrimal gland; K59.09 Other constipation; E78.5 Hyperlipidemia, unspecified; I10 Essential (primary) hypertension; K21.9 Gastro-esophageal reflux disease without esophagitis; F20.9 Schizophrenia, unspecified; E66.9 Obesity, unspecified; Z66 Do not resuscitate; M10.9 Gout, unspecified; Z88.6 Allergy status to analgesic agent; Z88.8 Allergy status to other drugs, medicaments and biological substances; Z87.891 Personal history of nicotine dependence; Z79.84 Long term (current) use of oral hypoglycemic drugs; Z79.899 Other long term (current) drug therapy; Z68.30 Body mass index [BMI] 30.0-30.9, adult
CPT/HCPCS: 71010; 71250; 70450; 96360; 99285; 93005; 85025; 85730; 85610; 81001; 36415; 80053; 83735; 84484; 83880; 83605; 87804 ×2; 87040 ×2; J7120; 70551; 70551-26; 80048; 80061; 82962; 83036; 84443; 86140; 86738; 87486; 87581; 87633; 87641; 87798; 92610-GN; 93306; 93880; 93880-26; 97116-GP; 97162-GP; 97166-GO; A9270-GY; J1630; J2060; J3475; J7040

== ENCOUNTER 2017-06-25 13:33 | Inpatient (IN) | payer MEDICARE, OTHER, MEDICAID ==
[2017-06-25] MEDS ORDERED: LORazepam 2 MG/ML SDV IVPUSH ONE (14:09)
--- NOTE | 2017-06-25 14:10 | EDM.PDOC ---
ED HPI GENERAL MEDICAL PROBLEM - General Chief Complaint: Fever Stated Complaint: [facility] Time Seen by Provider: 06/25/17 14:03 Source of Information: Reports: EMS, Shelter Records History Limitations: Reports: Altered Mental Status - History of Present Illness INITIAL COMMENTS - FREE TEXT/NARRATIVE: 82-year-old female sent in to our hospital from [facility] where she resides. Patient apparently fell at the residence this morning landing on her knees. She was aided back up and seemed to be able to walk. She seemed to be somewhat confused and nurses felt that she was warm to palpation suggesting an infection as well. Patient has degenerative brain disease and is not able to provide any useful history. She is agitated easily and not very cooperative with nursing staff's ability to obtain her vital signs etc. Onset: Today (Unclear when she fell.) Onset Date: 06/25/17 Duration: Hour(s): Location: Reports: Other (Bruise left knee and left shoulder.) Quality: Reports: Other Severity: Moderate (Patient is not able to state that she has hurt.) Context: Reports: Trauma (Fall at halfway where she resides. Landed on both knees.), Other. Denies: Activity, Exercise, Lifting, Sick Contact Associated Symptoms: Reports: Fever/Chills, Loss of Appetite, Malaise, Weakness (Generalized). Denies: Nausea/Vomiting (Not eating very well.) - Related Data Allergies Allergy/AdvReac Type Severity Reaction Status Date / Time atorvastatin Allergy Other Verified 06/25/17 13:53 codeine Allergy Other Verified 06/25/17 13:53 losartan Allergy Other Verified 06/25/17 13:53 morphine Allergy Other Verified 06/25/17 13:53 Penicillins Allergy Other Verified 06/25/17 13:53 Home Meds: Home Meds Acetaminophen [Tylenol] 650 mg PO Q4H PRN 06/25/17 [History] Aspirin 81 mg PO DAILY 06/25/17 [History] Bisacodyl [Dulcolax] 10 mg RECTAL ASDIRECTED PRN 06/25/17 [History] Calcium Carbonate [Tums] 200 mg PO DAILY PRN 06/25/17 [History] Dextromethorphan/guaiFENesin [Robitussin DM] 10 ml PO QID PRN 06/25/17 [History] Furosemide [Lasix] 20 mg PO DAILY 06/25/17 [History] Levothyroxine 150 mcg PO DAILY 06/25/17 [History] Memantine HCl [Namenda Xr] 7 mg PO DAILY 06/25/17 [History] Metoprolol Tartrate 50 mg PO BID 06/25/17 [History] OLANZapine [ZyPREXA Zydis] 15 mg PO BEDTIME 06/25/17 [History] Polyethylene Glycol 3350 [MiraLAX] 17 gm PO Q2D 06/25/17 [History] Sennosides [Senna] 1 tab PO DAILY PRN 06/25/17 [History] Simvastatin [Zocor] 5 mg PO BEDTIME 06/25/17 [History] Betamethasone/Clotrimazole [Lotrisone] 1 applic TOP BID PRN 06/26/17 [History] Bisacodyl 30 ml RECTAL Q3D PRN 06/26/17 [History] Brimonidine Tartrate [Alphagan P 0.1% Ophth Soln] 1 drop EYEBOTH BID 06/26/17 [ History] Lyle/Min Oil/Denae/Wool Alcoh [Eucerin Creme] 1 applic TOP BID PRN 06/26/17 [ History] Dextran 70/Hypromellose [Artificial Tears] 1 drop EYEBOTH Q4HR 06/26/17 [History ] Dorzolamide [Trusopt 2% Ophth Soln] 1 drop EYELF BID 06/26/17 [History] Dorzolamide [Trusopt 2% Ophth Soln] 10 ml EYELF BID 06/26/17 [History] Latanoprost [Xalatan 0.005% Ophth Soln] 1 drop EYEBOTH BEDTIME 06/26/17 [History ] Levofloxacin [Levaquin] 250 mg PO Q24H #5 tablet 06/26/17 [Rx] Polyethylene Glycol 3350 [MiraLAX] 17 gm PO Q2D packet 06/26/17 [Rx] Timolol Maleate [Timoptic 0.5% Ophth Soln] 1 drop EYELF BID 06/26/17 [History] Past Medical History HEENT History: Reports: Glaucoma, Impaired Vision, Other (See Below) Other HEENT History: dry eyes syndrome, wears eyeglasses. Cardiovascular History: Reports: High Cholesterol, Hypertension Gastrointestinal History: Reports: Chronic Constipation, GERD Genitourinary History: Reports: Renal Disease, Other (See Below) Other Genitourinary History: hx hyperglycemic--hyperosmolar coma ([facility]) [employer] History: Reports: Musculoskeletal History: Reports: Gout Other Musculoskeletal History: uses walker Neurological History: Reports: Alzheimers Disease, Other (See Below) Other Neuro History: encephalopathy, AMS Psychiatric History: Reports: Alzheimers Disease, Dementia, Schizophrenia, Other (See Below) Other Psychiatric History: delirium Endocrine/Metabolic History: Reports: Diabetes, Type II, Hypothyroidism, Obesity /BMI 30+ - Infectious Disease History Infectious Disease History: Reports: Other (See Below) Other Infectious Disease History: none per record. MRSA swab sent on this stay - Past Surgical History Other Endocrine Surgeries/Procedures: thyroid surgery Neurological Surgical History: Reports: None Social & Family History - Family History Family Medical History: Noncontributory - Tobacco Use Smoking Status *Q: Former Smoker Used Tobacco, but Quit: Yes Month Tobacco Last Used: 40 yrs Second Hand Smoke Exposure: No - Caffeine Use Caffeine Use: Reports: Coffee - Recreational Drug Use Recreational Drug Use: No - Living Situation & Occupation Living situation: Reports: Extended Care Facility (Currently living in the [facility]) Occupation: Retired ED ROS GENERAL - Review of Systems Review Of Systems: Unable To Obtain (Unable to obtain from the patient) ED EXAM, SEPSIS - Physical Exam Exam: See Below (Unable to obtain from the patient due to organic brain disease. ) Exam Limited By: Altered Mental Status (Confused and moderately combat of not very cooperative with getting vital signs and being examined.) General Appearance: Moderate Distress (Anxious and somewhat agitated.) Eye Exam: Bilateral Eye: Normal Inspection (No jaundice.) Ears: Normal TMs Throat/Mouth: Normal Voice, Other Head: Atraumatic (Tongue is mildly dry and coated.), Normocephalic, Other (No outward signs of head trauma.) Neck: Normal Inspection, Other (Mild crepitus on rotation but no restriction of range of motion.). No: Supple, Limited Range of Motion Respiratory/Chest: No Respiratory Distress, Lungs Clear, Normal Breath Sounds, No Accessory Muscle Use, Chest Non-Tender, Respiratory Distress, Other Cardiovascular: Normal Peripheral Pulses (No obvious injuries to her chest wall. ), Regular Rate, Rhythm, No Murmur, Other (Mild dependent edema bilaterally.) Peripheral Pulses: 0: Posterior Tibial (L), Posterior Tibial (R), Dorsalis Pedis (L), Dorsalis Pedis (R) GI/Abdominal Exam: Normal Bowel Sounds, Soft, Non-Tender, No Organomegaly Back: Normal Inspection, Full Range of Motion, Other (No outward signs of trauma with abrasions or contusions to the). No: CVA Tenderness (L), CVA Tenderness (R) Extremities: Other ( thoracic or lumbar spine. mild bruise just superior to the left patella noted on her left knee and she complains when I flex her knee and internally externally rotate her hip. The right leg shows minimal contusion to the patella but she has full unrestricted range of motion without much pain. She does have decreased external rotation of the hip indicating arthritis. Also a bruise over her left acromioclavicular joint that may or may not have come from recent fall as it may be a day or so.) Neurological: No: Normal Cognition, Normal Gait, No Motor/Sensory Deficits Psychiatric: Other Skin: Warm (Somewhat agitated and anxious.), Dry, Intact, Normal Color, Other ( Feels quite warm to palpation and she may have a fever but nurses got normal temperature on skin check and 99.3 rectally.) EKG INTERPRETATION EKG Date: 06/25/17 Time: 14:50 Rhythm: NSR Rate (Beats/Min): 80 [place]: LAD-Left Quincy Deviation (Borderline) P-Wave: Present QRS: Other (Q waves from V1 to V5 suggesting an old large anteroseptal myocardial infarction. Decreased voltage in the precordial leads. Mild Q waves noted in leads 3 and aVF consider old inferior wall myocardial infarction as well.) ST-T: Other (Mild diffuse early repolarization pattern.) QT: Normal EKG Interpretation Comments: Abnormal ECG. Course - Vital Signs Last Recorded V/S: Last Vital Signs Temp 36.9 C 06/26/17 11:01 Pulse 93 06/26/17 11:01 Resp 18 06/26/17 11:01 BP 139/77 06/26/17 11:01 Pulse Ox 97 06/26/17 11:01 - Orders/Labs/Meds Labs: Laboratory Tests 06/25/17 06/25/17 06/25/17 Range/Units 14:00 14:00 14:00 WBC 8.39 (3.98-10.04) K/mm3 RBC 3.88 L (3.98-5.22) M/mm3 Hgb 12.2 (11.2-15.7) gm/L Hct 36.2 (34.1-44.9) % MCV 93.3 (79.4-94.8) fl MCH 31.4 (25.6-32.2) pg MCHC 33.7 (32.2-35.5) g/dl RDW Std Deviation 46.1 (36.4-46.3) fL Plt Count 191 (182-369) K/mm3 MPV 11.5 (9.4-12.3) fl Neutrophils % (Manual) 71 H (40-60) % Band Neutrophils % 0 (0-10) % Lymphocytes % (Manual) 20 (20-40) % Atypical Lymphs % 0 % Monocytes % (Manual) 7 (2-10) % Eosinophils % (Manual) 2 (0.7-5.8) % Basophils % (Manual) 0 L (0.1-1.2) Platelet Estimate Adequate Anisocytosis 1+ slight Macrocytosis 1+ slight Ovalocytes 1+ slight RBC Morph Comment Not Reportable ESR (0-20) mm/hr PT 11.2 (8.0-13.0) SECONDS INR 1.03 Sodium 145 (136-145) mEq/L Potassium 3.9 (3.5-5.1) mEq/L Chloride 109 H (98-107) mEq/L Carbon Dioxide 24 (21-32) mEq/L Anion Gap 15.9 H (5-15) BUN 24 H (7-18) mg/dL Creatinine 1.2 H (0.55-1.02) mg/dL Est Cr Clr Drug Dosing 30.93 mL/min Estimated GFR (MDRD) 43 (>60) mL/min BUN/Creatinine Ratio 20.0 H (14-18) Glucose 86 (83-115) mg/dL POC Glucose (83-110) mg/dL Lactic Acid (0.4-2.0) mmol/L Calcium 9.6 (8.5-10.1) mg/dL Magnesium 1.9 (1.8-2.4) mg/dl Total Bilirubin 0.8 (0.2-1.0) mg/dL AST 19 (15-37) U/L ALT 16 (14-59) U/L Alkaline Phosphatase 43 L (46-116) U/L CK-MB (CK-2) 2.4 (0-3.6) ng/ml Troponin I < 0.017 (0.00-0.056) ng/mL C-Reactive Protein < 0.2 (<1.0) mg/dL NT-Pro-B Natriuret Pep 324 (0-450) pg/mL Total Protein 6.9 (6.4-8.2) g/dl Albumin 3.3 L (3.4-5.0) g/dl Globulin 3.6 gm/dL Albumin/Globulin Ratio 0.9 L (1-2) Urine Color (Yellow) Urine Appearance (Clear) Urine pH (5.0-8.0) Ur Specific [place] (1.005-1.030) Urine Protein (Negative) Urine Glucose (UA) (Negative) Urine Ketones (Negative) Urine Occult Blood (Negative) Urine Nitrite (Negative) Urine Bilirubin (Negative) Urine Urobilinogen (0.2-1.0) Ur Leukocyte Esterase (Negative) Urine RBC (0-5) /hpf Urine WBC (0-5) /hpf Ur Epithelial Cells (0-5) /hpf Urine Bacteria (FEW) /hpf Urine Mucus (FEW) /hpf 06/25/17 06/25/17 06/25/17 Range/Units 14:00 14:25 15:09 WBC (3.98-10.04) K/mm3 RBC (3.98-5.22) M/mm3 Hgb (11.2-15.7) gm/L Hct (34.1-44.9) % MCV (79.4-94.8) fl MCH (25.6-32.2) pg MCHC (32.2-35.5) g/dl RDW Std Deviation (36.4-46.3) fL Plt Count (182-369) K/mm3 MPV (9.4-12.3) fl Neutrophils % (Manual) (40-60) % Band Neutrophils % (0-10) % Lymphocytes % (Manual) (20-40) % Atypical Lymphs % % Monocytes % (Manual) (2-10) % Eosinophils % (Manual) (0.7-5.8) % Basophils % (Manual) (0.1-1.2) Platelet Estimate Anisocytosis Macrocytosis Ovalocytes RBC Morph Comment ESR 36 H (0-20) mm/hr PT (8.0-13.0) SECONDS INR Sodium (136-145) mEq/L Potassium (3.5-5.1) mEq/L Chloride (98-107) mEq/L Carbon Dioxide (21-32) mEq/L Anion Gap (5-15) BUN (7-18) mg/dL Creatinine (0.55-1.02) mg/dL Est Cr Clr Drug Dosing mL/min Estimated GFR (MDRD) (>60) mL/min BUN/Creatinine Ratio (14-18) Glucose (83-115) mg/dL POC Glucose 84 (83-110) mg/dL Lactic Acid 1.3 (0.4-2.0) mmol/L Calcium (8.5-10.1) mg/dL Magnesium (1.8-2.4) mg/dl Total Bilirubin (0.2-1.0) mg/dL AST (15-37) U/L ALT (14-59) U/L Alkaline Phosphatase (46-116) U/L CK-MB (CK-2) (0-3.6) ng/ml Troponin I (0.00-0.056) ng/mL C-Reactive Protein (<1.0) mg/dL NT-Pro-B Natriuret Pep (0-450) pg/mL Total Protein (6.4-8.2) g/dl Albumin (3.4-5.0) g/dl Globulin gm/dL Albumin/Globulin Ratio (1-2) Urine Color (Yellow) Urine Appearance (Clear) Urine pH (5.0-8.0) Ur Specific [place] (1.005-1.030) Urine Protein (Negative) Urine Glucose (UA) (Negative) Urine Ketones (Negative) Urine Occult Blood (Negative) Urine Nitrite (Negative) Urine Bilirubin (Negative) Urine Urobilinogen (0.2-1.0) Ur Leukocyte Esterase (Negative) Urine RBC (0-5) /hpf Urine WBC (0-5) /hpf Ur Epithelial Cells (0-5) /hpf Urine Bacteria (FEW) /hpf Urine Mucus (FEW) /hpf 06/25/17 Range/Units 15:10 WBC (3.98-10.04) K/mm3 RBC (3.98-5.22) M/mm3 Hgb (11.2-15.7) gm/L Hct (34.1-44.9) % MCV (79.4-94.8) fl MCH (25.6-32.2) pg MCHC (32.2-35.5) g/dl RDW Std Deviation (36.4-46.3) fL Plt Count (182-369) K/mm3 MPV (9.4-12.3) fl Neutrophils % (Manual) (40-60) % Band Neutrophils % (0-10) % Lymphocytes % (Manual) (20-40) % Atypical Lymphs % % Monocytes % (Manual) (2-10) % Eosinophils % (Manual) (0.7-5.8) % Basophils % (Manual) (0.1-1.2) Platelet Estimate Anisocytosis Macrocytosis Ovalocytes RBC Morph Comment ESR (0-20) mm/hr PT (8.0-13.0) SECONDS INR Sodium (136-145) mEq/L Potassium (3.5-5.1) mEq/L Chloride (98-107) mEq/L Carbon Dioxide (21-32) mEq/L Anion Gap (5-15) BUN (7-18) mg/dL Creatinine (0.55-1.02) mg/dL Est Cr Clr Drug Dosing mL/min Estimated GFR (MDRD) (>60) mL/min BUN/Creatinine Ratio (14-18) Glucose (83-115) mg/dL POC Glucose (83-110) mg/dL Lactic Acid (0.4-2.0) mmol/L Calcium (8.5-10.1) mg/dL Magnesium (1.8-2.4) mg/dl Total Bilirubin (0.2-1.0) mg/dL AST (15-37) U/L ALT (14-59) U/L Alkaline Phosphatase (46-116) U/L CK-MB (CK-2) (0-3.6) ng/ml Troponin I (0.00-0.056) ng/mL C-Reactive Protein (<1.0) mg/dL NT-Pro-B Natriuret Pep (0-450) pg/mL Total Protein (6.4-8.2) g/dl Albumin (3.4-5.0) g/dl Globulin gm/dL Albumin/Globulin Ratio (1-2) Urine Color Yellow (Yellow) Urine Appearance Clear (Clear) Urine pH 5.5 (5.0-8.0) Ur Specific [place] 1.025 (1.005-1.030) Urine Protein Negative (Negative) Urine Glucose (UA) Negative (Negative) Urine Ketones Trace H (Negative) Urine Occult Blood Trace-lysed H (Negative) Urine Nitrite Positive H (Negative) Urine Bilirubin Negative (Negative) Urine Urobilinogen 0.2 (0.2-1.0) Ur Leukocyte Esterase Trace H (Negative) Urine RBC 0-5 (0-5) /hpf Urine WBC 10-20 H (0-5) /hpf Ur Epithelial Cells 0-5 (0-5) /hpf Urine Bacteria Many H (FEW) /hpf Urine Mucus Few (FEW) /hpf Meds: Medications Discontinued Medications Generic Name Dose Route Start Last Admin Trade Name Freq PRN Reason Stop Dose Admin Acetaminophen 650 mg 06/25/17 19:02 06/25/17 21:48 Tylenol PO 650 mg Q6H PRN Administration Pain Aspirin 81 mg 06/26/17 09:00 06/26/17 09:28 Aspirin PO 81 mg DAILY VICKIE Administration Betamethasone/Clotrimazole 0 gm 06/26/17 11:56 Lotrisone TOP BID PRN rash Bisacodyl 10 mg 06/26/17 11:56 Dulcolax PO ASDIRECTED PRN Constipation Calcium Carbonate/Glycine 500 mg 06/26/17 11:56 Tums PO DAILY PRN Heartburn Dorzolamide HCl 0 ml 06/26/17 21:00 Trusopt 2% Ophth Soln EYELF BID VICKIE Dorzolamide HCl 0 ml 06/26/17 21:00 Trusopt 2% Ophth Soln EYELF BID VICKIE Furosemide 20 mg 06/27/17 09:00 Lasix PO DAILY VICKIE Guaifenesin/Phenylephrine HCl 10 ml 06/26/17 11:56 Robitussin Dm PO QID PRN Congestion Sodium Chloride 1,000 mls @ 100 mls/hr 06/25/17 14:15 06/25/17 21:54 Normal Saline IV 250 mls/hr ASDIRECTED VICKIE Administration Levofloxacin/Dextrose 750 mg/ 150 mls @ 100 mls/hr 06/25/17 16:30 06/25/17 16 :38 Premix IV 06/25/17 17:59 100 mls/hr ONETIME ONE Administration Levofloxacin/Dextrose 750 mg/ 150 mls @ 100 mls/hr 06/27/17 16:30 Premix IV Q48H VICKIE Sodium Chloride 1,000 mls @ 100 mls/hr 06/26/17 00:30 06/25/17 23:20 Normal Saline IV 100 mls/hr ASDIRECTED VICKIE Administration Levofloxacin/Dextrose 750 mg/ 150 mls @ 100 mls/hr 06/26/17 12:00 Premix IV 06/26/17 13:29 Q48H VICKIE Latanoprost 0 ml 06/26/17 21:00 Xalatan 0.005% Ophth Soln EYEBOTH BEDTIME VICKIE Levofloxacin 250 mg 06/27/17 10:00 Levaquin PO Q24H VICKIE Levothyroxine Sodium 150 mcg 06/26/17 06:00 06/26/17 05:41 Levothyroxine PO 150 mcg ACBREAKFAST VICKIE Administration Lorazepam 1 mg 06/25/17 14:09 06/25/17 14:21 Ativan IVPUSH 06/25/17 14:10 0.5 mg ONETIME ONE Administration Lorazepam 1 mg 06/25/17 20:37 06/26/17 09:24 Ativan IVPUSH 1 mg Q8H PRN Administration Anxiety Metoprolol Tartrate 25 mg 06/25/17 21:00 06/26/17 09:28 Lopressor PO 25 mg BID VICKIE Administration Mineral Oil/White Petrolatum 1 gm 06/26/17 11:56 Minerin Creme TOP BID PRN Dryness Olanzapine 15 mg 06/26/17 09:00 Zyprexa Zydis PO DAILY [facility] Olanzapine 15 mg 06/26/17 21:00 Zyprexa PO BEDTIME VICKIE Memantine Hcl 7 Mg 0 each 06/26/17 09:00 06/26/17 09:30 Xr (Namenda) PO Not Given DAILY [facility] Bisacodyl 30 Ml 0 each 06/26/17 11:56 RECTAL Q3D PRN Constipation Brinomidine 0.1% 0 each 06/26/17 21:00 Ophth. Drops EYEBOTH BID VICKIE Dextran 70%/ 0 each 06/26/17 13:00 Hypromellose Ophtht EYEBOTH Drops Q4HR VICKIE Polyethylene Glycol 17 gm 06/26/17 09:00 Miralax PO DAILY VICKIE Polyethylene Glycol 17 gm 06/26/17 09:00 06/26/17 09:34 Miralax PO 17 gm Q2D VICKIE Administration Senna 8.6 mg 06/26/17 11:56 Senna PO DAILY PRN Constipation Simvastatin 5 mg 06/25/17 21:00 06/25/17 21:52 Zocor PO 5 mg BEDTIME VICKIE Administration Timolol Maleate 0 ml 06/26/17 21:00 Timoptic 0.5% Ophth Soln EYELF BID VICKIE - Radiology Interpretation Free Text/Narrative:: 82-year-old female brought to the ED from [place] by ambulance for evaluation after she fell onto both knees. It's unclear whether this was witnessed by staff. She has a bruise over her left patella superiorly oriented i.e. distal femur. Bruising over the left before meals joint. No outward signs of head or neck trauma or rib or thoracic lumbar spine trauma. She does feel warm to palpation one wonders if she is running a fever. Therefore septic workup will be done including a lactic acid level. She is quite agitated and was not very cooperative with nurses particularly trying to obtain a rectal temperature. Plan x-ray of the left shoulder and left knee to be done. Routine labs to include lactic acid level and urinalysis likely by catheterization. Will give Ativan 1 mg IV to provide some degree of sedation so that she may be able to comply with investigations. - Re-Assessments/Exams Free Text/Narrative Re-Assessment/Exam: 06/25/17 15:11 Labs reveal a normal white count at 8.39 with 71% neutrophils and no bands. Hemoglobin is 12.2 with a hematocrit of 36.2. Platelet count is 191,000. PT is 11.2 with an INR 1.03. Sodium is 145 with a potassium of 3.9. Chloride is 109 bicarbonate is 24. And a gap is 15.9 slightly elevated BUN is 24 slightly elevated. Liver function is normal magnesium normal at 1.9. Glucose is 86. CK-MB fraction is 2.4 with a troponin I of his left-sided 0.017. C- reactive protein is less than 0.2 BNP is 324. Lactic acid is pending. 06/25/17 . X-rays of the left knee revealed [id number] with the patellofemoral junction. 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 There is also spurring from the posterior intercondylar process. No fractures are identified however. Left shoulder shows a large gap between the acromial humeral head compatible with significant rotator cuff disorder disease. No fractures are identified in the shoulder or acromion process. The chest x-ray suggests an early infiltrate in the right upper lobe of the right lung suggestive of an early pneumonitis. There is also some congestion of the right hilar areas suggestive of vascular congestion. Influenza screen was negative as well. 06/25/17 16:28 Sedimentation rate was 36. Lactic acid was 1.3. Urinalysis reveals positive nitrates with 10-20 pus cells per hpf. Urine culture ordered. She will be started on Levaquin 750 mg IV. 06/25/17 17:20 Case discussed with on-call hospitalist -- Dr. Vu and she will admit the patient to [facility] on telemetry. Departure - Departure Time of Disposition: 20:20 Disposition: Admitted As Inpatient 68 Condition: Poor Clinical Impression: Acute febrile illness Urinary tract infection Qualifiers: Urinary tract infection type: site unspecified Hematuria presence: without hematuria Qualified Code(s): N39.0 - Urinary tract infection, site not specified Fall as cause of accidental injury in residential institution as place of occurrence Qualifiers: Encounter type: initial encounter Qualified Code(s): W19.XXXA - Unspecified fall, initial encounter Contusion of left knee Qualifiers: Encounter type: initial encounter Qualified Code(s): S80.02XA - Contusion of left knee, initial encounter Contusion of left shoulder Qualifiers: Encounter type: initial encounter Qualified Code(s): S40.012A - Contusion of left shoulder, initial encounter - Discharge Information
[2017-06-25] MEDS: Sodium Chloride 0.9% 1,000 ML IV SCH ×2 (14:21→21:54)
[2017-06-25] MEDS ORDERED: Levofloxacin/Dextrose 5%-Water 750 MG in Premix Bag 1 BAG IV ONE (16:30)
--- NOTE | 2017-06-25 17:44 | PCM.HP ---
H&P History of Present Illness - General Date of Service: 06/25/17 Source of Information: Provider History Limitations: Reports: No Limitations - History of Present Illness Initial Comments - Free Text/Narative: 82 year old female fell without LOC, however did bruise left knee and shoulder. The patient reports weakness and not feeling well. She admits to fever/ chills and malaise. She displayed difficulty walking and was somewhat agitated during her ED assessment. The patient is from [place] with baseline dementia. [facility]. Onset of Symptoms: Reports: Unknown/Unsure Duration of Symptoms: Reports: Day(s):, Getting Worse Location: Reports: Chest, Generalized Severity: Moderate Improves with: Reports: Medication Worsens with: Reports: None Context: Reports: Sick Contact Associated Symptoms: Reports: Cough, Fever/Chills, Nausea/Vomiting, Weakness - Related Data Allergies/Adverse Reactions: Allergies Allergy/AdvReac Type Severity Reaction Status Date / Time atorvastatin Allergy Other Verified 06/25/17 13:53 codeine Allergy Other Verified 06/25/17 13:53 losartan Allergy Other Verified 06/25/17 13:53 morphine Allergy Other Verified 06/25/17 13:53 Penicillins Allergy Other Verified 06/25/17 13:53 Home Medications: Home Meds Acetaminophen [Tylenol] 650 mg PO Q4H PRN 06/25/17 [History] Aspirin 81 mg PO DAILY 06/25/17 [History] Bisacodyl [Dulcolax] 10 mg RECTAL ASDIRECTED PRN 06/25/17 [History] Calcium Carbonate [Tums] 200 mg PO DAILY PRN 06/25/17 [History] Dextromethorphan/guaiFENesin [Robitussin DM] 10 ml PO QID PRN 06/25/17 [History] Furosemide [Lasix] 20 mg PO DAILY 06/25/17 [History] Levothyroxine 150 mcg PO DAILY 06/25/17 [History] Memantine HCl [Namenda Xr] 7 mg PO DAILY 06/25/17 [History] Metoprolol Tartrate 50 mg PO BID 06/25/17 [History] OLANZapine [ZyPREXA Zydis] 15 mg PO BEDTIME 06/25/17 [History] Polyethylene Glycol 3350 [MiraLAX] 17 gm PO Q2D 06/25/17 [History] Sennosides [Senna] 1 tab PO DAILY PRN 06/25/17 [History] Simvastatin [Zocor] 5 mg PO BEDTIME 06/25/17 [History] Betamethasone/Clotrimazole [Lotrisone] 1 applic TOP BID PRN 06/26/17 [History] Bisacodyl 30 ml RECTAL Q3D PRN 06/26/17 [History] Brimonidine Tartrate [Alphagan P 0.1% Ophth Soln] 1 drop EYEBOTH BID 06/26/17 [ History] [place]/Min Oil/Denae/Wool Alcoh [Eucerin Creme] 1 applic TOP BID PRN 06/26/17 [ History] Dextran 70/Hypromellose [Artificial Tears] 1 drop EYEBOTH Q4HR 06/26/17 [History ] Dorzolamide [Trusopt 2% Ophth Soln] 1 drop EYELF BID 06/26/17 [History] Dorzolamide [Trusopt 2% Ophth Soln] 10 ml EYELF BID 06/26/17 [History] Latanoprost [Xalatan 0.005% Ophth Soln] 1 drop EYEBOTH BEDTIME 06/26/17 [History ] Levofloxacin [Levaquin] 250 mg PO Q24H #5 tablet 06/26/17 [Rx] Polyethylene Glycol 3350 [MiraLAX] 17 gm PO Q2D packet 06/26/17 [Rx] Timolol Maleate [Timoptic 0.5% Ophth Soln] 1 drop EYELF BID 06/26/17 [History] Past Medical History HEENT History: Reports: Glaucoma, Impaired Vision, Other (See Below) Other HEENT History: dry eyes syndrome, wears eyeglasses. Cardiovascular History: Reports: High Cholesterol, Hypertension Gastrointestinal History: Reports: Chronic Constipation, GERD Genitourinary History: Reports: Renal Disease, Other (See Below) Other Genitourinary History: hx hyperglycemic--hyperosmolar coma ([facility]) [employer] History: Reports: Musculoskeletal History: Reports: Gout Other Musculoskeletal History: uses walker Neurological History: Reports: Alzheimers Disease, Other (See Below) Other Neuro History: encephalopathy, AMS Psychiatric History: Reports: Alzheimers Disease, Dementia, Schizophrenia, Other (See Below) Other Psychiatric History: delirium Endocrine/Metabolic History: Reports: Diabetes, Type II, Hypothyroidism, Obesity /BMI 30+ - Infectious Disease History Infectious Disease History: Reports: Other (See Below) Other Infectious Disease History: none per record. MRSA swab sent on this stay - Past Surgical History Other Endocrine Surgeries/Procedures: thyroid surgery Neurological Surgical History: Reports: None Social & Family History - Family History Family Medical History: Noncontributory - Tobacco Use Smoking Status *Q: Former Smoker Used Tobacco, but Quit: Yes Month Tobacco Last Used: 40 yrs Second Hand Smoke Exposure: No - Caffeine Use Caffeine Use: Reports: Coffee - Recreational Drug Use Recreational Drug Use: No - Living Situation & Occupation Living situation: Reports: Extended Care Facility (Currently living in the [facility] ([facility]]) Occupation: Retired H&P Review of Systems - Review of Systems: Review Of Systems: See Below General: Reports: Fever, Chills, Malaise, Weakness HEENT: Reports: No Symptoms Pulmonary: Reports: No Symptoms Cardiovascular: Reports: No Symptoms Gastrointestinal: Reports: No Symptoms Genitourinary: Reports: No Symptoms Musculoskeletal: Reports: No Symptoms Skin: Reports: No Symptoms Psychiatric: Reports: No Symptoms Neurological: Reports: No Symptoms Exam - Exam Exam: See Below - Vital Signs Vital Signs: Last Vital Signs Temp 37.4 C 06/25/17 13:53 Pulse 95 06/25/17 13:53 Resp 15 06/25/17 13:53 BP 115/75 06/25/17 13:53 Pulse Ox 96 06/25/17 13:53 Weight: 81.647 kg - Exam Quality Assessment: DVT Prophylaxis General: Alert, Oriented (self) HEENT: Conjunctiva Clear, Nares Patent, Normal Nasal Septum, Pupils Equal, Pupils Reactive, PERRLA Neck: Supple, Trachea Midline Lungs: Normal Respiratory Effort Cardiovascular: Regular Rate, Regular Rhythm GI/Abdominal Exam: Normal Bowel Sounds, Soft, Non-Tender, No Organomegaly, No Distention (Female) Exam: Deferred Rectal (Female) Exam: Deferred Back Exam: Normal Inspection Extremities: Normal Inspection Skin: Warm Neurological: Cranial Nerves Intact Neuro Extensive - Mental Status: Alert - Patient Data Result Diagrams: 06/26/17 07:30 06/26/17 07:30 *Q Meaningful Use (ADM) - VTE *Q VTE Criteria *Q: - Stroke *Q Stroke Criteria *Q: - AMI *Q AMI Criteria *Q: - Problem List (1) Acute febrile illness SNOMED Code(s): 623736381 ICD Code: R50.9 - FEVER, UNSPECIFIED Status: Acute Current Visit: Yes (2) Contusion of left knee SNOMED Code(s): 05499152 ICD Code: S80.02XA - CONTUSION OF LEFT KNEE, INITIAL ENCOUNTER Status: Acute Current Visit: Yes Qualifiers: Encounter type: initial encounter Qualified Code(s): S80.02XA - Contusion of left knee, initial encounter (3) Contusion of left shoulder SNOMED Code(s): 95043365 ICD Code: S40.012A - CONTUSION OF LEFT SHOULDER, INITIAL ENCOUNTER Status: Acute Current Visit: Yes Qualifiers: Encounter type: initial encounter Qualified Code(s): S40.012A - Contusion of left shoulder, initial encounter (4) Urinary tract infection SNOMED Code(s): 78022733 ICD Code: N39.0 - URINARY TRACT INFECTION, SITE NOT SPECIFIED Status: Acute Current Visit: Yes Qualifiers: Urinary tract infection type: site unspecified Hematuria presence: without hematuria Qualified Code(s): N39.0 - Urinary tract infection, site not specified Problem List Initiated/Reviewed/Updated: Yes Orders Last 24hrs: Medication Orders Sodium Chloride (Normal Saline) 1,000 mls @ 250 mls/hr IV ASDIRECTED [facility] Last Admin: 06/25/17 14:21 Dose: 250 mls/hr Levofloxacin/Dextrose 750 mg/ (Premix) 150 mls @ 100 mls/hr IV ONETIME ONE Stop: 06/25/17 17:59 Last Admin: 06/25/17 16:38 Dose: 100 mls/hr Assessment/Plan Comment:: Impression: S/P fall without LOC Febrile illness unlikely pulmonary source AUTI AMS with baseline dementia Plan: IVF Clear-->Full liquids after swallow eval Home meds Daily Labs Continue Levoquin DVT prophylaxis GI prophylaxis
[2017-06-25] MEDS ORDERED: Acetaminophen 325 MG Tab PO PRN (19:02)
[2017-06-25] MEDS ORDERED: Simvastatin 10 MG Tab PO SCH (21:00)
[2017-06-25] MEDS: Metoprolol Tartrate 50 MG Tab PO SCH (21:49)
[2017-06-25] MEDS: LORazepam 2 MG/ML SDV IVPUSH PRN (23:03)
[2017-06-26] MEDS ORDERED: Sodium Chloride 0.9% 1,000 ML IV SCH (00:30)
[2017-06-26] MEDS ORDERED: Levothyroxine 150 MCG Tab PO SCH (06:00)
--- NOTE | 2017-06-26 07:32 | CR ---
Left knee: AP and lateral views of the left knee were obtained. Comparison: No previous knee study. Severe medial joint space narrowing is seen. Medial osteophytes are also noted. Lateral joint space is preserved. Diffuse joint space narrowing is noted within the patellofemoral joint. No acute fracture or other abnormality is seen. Impression: 1. Degenerative change as noted above. 2. Nothing acute is appreciated on two-view left knee exam. Diagnostic code #2
--- NOTE | 2017-06-26 07:32 | CR ---
Left shoulder: Three views of the left shoulder were obtained. Comparison: No prior shoulder study. Glenohumeral joint and acromioclavicular joint appear within normal limits. Small cyst is noted at the base of the greater tuberosity which is incidental. Osteopenia is present. Nothing acute is seen. Impression: 1. Incidental findings. Nothing acute is identified. Diagnostic code #2
--- NOTE | 2017-06-26 07:32 | CR ---
Chest: Portable view of the chest was obtained. Comparison: Prior chest x-ray of 04/25/17. Heart size is normal. Tortuous thoracic aorta is seen. Slight scarring is seen within the left mid to lower lung. Central lung markings are mildly increased which appear to be chronic. No acute pulmonary densities are seen. Slight scoliosis is present within the spine. Impression: 1. Incidental findings. Nothing acute is suspected on portable chest x-ray. Diagnostic code #2
[2017-06-26] MEDS ORDERED: Polyethylene Glycol 3350 Powder 17 GM Packet PO SCH ×2 (09:00)
[2017-06-26] MEDS ORDERED: OLANZapine 5 MG Tab.DIS PO SCH (09:00)
[2017-06-26] MEDS ORDERED: MEMANTINE HCL 7 MG PO SCH (09:00)
[2017-06-26] MEDS ORDERED: Aspirin 81 MG Tab.Chew PO SCH (09:00)
[2017-06-26] MEDS: LORazepam 2 MG/ML SDV IVPUSH PRN (09:24)
[2017-06-26] MEDS: Metoprolol Tartrate 50 MG Tab PO SCH (09:28)
--- NOTE | 2017-06-26 10:07 | CT ---
Head CT Technique: Multiple axial sections through the brain were obtained. Intravenous contrast was not utilized. Comparison: Prior head CT study of 04/25/17. Findings: Ventricles along with basal cisterns and sulci over the convexities are mildly prominent. Mild diminished density is noted within the periventricular white matter compatible with small vessel ischemic demyelination change. No other abnormal parenchymal densities are seen. No evidence of intracranial hemorrhage. No midline shift or mass effect is seen. Slight atherosclerotic calcification is noted within the vertebral vessels and within the carotid siphon. Bone window settings were reviewed which show the visualized sinuses to appear clear. No acute calvarial abnormality is seen. Impression: 1. Mild senescent change. No acute intracranial abnormality is identified. No significant change is seen from prior head CT exam. Diagnostic code #2
--- NOTE | 2017-06-26 11:45 | PCM.DCSUM1 ---
Discharge Summary - Hospital Course Free Text/Narrative:: 82 year old female from [facility] dementia presented with AMS, improved after IVF and Levoquin. The ED was concerned about a possible respiratory culprit; the patient was admitted after receiving Levoquin in the ED as as well IVF. She was negative for influenza; she however did have a UTI. Renal dose Levoquin was povided; she was actively walking on the [place] floor after requesting a dinner on admission. She rapidly returned to baseline on admission , and will be given Levoquin 250 mg daily for 5 days at [place]. Primary Dx AMS with no LOC after falling Alzheimer dementia Dehydration Acute on chronic renal failure UTI Diet Heart healthy diet Medication New: Levoquin 250 mg daily. Activity As tolerated Follow up with PCP 1-2 weeks - Discharge Data Discharge Date: 06/26/17 Discharge Disposition: [facility]/Tfer to [facility] Condition: Good - Discharge Diagnosis/Problem(s) (1) Acute febrile illness SNOMED Code(s): 228588325 ICD Code: R50.9 - FEVER, UNSPECIFIED Status: Acute Current Visit: Yes (2) Contusion of left knee SNOMED Code(s): 19923860 ICD Code: S80.02XA - CONTUSION OF LEFT KNEE, INITIAL ENCOUNTER Status: Acute Current Visit: Yes Qualifiers: Encounter type: initial encounter Qualified Code(s): S80.02XA - Contusion of left knee, initial encounter (3) Contusion of left shoulder SNOMED Code(s): 12642692 ICD Code: S40.012A - CONTUSION OF LEFT SHOULDER, INITIAL ENCOUNTER Status: Acute Current Visit: Yes Qualifiers: Encounter type: initial encounter Qualified Code(s): S40.012A - Contusion of left shoulder, initial encounter (4) Urinary tract infection SNOMED Code(s): 62845823 ICD Code: N39.0 - URINARY TRACT INFECTION, SITE NOT SPECIFIED Status: Acute Current Visit: Yes Qualifiers: Urinary tract infection type: site unspecified Hematuria presence: without hematuria Qualified Code(s): N39.0 - Urinary tract infection, site not specified - Discharge Plan Prescriptions/Med Rec: Levofloxacin [Levaquin] 250 mg PO Q24H #5 tablet Home Medications: Home Meds Acetaminophen [Tylenol] 650 mg PO Q4H PRN 06/25/17 [History] Aspirin 81 mg PO DAILY 06/25/17 [History] Bisacodyl [Dulcolax] 10 mg RECTAL ASDIRECTED PRN 06/25/17 [History] Calcium Carbonate [Tums] 200 mg PO DAILY PRN 06/25/17 [History] Dextromethorphan/guaiFENesin [Robitussin DM] 10 ml PO QID PRN 06/25/17 [History] Furosemide [Lasix] 20 mg PO DAILY 06/25/17 [History] Levothyroxine 150 mcg PO DAILY 06/25/17 [History] Memantine HCl [Namenda Xr] 7 mg PO DAILY 06/25/17 [History] Metoprolol Tartrate 50 mg PO BID 06/25/17 [History] OLANZapine [ZyPREXA Zydis] 15 mg PO BEDTIME 06/25/17 [History] Polyethylene Glycol 3350 [MiraLAX] 17 gm PO Q2D 06/25/17 [History] Sennosides [Senna] 1 tab PO DAILY PRN 06/25/17 [History] Simvastatin [Zocor] 5 mg PO BEDTIME 06/25/17 [History] Betamethasone/Clotrimazole [Lotrisone] 1 applic TOP BID PRN 06/26/17 [History] Bisacodyl 30 ml RECTAL Q3D PRN 06/26/17 [History] Brimonidine Tartrate [Alphagan P 0.1% Ophth Soln] 1 drop EYEBOTH BID 06/26/17 [ History] [place]/Min Oil/Denae/Wool Alcoh [Eucerin Creme] 1 applic TOP BID PRN 06/26/17 [ History] Dextran 70/Hypromellose [Artificial Tears] 1 drop EYEBOTH Q4HR 06/26/17 [History ] Dorzolamide [Trusopt 2% Ophth Soln] 1 drop EYELF BID 06/26/17 [History] Dorzolamide [Trusopt 2% Ophth Soln] 10 ml EYELF BID 06/26/17 [History] Latanoprost [Xalatan 0.005% Ophth Soln] 1 drop EYEBOTH BEDTIME 06/26/17 [History ] Levofloxacin [Levaquin] 250 mg PO Q24H #5 tablet 06/26/17 [Rx] Polyethylene Glycol 3350 [MiraLAX] 17 gm PO Q2D packet 06/26/17 [Rx] Timolol Maleate [Timoptic 0.5% Ophth Soln] 1 drop EYELF BID 06/26/17 [History] Forms: ED Department Discharge Referrals: Anuj Vaz MD [Primary Care Provider] - (Please follow-up in 1 week with .) - General Info Date of Service: 06/25/17 Functional Status: Reports: Tolerating Diet, Ambulating, Urinating - Review of Systems General: Reports: No Symptoms HEENT: Reports: No Symptoms Pulmonary: Reports: No Symptoms Cardiovascular: Reports: No Symptoms Gastrointestinal: Reports: No Symptoms Genitourinary: Reports: No Symptoms Musculoskeletal: Reports: No Symptoms Skin: Reports: No Symptoms Neurological: Reports: No Symptoms Psychiatric: Reports: No Symptoms - Patient Data Vitals - Most Recent: Last Vital Signs Temp 36.9 C 06/26/17 01:50 Pulse 73 06/26/17 09:28 Resp 18 06/26/17 01:50 BP 99/78 06/26/17 09:28 Pulse Ox 100 06/26/17 01:50 Weight - Most Recent: 81.737 kg I&O - Last 24 hours: Intake & Output 06/25/17 06/26/17 06/26/17 22:59 06:59 14:59 Intake Total 1232 Balance 1232 Lab Results - Last 24 hrs: Laboratory Results - last 24 hr 06/26/17 06/26/17 06/26/17 Range/Units 04:30 07:30 07:30 WBC 9.36 (3.98-10.04) K/mm3 RBC 4.06 (3.98-5.22) M/mm3 Hgb 12.9 (11.2-15.7) gm/L Hct 37.8 (34.1-44.9) % MCV 93.1 (79.4-94.8) fl MCH 31.8 (25.6-32.2) pg MCHC 34.1 (32.2-35.5) g/dl RDW Std Deviation 45.4 (36.4-46.3) fL Plt Count 212 (182-369) K/mm3 MPV 11.6 (9.4-12.3) fl Neut % (Auto) 66.3 (34.0-71.1) % Lymph % (Auto) 22.5 (19.3-51.7) % [place] % (Auto) 7.6 (4.7-12.5) % Eos % (Auto) 3.2 (0.7-5.8) Baso % (Auto) 0.2 (0.1-1.2) % Neut # (Auto) 6.20 H (1.56-6.13) K/mm3 Lymph # (Auto) 2.11 (1.18-3.74) K/mm3 [place] # (Auto) 0.71 H (0.24-0.36) K/mm3 Eos # (Auto) 0.30 (0.04-0.36) K/mm3 Baso # (Auto) 0.02 (0.01-0.08) K/mm3 Sodium 143 (136-145) mEq/L Potassium 3.9 (3.5-5.1) mEq/L Chloride 108 H (98-107) mEq/L Carbon Dioxide 25 (21-32) mEq/L Anion Gap 13.9 (5-15) BUN 17 (7-18) mg/dL Creatinine 1.1 H (0.55-1.02) mg/dL Est Cr Clr Drug Dosing 33.74 mL/min Estimated GFR (MDRD) 48 (>60) mL/min BUN/Creatinine Ratio 15.5 (14-18) Glucose 104 (83-115) mg/dL Lactic Acid (0.4-2.0) mmol/L Calcium 9.4 (8.5-10.1) mg/dL Troponin I < 0.017 (0.00-0.056) ng/mL C-Reactive Protein < 0.2 (<1.0) mg/dL Mycoplasma pneumon IgM Negative (NEGATIVE) MRSA (PCR) Negative 06/26/17 Range/Units 07:30 WBC (3.98-10.04) K/mm3 RBC (3.98-5.22) M/mm3 Hgb (11.2-15.7) gm/L Hct (34.1-44.9) % MCV (79.4-94.8) fl MCH (25.6-32.2) pg MCHC (32.2-35.5) g/dl RDW Std Deviation (36.4-46.3) fL Plt Count (182-369) K/mm3 MPV (9.4-12.3) fl Neut % (Auto) (34.0-71.1) % Lymph % (Auto) (19.3-51.7) % [place] % (Auto) (4.7-12.5) % Eos % (Auto) (0.7-5.8) Baso % (Auto) (0.1-1.2) % Neut # (Auto) (1.56-6.13) K/mm3 Lymph # (Auto) (1.18-3.74) K/mm3 [place] # (Auto) (0.24-0.36) K/mm3 Eos # (Auto) (0.04-0.36) K/mm3 Baso # (Auto) (0.01-0.08) K/mm3 Sodium (136-145) mEq/L Potassium (3.5-5.1) mEq/L Chloride (98-107) mEq/L Carbon Dioxide (21-32) mEq/L Anion Gap (5-15) BUN (7-18) mg/dL Creatinine (0.55-1.02) mg/dL Est Cr Clr Drug Dosing mL/min Estimated GFR (MDRD) (>60) mL/min BUN/Creatinine Ratio (14-18) Glucose (83-115) mg/dL Lactic Acid 0.8 (0.4-2.0) mmol/L Calcium (8.5-10.1) mg/dL Troponin I (0.00-0.056) ng/mL C-Reactive Protein (<1.0) mg/dL Mycoplasma pneumon IgM (NEGATIVE) MRSA (PCR) Med Orders - Current: Current Medications Acetaminophen (Tylenol) 650 mg PO Q6H PRN PRN Reason: Pain Last Admin: 06/25/17 21:48 Dose: 650 mg Aspirin (Aspirin) 81 mg PO DAILY [facility] Last Admin: 06/26/17 09:28 Dose: 81 mg Levofloxacin/Dextrose 750 mg/ (Premix) 150 mls @ 100 mls/hr IV Q48H [facility] Stop: 06/27/17 12:59 Levothyroxine Sodium (Levothyroxine) 150 mcg PO ACBREAKFAST [facility] Last Admin: 06/26/17 05:41 Dose: 150 mcg Lorazepam (Ativan) 1 mg IVPUSH Q8H PRN PRN Reason: Anxiety Last Admin: 06/26/17 09:24 Dose: 1 mg Metoprolol Tartrate (Lopressor) 25 mg PO BID [facility] Last Admin: 06/26/17 09:28 Dose: 25 mg Olanzapine (Zyprexa) 15 mg PO BEDTIME [facility] Memantine Hcl 7 Mg (Xr (Namenda)) 0 each PO DAILY [facility] Last Admin: 06/26/17 09:30 Dose: Not Given Polyethylene Glycol (Miralax) 17 gm PO Q2D [facility] Last Admin: 06/26/17 09:34 Dose: 17 gm Simvastatin (Zocor) 5 mg PO BEDTIME [facility] Last Admin: 06/25/17 21:52 Dose: 5 mg Discontinued Medications Sodium Chloride (Normal Saline) 1,000 mls @ 100 mls/hr IV ASDIRECTED [facility] Last Admin: 06/25/17 21:54 Dose: 250 mls/hr Levofloxacin/Dextrose 750 mg/ (Premix) 150 mls @ 100 mls/hr IV ONETIME ONE Stop: 06/25/17 17:59 Last Admin: 06/25/17 16:38 Dose: 100 mls/hr Levofloxacin/Dextrose 750 mg/ (Premix) 150 mls @ 100 mls/hr IV Q48H [facility] Sodium Chloride (Normal Saline) 1,000 mls @ 100 mls/hr IV ASDIRECTED [facility] Last Admin: 06/25/17 23:20 Dose: 100 mls/hr Lorazepam (Ativan) 1 mg IVPUSH ONETIME ONE Stop: 06/25/17 14:10 Last Admin: 06/25/17 14:21 Dose: 0.5 mg Olanzapine (Zyprexa Zydis) 15 mg PO DAILY [facility] Polyethylene Glycol (Miralax) 17 gm PO DAILY [facility] - Exam Quality Assessment: Reports: DVT Prophylaxis General: Reports: Alert, Oriented, No Acute Distress HEENT: Reports: Pupils Equal, Pupils Reactive, EOMI Neck: Reports: Trachea Midline, No JVD Lungs: Reports: Normal Respiratory Effort Cardiovascular: Reports: Regular Rate, Regular Rhythm GI/Abdominal Exam: Normal Bowel Sounds, Soft, Non-Tender, No Organomegaly, No Distention (Female) Exam: Deferred Rectal (Female) Exam: Deferred Back Exam: Reports: Normal Inspection Extremities: Normal Inspection Skin: Reports: Warm Neurological: Reports: No New Focal Deficit Psy/Mental Status: Reports: Alert *Q Meaningful Use (DIS) - VTE *Q VTE Criteria *Q: - Stroke *Q Stroke Criteria *Q: - AMI *Q AMI Criteria *Q:
[2017-06-26] MEDS ORDERED: BISACODYL RECTAL PRN (11:56)
[2017-06-26] MEDS ORDERED: Sennosides 8.6 MG Tab PO PRN (11:56)
[2017-06-26] MEDS ORDERED: guaiFENesin/Dextromethorphan 100-10 MG/5 ML Soln 5 ML Cup PO PRN (11:56)
[2017-06-26] MEDS ORDERED: Calcium Carbonate 500 MG Tab.Chew PO PRN (11:56)
[2017-06-26] MEDS ORDERED: Mineral Oil/Petrolatum,White Crm 454 GM Jar TOP PRN (11:56)
[2017-06-26] MEDS ORDERED: Bisacodyl 5 MG Tab PO PRN (11:56)
[2017-06-26] MEDS ORDERED: Betamethasone Dipropionate/Clotrimazole 0.05-1% Crm 15 GM Tube TOP PRN (11:56)
[2017-06-26] MEDS ORDERED: Levofloxacin/Dextrose 5%-Water 750 MG in Premix Bag 1 BAG IV SCH (12:00)
[2017-06-26 12:44] VITALS: BP 139/77
[2017-06-26] MEDS ORDERED: [UNRECOGNIZED DRUG - OTHER] EYEBOTH SCH (13:00)
[2017-06-26] MEDS ORDERED: DEXTRAN EYEBOTH SCH (13:00)
[2017-06-26] MEDS ORDERED: BRIMONIDINE 0.1% EYEBOTH SCH (21:00)
[2017-06-26] MEDS ORDERED: Timolol Maleate 0.5% Ophth Soln 5 ML Bottle EYELF SCH (21:00)
[2017-06-26] MEDS ORDERED: OLANZapine 5 MG Tab PO SCH (21:00)
[2017-06-26] MEDS ORDERED: Latanoprost 0.005% Ophth Soln 2.5 ML Bottle EYEBOTH SCH (21:00)
[2017-06-26] MEDS ORDERED: Dorzolamide 2% Ophth Soln 10 ML Bottle EYELF SCH ×2 (21:00)
[2017-06-27] MEDS ORDERED: Furosemide 20 MG Tab PO SCH (09:00)
[2017-06-27] MEDS ORDERED: Levofloxacin 250 MG Tab PO SCH (10:00)
[2017-06-27] MEDS ORDERED: Levofloxacin/Dextrose 5%-Water 750 MG in Premix Bag 1 BAG IV SCH (16:30)
== END 2017-06-26 13:11 | DRG 690 ==
LOC: JD.ED 13:33 → JD.MS 17:32
PROVIDERS: ADMIT Internal Medicine Cardiovascular Disease; ATTEND Internal Medicine Cardiovascular Disease
DX: N39.0 Urinary tract infection, site not specified (principal); N17.9 Acute kidney failure, unspecified; S80.02XA Contusion of left knee, initial encounter; S40.012A Contusion of left shoulder, initial encounter; W19.XXXA Unspecified fall, initial encounter; Y92.10 Unspecified residential institution as the place of occurrence of the external cause; R53.1 Weakness; R41.82 Altered mental status, unspecified; G30.9 Alzheimer's disease, unspecified; F02.80 Dementia in other diseases classified elsewhere, unspecified severity, without behavioral disturbance, psychotic disturbance, mood disturbance, and anxiety; E86.0 Dehydration; I12.9 Hypertensive chronic kidney disease with stage 1 through stage 4 chronic kidney disease, or unspecified chronic kidney disease; E11.22 Type 2 diabetes mellitus with diabetic chronic kidney disease; N18.9 Chronic kidney disease, unspecified; Z87.891 Personal history of nicotine dependence; K21.9 Gastro-esophageal reflux disease without esophagitis; E78.00 Pure hypercholesterolemia, unspecified; F20.9 Schizophrenia, unspecified; E03.9 Hypothyroidism, unspecified; M10.9 Gout, unspecified; E66.9 Obesity, unspecified; Z68.31 Body mass index [BMI] 31.0-31.9, adult; H04.129 Dry eye syndrome of unspecified lacrimal gland; H40.9 Unspecified glaucoma; Z88.0 Allergy status to penicillin; Z88.8 Allergy status to other drugs, medicaments and biological substances; Z79.82 Long term (current) use of aspirin; Z79.899 Other long term (current) drug therapy
CPT/HCPCS: 36415; 71045; 73030; 73560; 80053; 81001; 82553; 82962; 83605; 83735; 83880; 84484; 85025; 85610; 85652; 86140; 87040 ×2; 87086; 87804 ×2; 93005; 96361; 96365; 96375; 99285; J1956; J2060; J7040; 70450; 70450-26; 80048; 86738; 87088; 87186; 87641; 99284; A9270-GY

== ENCOUNTER 2018-11-20 16:48 | Emergency (ER) | payer MEDICARE, MEDICAID ==
[2018-11-20 16:59] VITALS: BP 131/67
[2018-11-20] MEDS ORDERED: Oxymetazoline 0.05% Nasal Spray 30 ML Bottle NAS ONE (17:12)
--- NOTE | 2018-11-20 17:24 | EDM.PDOC ---
ED HPI GENERAL MEDICAL PROBLEM - General Chief Complaint: ENT Problem Stated Complaint: NOSE BLEED Time Seen by Provider: 11/20/18 17:01 Source of Information: Reports: Patient, Family, RN Notes Reviewed History Limitations: Reports: No Limitations - History of Present Illness INITIAL COMMENTS - FREE TEXT/NARRATIVE: Patient is a 83-year-old female who presents to the ED for evaluation of a nosebleed. The patient is a resident of the [facility]. The nose bleed developed around 3 or 3:15 PM this afternoon, this came on sudden and has not let up since. They have packed the nostril with gauze around 4 times, however it does seem to keep seeping. The bleeding is coming from the right nostril. The patient is only on a small baby aspirin daily. - Related Data Allergies Allergy/AdvReac Type Severity Reaction Status Date / Time atorvastatin Allergy Other Verified 11/20/18 16:59 codeine Allergy Other Verified 11/20/18 16:59 losartan Allergy Other Verified 11/20/18 16:59 morphine Allergy Other Verified 11/20/18 16:59 Penicillins Allergy Other Verified 11/20/18 16:59 Home Meds: Home Meds Acetaminophen [Tylenol] 650 mg PO Q6H PRN 06/25/17 [History] Aspirin 81 mg PO DAILY 06/25/17 [History] Levothyroxine 150 mcg PO DAILY 06/25/17 [History] Memantine HCl [Namenda Xr] 7 mg PO DAILY 06/25/17 [History] OLANZapine [ZyPREXA Zydis] 15 mg PO BEDTIME 06/25/17 [History] Latanoprost [Xalatan 0.005% Ophth Soln] 1 drop EYEBOTH BEDTIME 06/26/17 [History ] Polyethylene Glycol 3350 [MiraLAX] 17 gm PO Q2D packet 06/26/17 [Rx] Calcium Carbonate [Tums] 200 mg PO ASDIRECTED 03/31/18 [History] Citalopram Hydrobromide [Celexa] 10 mg PO BEDTIME 03/31/18 [History] Dorzolamide/Timolol [Cosopt 2%-0.5% Ophth Soln] 1 drop EYEBOTH BID 03/31/18 [ History] Melatonin 3 mg PO BEDTIME 03/31/18 [History] Naproxen Sodium [Aleve] 220 mg PO BID 03/31/18 [History] OLANZapine [Olanzapine] 5 mg PO DAILY PRN 03/31/18 [History] Cholecalciferol (Vitamin D3) [Vitamin D3] 1,000 unit PO DAILY #30 tablet [Rx] Furosemide [Lasix] 40 mg PO DAILY #0 04/03/18 [Rx] Magnesium Hydroxide [Milk of Magnesia] 5 ml PO TID PRN 11/20/18 [History] Trolamine Salicylate/Aloe Vera [Aspercreme 10%] 1 applic TOP BID PRN 11/20/18 [ History] guaiFENesin [Mucinex] 600 mg PO BID 11/20/18 [History] Past Medical History HEENT History: Reports: Glaucoma, Impaired Vision, Other (See Below) Other HEENT History: dry eyes syndrome, wears eyeglasses. 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: Musculoskeletal History: Reports: Gout Other Musculoskeletal History: uses walker Neurological History: Reports: Alzheimers Disease, Other (See Below) Other Neuro History: encephalopathy, AMS Psychiatric History: Reports: Alzheimers Disease, Dementia, Schizophrenia, Other (See Below) Other Psychiatric History: delirium Endocrine/Metabolic History: Reports: Diabetes, Type II, Hypothyroidism, Obesity /BMI 30+ Other Endocrine/Metabolic History: hx hyperglycemic--hyperosmolar coma ([facility]) Hematologic History: Reports: None Immunologic History: Reports: None Oncologic (Cancer) History: Reports: None Dermatologic History: Reports: None - Infectious Disease History Infectious Disease History: Reports: Other (See Below) Other Infectious Disease History: none per record. 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: Retired ED ROS ENT - Review of Systems Review Of Systems: See Below Constitutional: Reports: No Symptoms HEENT: Reports: Nosebleed Respiratory: Reports: No Symptoms Cardiovascular: Reports: No Symptoms Endocrine: Reports: No Symptoms GI/Abdominal: Reports: No Symptoms : Reports: No Symptoms Musculoskeletal: Reports: No Symptoms Skin: Reports: No Symptoms Neurological: Reports: No Symptoms Psychiatric: Reports: No Symptoms Hematologic/Lymphatic: Reports: No Symptoms Immunologic: Reports: No Symptoms ED EXAM, ENT - Physical Exam Exam: See Below Exam Limited By: No Limitations General Appearance: Alert, WD/WN, No Apparent Distress Eye Exam: Bilateral Eye: Normal Inspection Ears: Normal External Exam, Normal TMs Nose: Normal Inspection, Active Bleeding (small area of non-active bleeding on anterior R medial nare, and 1 area that is bounding with pulses further back, suspicious to re-bleed.) Mouth/Throat: Normal Inspection, Normal Oropharynx (dried blood noted to tongue and posterior pharynx), Normal Teeth Head: Atraumatic, Normocephalic Neck: Normal Inspection Respiratory/Chest: No Respiratory Distress, Lungs Clear, Normal Breath Sounds, No Accessory Muscle Use, Chest Non-Tender Cardiovascular: Normal Peripheral Pulses, Regular Rate, Rhythm, No Murmur Extremities: Normal Inspection, Normal Capillary Refill Neurological: Alert, Oriented, Normal Cognition, No Motor/Sensory Deficits Psychiatric: Normal Affect, Normal Mood Skin: Warm, Dry, Intact, Normal Color, No Rash Course - Vital Signs Last Recorded V/S: Last Vital Signs Temp 97.3 F 11/20/18 16:56 Pulse 64 11/20/18 16:56 Resp 16 11/20/18 16:56 BP 131/67 11/20/18 16:56 Pulse Ox 97 11/20/18 16:56 - Orders/Labs/Meds Meds: Medications Discontinued Medications Generic Name Dose Route Start Last Admin Trade Name Freq PRN Reason Stop Dose Admin Cocaine HCl 1 ml 11/20/18 17:11 11/20/18 17:23 Cocaine Hcl TOP 11/20/18 17:12 1 ml ONETIME ONE Administration Oxymetazoline HCl 1 ml 11/20/18 17:12 11/20/18 17:23 Nasal Decongestant [place] LUCIO 11/20/18 17:13 1 spray ONETIME ONE Administration - Re-Assessments/Exams Free Text/Narrative Re-Assessment/Exam: 11/20/18 17:33 Patient presents to the ED for the evaluation of nosebleed. The gauze did come out okay and there area was not bleeding on first exam, as I went to get the silver nitrate the area started actively bleeding again. I have ordered topical cocaine and Afrin and with the help of Dr. Avery, have packed the nose at 1730, this will be in place for 20 minutes and we will reassess after that. 11/20/18 17:40 RN informs me that the bleeding is starting out the other nostril now, and into back of throat. I have packed the other nostril with the remaining tube gauze soaked in the cocaine/afrin mix. Pt has been given ice chips to suck on to try and help alleviate the bleeding. 11/20/18 18:08 The cocaine/afrin packing was taken out with a resultant large clot. There is still an area of active arterial bleeding. This was assessed by myself and Dr. Avery, an Anterior Rhino rocket was placed and will need to stay in for 48 hours. After this time, she will need to be assessed by an ENT Departure - Departure Time of Disposition: 18:15 Disposition: DC/Tfer to SNF 03 Condition: Fair Clinical Impression: Epistaxis - Discharge Information *PRESCRIPTION DRUG MONITORING PROGRAM REVIEWED*: No *COPY OF PRESCRIPTION DRUG MONITORING REPORT IN PATIENT HAN: No Instructions: Nosebleed, [id number] Referrals: Anuj Vaz MD [Primary Care Provider] - Forms: ED Department Discharge Additional Instructions: You have been evaluated in the ED today for your nosebleed. Packing was attempted first, however the bleeding persisted, you were ultimately treated with a Rhino Rocket to help alleviate the bleeding. This will need to be left in place for 48 hours. You will need to be seen by your primary care provider, so that they may take the Rhino rocket out. You may take 500mg Tylenol or 600mg ibuprofen Q6H PRN for pain relief. Please return to the ED if the bleeding re-occurs as the rhino rocket will need to be taken out and you will need to re-assessed. Please return to the ED if your symptoms should change or worsen.
== END 2018-11-20 18:45 ==
LOC: JD.ED 16:48
DX: R04.0 Epistaxis (principal); I10 Essential (primary) hypertension; G30.9 Alzheimer's disease, unspecified; F02.80 Dementia in other diseases classified elsewhere, unspecified severity, without behavioral disturbance, psychotic disturbance, mood disturbance, and anxiety; E11.9 Type 2 diabetes mellitus without complications; M10.9 Gout, unspecified; E03.9 Hypothyroidism, unspecified; E66.9 Obesity, unspecified; Z79.899 Other long term (current) drug therapy; Z79.82 Long term (current) use of aspirin; Z88.0 Allergy status to penicillin; Z88.5 Allergy status to narcotic agent; Z88.8 Allergy status to other drugs, medicaments and biological substances
CPT/HCPCS: 30903; 99283; A9270; 99282

== ENCOUNTER 2018-11-24 01:20 | Observation (INO) | payer MEDICARE, MEDICAID ==
--- NOTE | 2018-11-24 02:31 | EDM.PDOC ---
ED HPI GENERAL MEDICAL PROBLEM - General Chief Complaint: ENT Problem Stated Complaint: [facility] Time Seen by Provider: 11/24/18 01:54 Source of Information: Reports: EMS, Retirement Records History Limitations: Reports: Altered Mental Status - History of Present Illness INITIAL COMMENTS - FREE TEXT/NARRATIVE: This is a 83-year-old female. She was brought to the ER by ambulance from the [facility]. On Monday she was seen here for epistaxis from the right nasal passage and on Monday the Rhino Rocket was removed at the senior care. This evening she started having bleeding from the right nasal passage again for which they put in a tampon and called the ambulance. The patient has been gurgling blood since the onset of the nosebleed and the tampon fell out prior to making it to the ER. When she arrived she had marked gurgling and blood in the back of her throat she was complaining of inability to breathe and we began to suction her immediately and I placed another Rhino Rocket 7.5 cm in the right nasal passage coated with cocaine and inflated it until the bleeding stopped. We were able that time to clean out the blood clot from the back of her throat and she was able to breathe easier. Her pulse ox did drop into the 70s and she first arrived but it's now with a nonrebreather up into the upper 90s. The patient is a DNR and has dementia and multiple other medical problems. - Related Data Allergies Allergy/AdvReac Type Severity Reaction Status Date / Time atorvastatin Allergy Other Verified 11/24/18 01:36 codeine Allergy Other Verified 11/24/18 01:36 losartan Allergy Other Verified 11/24/18 01:36 morphine Allergy Other Verified 11/24/18 01:36 Penicillins Allergy Other Verified 11/24/18 01:36 Home Meds: Home Meds Acetaminophen [Tylenol] 650 mg PO Q6H PRN 06/25/17 [History] Aspirin 81 mg PO DAILY 06/25/17 [History] Levothyroxine 150 mcg PO DAILY 06/25/17 [History] Memantine HCl [Namenda Xr] 7 mg PO DAILY 06/25/17 [History] OLANZapine [ZyPREXA Zydis] 20 mg PO BEDTIME 06/25/17 [History] Latanoprost [Xalatan 0.005% Ophth Soln] 1 drop EYEBOTH BEDTIME 06/26/17 [History ] Polyethylene Glycol 3350 [MiraLAX] 17 gm PO Q2D packet 06/26/17 [Rx] Calcium Carbonate [Tums] 200 mg PO ASDIRECTED PRN 03/31/18 [History] Citalopram Hydrobromide [Celexa] 10 mg PO BEDTIME 03/31/18 [History] Dorzolamide/Timolol [Cosopt 2%-0.5% Ophth Soln] 1 drop EYEBOTH BID 03/31/18 [ History] Melatonin 3 mg PO BEDTIME 03/31/18 [History] Naproxen Sodium [Aleve] 220 mg PO BID 03/31/18 [History] OLANZapine [Olanzapine] 2.5 mg PO DAILY PRN 03/31/18 [History] Cholecalciferol (Vitamin D3) [Vitamin D3] 1,000 unit PO DAILY #30 tablet [Rx] Furosemide [Lasix] 40 mg PO DAILY #0 04/03/18 [Rx] Magnesium Hydroxide [Milk of Magnesia] 5 ml PO TID PRN 11/20/18 [History] Trolamine Salicylate/Aloe Vera [Aspercreme 10%] 1 applic TOP BID PRN 11/20/18 [ History] guaiFENesin [Mucinex] 600 mg PO BID PRN 11/20/18 [History] Past Medical History HEENT History: Reports: Glaucoma, Impaired Vision, Other (See Below) Other HEENT History: dry eyes syndrome, wears eyeglasses. 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: Musculoskeletal History: Reports: Gout Other Musculoskeletal History: uses walker Neurological History: Reports: Alzheimers Disease, Other (See Below) Other Neuro History: encephalopathy, AMS Psychiatric History: Reports: Alzheimers Disease, Dementia, Schizophrenia, Other (See Below) Other Psychiatric History: delirium Endocrine/Metabolic History: Reports: Diabetes, Type II, Hypothyroidism, Obesity /BMI 30+ Other Endocrine/Metabolic History: hx hyperglycemic--hyperosmolar coma ([facility]) Hematologic History: Reports: None Immunologic History: Reports: None Oncologic (Cancer) History: Reports: None Dermatologic History: Reports: None - Infectious Disease History Infectious Disease History: Reports: Other (See Below) Other Infectious Disease History: none per record. 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: Retired ED ROS ENT - Review of Systems Review Of Systems: Unable To Obtain HEENT: Reports: Other (Epistaxis) Respiratory: Reports: Shortness of Breath ED EXAM, ENT - Physical Exam Exam: See Below Exam Limited By: Altered Mental Status General Appearance: Alert, Anxious, Moderate Distress Eye Exam: Bilateral Eye: Normal Inspection Ears: Normal External Exam Nose: Active Bleeding, Other (She is noted to have active bleeding from the right and the left nasal passage as well as marked congestion of blood in her mouth and her oral pharynx with gurgling, she is complaining of inability to breathe) Mouth/Throat: Other (Marked blood in the mouth) Head: Normocephalic Neck: Supple Respiratory/Chest: Respiratory Distress, Rhonchi, Wheezing. No: Stridor Cardiovascular: Regular Rate, Rhythm GI/Abdominal: Soft, Non-Tender Back: Decreased Range of Motion Extremities: Normal Inspection, Other (Minimal peripheral edema) Neurological: Alert, Disoriented. No: Oriented Psychiatric: Anxious Skin: Warm, Dry Course - Vital Signs Last Recorded V/S: Last Vital Signs Temp 97.4 F 11/24/18 01:36 Pulse 79 11/24/18 01:36 Resp 20 11/24/18 01:36 BP 134/66 11/24/18 01:36 Pulse Ox 71 L 11/24/18 01:36 - Orders/Labs/Meds Orders: Active Orders 24 hr Category Date Time Status Chest 1V Frontal [CR] Stat Exams 11/24/18 02:06 Taken Labs: Laboratory Tests 11/24/18 11/24/18 Range/Units 01:46 01:46 WBC 9.71 (3.98-10.04) K/mm3 RBC 3.46 L (3.98-5.22) M/mm3 Hgb 10.8 L D (11.2-15.7) gm/L Hct 33.1 L (34.1-44.9) % MCV 95.7 H D (79.4-94.8) fl MCH 31.2 (25.6-32.2) pg MCHC 32.6 (32.2-35.5) g/dl RDW Std Deviation 45.1 (36.4-46.3) fL Plt Count 222 (182-369) K/mm3 MPV 11.3 (9.4-12.3) fl Neut % (Auto) 54.6 (34.0-71.1) % Lymph % (Auto) 35.2 (19.3-51.7) % Warrick % (Auto) 7.2 (4.7-12.5) % Eos % (Auto) 2.6 (0.7-5.8) Baso % (Auto) 0.2 (0.1-1.2) % Neut # (Auto) 5.30 (1.56-6.13) K/mm3 Lymph # (Auto) 3.42 (1.18-3.74) K/mm3 Warrick # (Auto) 0.70 H (0.24-0.36) K/mm3 Eos # (Auto) 0.25 (0.04-0.36) K/mm3 Baso # (Auto) 0.02 (0.01-0.08) K/mm3 Sodium 143 (136-145) mEq/L Potassium 3.5 (3.5-5.1) mEq/L Chloride 106 (98-107) mEq/L Carbon Dioxide 27 (21-32) mEq/L Anion Gap 13.5 (5-15) BUN 66 H D (7-18) mg/dL Creatinine 1.8 H (0.55-1.02) mg/dL Est Cr Clr Drug Dosing TNP Estimated GFR (MDRD) 27 (>60) mL/min BUN/Creatinine Ratio 36.7 H (14-18) Glucose 177 H (83-115) mg/dL Calcium 9.0 (8.5-10.1) mg/dL Total Bilirubin 0.4 (0.2-1.0) mg/dL AST 14 L (15-37) U/L ALT 15 (14-59) U/L Alkaline Phosphatase 72 (46-116) U/L Total Protein 7.1 (6.4-8.2) g/dl Albumin 3.4 (3.4-5.0) g/dl Globulin 3.7 gm/dL Albumin/Globulin Ratio 0.9 L (1-2) - Radiology Interpretation Free Text/Narrative:: Chest x-ray suggested she might have aspirated into the right lung. No other acute findings. - Re-Assessments/Exams Free Text/Narrative Re-Assessment/Exam: 11/24/18 02:39 Once we are able to get the Rhino Rocket in bleeding began to subside were able to clear her airway of the blood and the blood clots. Once she was on a nonrebreather she is going at 100% pulse ox. Listening to her lungs again after she calmed down she does have crackles noted in the lung van anteriorly in the bases. 11/24/18 03:03 Her most recent hemoglobin that I can find was from March 2018 and it was 12.5 and I spoke to Dr. Andrews and he will admit to observation with further evaluation and treatment. Due to the possibility of aspiration of blood will start her on some Rocephin as well. 11/24/18 03:07 With the nonrebreather pulse ox remained 100% and we removed the nonrebreather to room air and she is now running in the low 90s for the pulse ox. She seems to be more responsive now and then she was. Departure - Departure Time of Disposition: 03:06 Disposition: Refer to Observation Condition: Poor Clinical Impression: Acute posterior epistaxis, Aspiration of blood, DNR (do not resuscitate) Dementia Qualifiers: Dementia type: unspecified type Dementia behavioral disturbance: without behavioral disturbance Qualified Code(s): F03.90 - Unspecified dementia without behavioral disturbance - Discharge Information ED Communication - ED Communication Date/Time Date: 11/24/18 Time Called: 03:07 - Discussed Case With (1) Discussed Case With (1): Admitting Provider Person/s Notified (1): Christian Alvares (He agrees to admit to observation) - My Orders Last 24 Hours: My Active Orders 11/24/18 02:06 Chest 1V Frontal [CR] Stat - Assessment/Plan Last 24 Hours: My Active Orders 11/24/18 02:06 Chest 1V Frontal [CR] Stat
[2018-11-24] MEDS ORDERED: cefTRIAXone 1 GM in Sodium Chloride 0.9% 100 ML IV ONE (03:04)
[2018-11-24] MEDS ORDERED: Sodium Chloride 0.9% 1,000 ML IV SCH ×3 (03:15→08:45)
[2018-11-24 08:16] VITALS: BP 145/85
--- NOTE | 2018-11-24 08:37 | PCM.HP ---
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 She reportedly had experienced a rather severe nosebleed last Monday and a Rhino Rocket was placed. This was then removed at the [facility] on Monday and she began having bleeding again yesterday late evening. A tampon was placed and they called the ambulance. They report she been gurgling blood since the onset of the nosebleed in the tampon had fallen out prior to arrival in the ED. She was noted to have gurgling sound blood in the back of her throat and complaining of difficulty breathing. They suctioned her and place another 7.5 cm Rhino Rocket. Code with cocaineand his legs until bleeding stops. There was able to remove blood clots back or throat she was able to breathe easier. His noted at oxygen saturation 70s on arrival and with a nonrebreather she went back up into the 90s. In the ED temperature is 97.4. Pulse 79. Respirations 20. Blood pressure 1 3466. Pulse ox 71%. Labs are obtained: WBC is normal at 9.71. Hemoglobin 10.8. Hematocrit 33.1. She is macrocytic. Pulse are good at 222,000. Neutrophils are normal at 54.6%. Sodium 143. Potassium 3.5. Chloride 106. Her minoxidil 27. Anion gap 13.5. BUN is high at 66. Creatinine 1.8. GFR is 27. Glucose 177. Calcium 9.0. AST is 14, ALT 15, alkaline phosphatase 72. Protein 7.1. Nonrebreather was discontinued and she was noted to be in the low 90s for pulse ox. she is given Rocephin for concern over aspiration as noted. She carries a history of: glaucoma, impaired vision, dry syndrome, blind right eye, HLD, HTN, edema, chronic constipation, GERD, dysphagia, renal disease, hyperglycemic hyperosmolar coma, gout, Alzheimer's disease,dementia, schizophrenia, delirium, type II DM, hypothyroidism, obesity. She was never a smoker. She resides in the [facility]. She is a DNR. Her PCP is Dr. Andrews. - Related Data Allergies/Adverse Reactions: Allergies Allergy/AdvReac Type Severity Reaction Status Date / Time atorvastatin Allergy Other Verified 11/24/18 01:36 codeine Allergy Other Verified 11/24/18 01:36 losartan Allergy Other Verified 11/24/18 01:36 morphine Allergy Other Verified 11/24/18 01:36 Penicillins Allergy Other Verified 11/24/18 01:36 Home Medications: Home Meds Acetaminophen [Tylenol] 650 mg PO Q6H PRN 06/25/17 [History] Levothyroxine 150 mcg PO DAILY 06/25/17 [History] Memantine HCl [Namenda Xr] 7 mg PO DAILY 06/25/17 [History] OLANZapine [ZyPREXA Zydis] 20 mg PO BEDTIME 06/25/17 [History] Latanoprost [Xalatan 0.005% Ophth Soln] 1 drop EYEBOTH BEDTIME 06/26/17 [History ] Polyethylene Glycol 3350 [MiraLAX] 17 gm PO Q2D packet 06/26/17 [Rx] Calcium Carbonate [Tums] 200 mg PO ASDIRECTED PRN 03/31/18 [History] Citalopram Hydrobromide [Celexa] 10 mg PO BEDTIME 03/31/18 [History] Dorzolamide/Timolol [Cosopt 2%-0.5% Ophth Soln] 1 drop EYEBOTH BID 03/31/18 [ History] Melatonin 3 mg PO BEDTIME 03/31/18 [History] OLANZapine [Olanzapine] 2.5 mg PO DAILY 03/31/18 [History] Cholecalciferol (Vitamin D3) [Vitamin D3] 1,000 unit PO DAILY #30 tablet [Rx] Furosemide [Lasix] 40 mg PO DAILY #0 04/03/18 [Rx] Magnesium Hydroxide [Milk of Magnesia] 5 ml PO DAILY PRN 11/20/18 [History] Trolamine Salicylate/Aloe Vera [Aspercreme 10%] 1 applic TOP BID PRN 11/20/18 [ History] guaiFENesin [Mucinex] 600 mg PO BID PRN 11/20/18 [History] Cephalexin [Keflex] 500 mg PO BID 7 Days #14 capsule 11/24/18 [Rx] Past Medical History HEENT History: Reports: Epistaxis, Glaucoma, Impaired Vision, Other (See Below) Other HEENT History: dry eyes syndrome, wears eyeglasses, left eye corneal ulcer Cardiovascular History: Reports: High Cholesterol, Hypertension Other Cardiovascular History: edema Respiratory History: Reports: None Gastrointestinal History: Reports: Chronic Constipation, GERD Other Gastrointestinal History: dysphagia Genitourinary History: Reports: Renal Disease Other Genitourinary History: hx hyperglycemic--hyperosmolar coma ([facility]) 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: Musculoskeletal History: Reports: Gout Other Musculoskeletal History: uses walker Neurological History: Reports: Alzheimers Disease, Other (See Below) Other Neuro History: encephalopathy, AMS Psychiatric History: Reports: Alzheimers Disease, Dementia, Depression, Schizophrenia, Other (See Below) Other Psychiatric History: delirium Endocrine/Metabolic History: Reports: Diabetes, Type II, Hypothyroidism, Obesity /BMI 30+ Other Endocrine/Metabolic History: hx hyperglycemic--hyperosmolar coma ([facility]) Hematologic History: Reports: Other (See Below) Other Hematologic History: vitamin D deficiency Immunologic History: Reports: None Oncologic (Cancer) History: Reports: None Dermatologic History: Reports: Other (See Below) Other Dermatologic History: xerosis cutis, corns and callosities - Infectious Disease History Infectious Disease History: Reports: Other (See Below) Other Infectious Disease History: unknown-patient confused and family not present. - Past Surgical History Head Surgeries/Procedures: Reports: None HEENT Surgical History: Reports: Other (See Below) Other HEENT Surgeries/Procedures: unknown Cardiovascular Surgical History: Reports: Other (See Below) Other Cardiovascular Surgeries/Procedures: unknown GI Surgical History: Reports: Other (See Below) Other GI Surgeries/Procedures: unknown Female Surgical History: Reports: Other (See Below) Other Female Surgeries/Procedures: unknown Endocrine Surgical History: Reports: Other (See Below) Other Endocrine Surgeries/Procedures: unknown Neurological Surgical History: Reports: None Social & Family History - Family History Family Medical History: Noncontributory - Tobacco Use Smoking Status *Q: Unknown Ever Smoked Second Hand Smoke Exposure: No - Caffeine Use Caffeine Use: Reports: Other Caffeine Use Comment: unknown-patient confused - Recreational Drug Use Recreational Drug Use: No - Living Situation & Occupation Living situation: Reports: Extended Care Facility (Currently living in the [facility]) Occupation: Retired H&P Review of Systems - Review of Systems: Review Of Systems: Unable To Obtain Review of Systems Comment:: unable to obtain review of systems as patient is very confused and accurate ROS cannot be reliably obtained. Exam - Exam Exam: See Below - Vital Signs Vital Signs: Last Vital Signs Temp 97.3 F 11/24/18 07:57 Pulse 70 11/24/18 07:34 Resp 16 11/24/18 07:34 BP 145/85 H 11/24/18 07:41 Pulse Ox 98 11/24/18 07:34 Weight: 189 lb 8 oz - Exam Quality Assessment: DVT Prophylaxis General: Alert, Cooperative (somewhat ). No: Oriented HEENT: Conjunctiva Clear, EACs Clear, Hearing Intact, Mucosa Moist & [place], Other (Rhino Rocket in place in right nare. No active bleeding noted. ) Neck: Supple, Trachea Midline Lungs: Normal Respiratory Effort, Crackles (mild right). No: Rhonchi, Wheezing Cardiovascular: Regular Rate, Regular Rhythm GI/Abdominal Exam: Normal Bowel Sounds, Soft, Non-Tender, No Distention, No Abnormal Bruit (Female) Exam: Deferred Rectal (Female) Exam: Deferred Back Exam: Normal Inspection, Full Range of Motion Extremities: Normal Inspection Skin: Warm, Dry, Intact Neuro Extensive - Mental Status: Alert, Other (Very confused. Difficult to redirect. ) - Patient Data Lab Results Last 24 hrs: Laboratory Results - last 24 hr 11/24/18 11/24/18 11/24/18 Range/Units 01:46 01:46 05:20 WBC 9.71 9.22 (3.98-10.04) K/mm3 RBC 3.46 L 3.35 L (3.98-5.22) M/mm3 Hgb 10.8 L D 10.4 L (11.2-15.7) gm/L Hct 33.1 L 31.9 L (34.1-44.9) % MCV 95.7 H D 95.2 H (79.4-94.8) fl MCH 31.2 31.0 (25.6-32.2) pg MCHC 32.6 32.6 (32.2-35.5) g/dl RDW Std Deviation 45.1 45.2 (36.4-46.3) fL Plt Count 222 200 (182-369) K/mm3 MPV 11.3 11.2 (9.4-12.3) fl Neut % (Auto) 54.6 69.2 (34.0-71.1) % Lymph % (Auto) 35.2 23.9 (19.3-51.7) % [place] % (Auto) 7.2 5.7 (4.7-12.5) % Eos % (Auto) 2.6 1.0 (0.7-5.8) Baso % (Auto) 0.2 0.1 (0.1-1.2) % Neut # (Auto) 5.30 6.38 H (1.56-6.13) K/mm3 Lymph # (Auto) 3.42 2.20 (1.18-3.74) K/mm3 [place] # (Auto) 0.70 H 0.53 H (0.24-0.36) K/mm3 Eos # (Auto) 0.25 0.09 (0.04-0.36) K/mm3 Baso # (Auto) 0.02 0.01 (0.01-0.08) K/mm3 Sodium 143 (136-145) mEq/L Potassium 3.5 (3.5-5.1) mEq/L Chloride 106 (98-107) mEq/L Carbon Dioxide 27 (21-32) mEq/L Anion Gap 13.5 (5-15) BUN 66 H D (7-18) mg/dL Creatinine 1.8 H (0.55-1.02) mg/dL Est Cr Clr Drug Dosing TNP Estimated GFR (MDRD) 27 (>60) mL/min BUN/Creatinine Ratio 36.7 H (14-18) Glucose 177 H (83-115) mg/dL Calcium 9.0 (8.5-10.1) mg/dL Total Bilirubin 0.4 (0.2-1.0) mg/dL AST 14 L (15-37) U/L ALT 15 (14-59) U/L Alkaline Phosphatase 72 (46-116) U/L Total Protein 7.1 (6.4-8.2) g/dl Albumin 3.4 (3.4-5.0) g/dl Globulin 3.7 gm/dL Albumin/Globulin Ratio 0.9 L (1-2) 11/24/18 Range/Units 05:20 WBC (3.98-10.04) K/mm3 RBC (3.98-5.22) M/mm3 Hgb (11.2-15.7) gm/L Hct (34.1-44.9) % MCV (79.4-94.8) fl MCH (25.6-32.2) pg MCHC (32.2-35.5) g/dl RDW Std Deviation (36.4-46.3) fL Plt Count (182-369) K/mm3 MPV (9.4-12.3) fl Neut % (Auto) (34.0-71.1) % Lymph % (Auto) (19.3-51.7) % [place] % (Auto) (4.7-12.5) % Eos % (Auto) (0.7-5.8) Baso % (Auto) (0.1-1.2) % Neut # (Auto) (1.56-6.13) K/mm3 Lymph # (Auto) (1.18-3.74) K/mm3 [place] # (Auto) (0.24-0.36) K/mm3 Eos # (Auto) (0.04-0.36) K/mm3 Baso # (Auto) (0.01-0.08) K/mm3 Sodium 144 (136-145) mEq/L Potassium 3.7 (3.5-5.1) mEq/L Chloride 106 (98-107) mEq/L Carbon Dioxide 26 (21-32) mEq/L Anion Gap 15.7 H (5-15) BUN 67 H (7-18) mg/dL Creatinine 1.6 H (0.55-1.02) mg/dL Est Cr Clr Drug Dosing 23.81 Estimated GFR (MDRD) 31 (>60) mL/min BUN/Creatinine Ratio 41.9 H (14-18) Glucose 147 H (83-115) mg/dL Calcium 9.0 (8.5-10.1) mg/dL Total Bilirubin (0.2-1.0) mg/dL AST (15-37) U/L ALT (14-59) U/L Alkaline Phosphatase (46-116) U/L Total Protein (6.4-8.2) g/dl Albumin (3.4-5.0) g/dl Globulin gm/dL Albumin/Globulin Ratio (1-2) Result Diagrams: 11/24/18 05:20 11/24/18 05:20 - Problem List (1) Acute posterior epistaxis SNOMED Code(s): 183236500, 839537411 ICD Code: R04.0 - EPISTAXIS Status: Acute Priority: High Current Visit : Yes (2) Aspiration of blood SNOMED Code(s): 83277669 ICD Code: R09.89 - OTH SYMPTOMS AND SIGNS INVOLVING THE CIRC AND RESP SYSTEMS Status: Acute Priority: High Current Visit: Yes (3) DNR (do not resuscitate) Status: Chronic Priority: Medium Current Visit: Yes (4) Dementia SNOMED Code(s): 46959528 ICD Code: F03.90 - UNSPECIFIED DEMENTIA WITHOUT BEHAVIORAL DISTURBANCE Status: Chronic Priority: High Current Visit: Yes Qualifiers: Dementia type: unspecified type Dementia behavioral disturbance: without behavioral disturbance Qualified Code(s): F03.90 - Unspecified dementia without behavioral disturbance Problem List Initiated/Reviewed/Updated: Yes Orders Last 24hrs: Active Orders 24 hr Category Date Time Status Patient Status [ADT] Routine ADT 11/24/18 03:41 Active Up With Assistance [RC] Care 11/24/18 04:57 Active Clear Liquid Diet [DIET] Diet 11/24/18 Breakfast Active CXR [Chest 2V] [CR] Routine Exams 11/24/18 08:00 Ordered Chest 1V Frontal [CR] Stat Exams 11/24/18 02:06 Taken METH-RESIST S.AUR,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 -Was seen past Monday in ED for similar symptoms. Rhino Rocket placed and removed Monday -Rhino Rocket replaced by ED provider -No obvious bleeding -Discussed with Dr. Andrews. Recommends Rhino Rocket remain in place for 5 days total -Hgb has remained stable Possible Aspiration PNA -Noted to have dyspnea, oxygen saturations in the 70s, and significant blood in her throat. -CXR in ED shows possible aspiration in right lung. -Repeat CXR obtained today - pending formal read. -No leukocytosis today. -No fever, Oxygen saturations in upper 90s on room air. -Rocephin given in ED -Will switch to 7 days 500mg BID Keflex with first dose 11/25/18 -Significant dementia makes obtaining symptoms from patient difficult. Chronic: glaucoma impaired vision dry eye syndrome blind right eye HLD HTN edema chronic constipation GERD dysphagia renal disease Hx/o hyperglycemic hyperosmolar coma gout Alzheimer's disease dementia schizophrenia delirium type II DM hypothyroidism obesity Plan: Admit to medical floor - observation status Other orders as indicated above Home medications as ordered Routine AM labs Code status: DNR; PCP: Dr. Andrews
[2018-11-24] MEDS ORDERED: guaiFENesin 600 MG Tab.ER PO PRN (08:38)
[2018-11-24] MEDS ORDERED: Non-Formulary Medication 1 Each (Trolamine Salicylate/Aloe Vera 1 APPLIC) TOP PRN (08:38)
[2018-11-24] MEDS ORDERED: Magnesium Hydroxide 400 MG/5 ML Susp 30 ML Cup PO PRN (08:38)
[2018-11-24] MEDS ORDERED: Albuterol/Ipratropium 3.0-0.5 MG/3 ML Neb Soln NEB PRN (08:42)
[2018-11-24] MEDS ORDERED: Acetaminophen 325 MG Tab PO PRN (08:42)
--- NOTE | 2018-11-24 08:47 | PCM.DCSUM1 ---
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 She reportedly had experienced a rather severe nosebleed last Monday and a Rhino Rocket was placed. This was then removed at the half-way on Monday and she began having bleeding again yesterday late evening. A tampon was placed and they called the ambulance. They report she been gurgling blood since the onset of the nosebleed in the tampon had fallen out prior to arrival in the ED. She was noted to have gurgling sound blood in the back of her throat and complaining of difficulty breathing. They suctioned her and place another 7.5 cm Rhino Rocket. Code with cocaineand his legs until bleeding stops. There was able to remove blood clots back or throat she was able to breathe easier. His noted at oxygen saturation 70s on arrival and with a nonrebreather she went back up into the 90s. In the ED temperature is 97.4. Pulse 79. Respirations 20. Blood pressure 1 3466. Pulse ox 71%. Labs are obtained: WBC is normal at 9.71. Hemoglobin 10.8. Hematocrit 33.1. She is macrocytic. Pulse are good at 222,000. Neutrophils are normal at 54.6%. Sodium 143. Potassium 3.5. Chloride 106. Her minoxidil 27. Anion gap 13.5. BUN is high at 66. Creatinine 1.8. GFR is 27. Glucose 177. Calcium 9.0. AST is 14, ALT 15, alkaline phosphatase 72. Protein 7.1. Nonrebreather was discontinued and she was noted to be in the low 90s for pulse ox. she is given Rocephin for concern over aspiration as noted. She carries a history of: glaucoma, impaired vision, dry eye syndrome, blind right eye, HLD, HTN, edema, chronic constipation, GERD, dysphagia, renal disease , hx/o hyperglycemic hyperosmolar coma, gout, Alzheimer's disease, dementia, schizophrenia, delirium, type II DM, hypothyroidism, obesity. She was never a smoker. She resides in the [facility]. She is a DNR. Her PCP is Dr. Andrews. Diagnosis: Stroke: No - Discharge Data Discharge Date: 11/24/18 (Admit date: 11/24/18) Discharge Disposition: DC/Tfer to SNF 03 Condition: Stable - Discharge Diagnosis/Problem(s) (1) Acute posterior epistaxis SNOMED Code(s): 204639919, 562469248 ICD Code: R04.0 - EPISTAXIS Status: Acute Priority: High Current Visit : Yes (2) Aspiration of blood SNOMED Code(s): 87558392 ICD Code: R09.89 - OTH SYMPTOMS AND SIGNS INVOLVING THE CIRC AND RESP SYSTEMS Status: Acute Priority: High Current Visit: Yes (3) DNR (do not resuscitate) Status: Chronic Priority: Medium Current Visit: Yes (4) Dementia SNOMED Code(s): 71631719 ICD Code: F03.90 - UNSPECIFIED DEMENTIA WITHOUT BEHAVIORAL DISTURBANCE Status: Chronic Priority: High Current Visit: Yes Qualifiers: Dementia type: unspecified type Dementia behavioral disturbance: without behavioral disturbance Qualified Code(s): F03.90 - Unspecified dementia without behavioral disturbance - Patient Summary/Data Consults: Consultations 11/24/18 08:42 Consult to Case Management/Cyber Systems Operations Specialist [CONS] Routine Consult to Spiritual Care [CONS] Routine Respiratory Care Assess and Treatment [CONS] Routine Labs Pending at D/C: None Recommended Follow-up Testing/Procedures: Follow-up with PCP within 5 days of discharge May benefit from ENT outpatient visit should frequent epistaxis symptoms continue. Hospital Course: I/P: Acute: Epistaxis -Significant bleeding from right nostril noted in the ED. -Was seen past Monday in ED for similar symptoms. Rhino Rocket placed and removed Monday -Rhino Rocket replaced by ED provider -No obvious bleeding -Discussed with Dr. Andrews. Recommends Rhino Rocket remain in place for 5 days total -Hgb has remained stable Possible Aspiration PNA -Noted to have dyspnea, oxygen saturations in the 70s, and significant blood in her throat. -CXR in ED shows possible aspiration in right lung. -Repeat CXR obtained today - Atelectasis and/or PNA in mid to lower lungs, Recommends repeat CXR in 4-6 weeks. -No leukocytosis today. -No fever, Oxygen saturations in upper 90s on room air. -Rocephin given in ED -Will switch to 7 days 500mg BID Keflex with first dose 11/25/18 -Significant dementia makes obtaining symptoms from patient difficult. Chronic: glaucoma impaired vision dry eye syndrome blind right eye HLD HTN edema chronic constipation GERD dysphagia renal disease Hx/o hyperglycemic hyperosmolar coma gout Alzheimer's disease dementia schizophrenia delirium type II DM hypothyroidism obesity Plan: Admit to medical floor - observation status Other orders as indicated above Home medications as ordered Routine AM labs Code status: DNR; PCP: Dr. Milind Schulz Ragini did well. she never spiked a fever and her white count remained normal. She is able to be successfully weaned off oxygen with saturations in the upper 90s. Due to concerns over aspiration she was started on Rocephin 1gm in the ED. Discussed ABX choice with Dr. Andrews and he would like one more 2gm dose of IV Rocephin before discharge. This will be switched to 500 mg twice a day Keflex for 7 days on discharge. Due to her continued bleeding her aspirin should be held until resumed by her primary care provider. We have also stopped the Aleve. Case was discussed with Dr. Andrews who feels she is OK for discharge. He recommends Rhino Rocket remain in place for 5 days total and then be removed. She should return to the ED should symptoms worsen. She will be discharged today. She should follow-up with her PCP within 5 days of discharge, sooner if needed. - Patient Instructions Diet: Usual Diet as Tolerated Activity: As Tolerated Driving: Do Not Drive Notify Provider of: Fever, Increased Pain, Nausea and/or Vomiting - Discharge Plan *PRESCRIPTION DRUG MONITORING PROGRAM REVIEWED*: No *COPY OF PRESCRIPTION DRUG MONITORING REPORT IN PATIENT HAN: No Prescriptions/Med Rec: Cephalexin [Keflex] 500 mg PO BID 7 Days #14 capsule Home Medications: Home Meds Acetaminophen [Tylenol] 650 mg PO Q6H PRN 06/25/17 [History] Levothyroxine 150 mcg PO DAILY 06/25/17 [History] Memantine HCl [Namenda Xr] 7 mg PO DAILY 06/25/17 [History] OLANZapine [ZyPREXA Zydis] 20 mg PO BEDTIME 06/25/17 [History] Latanoprost [Xalatan 0.005% Ophth Soln] 1 drop EYEBOTH BEDTIME 06/26/17 [History ] Polyethylene Glycol 3350 [MiraLAX] 17 gm PO Q2D packet 06/26/17 [Rx] Calcium Carbonate [Tums] 200 mg PO ASDIRECTED PRN 03/31/18 [History] Citalopram Hydrobromide [Celexa] 10 mg PO BEDTIME 03/31/18 [History] Dorzolamide/Timolol [Cosopt 2%-0.5% Ophth Soln] 1 drop EYEBOTH BID 03/31/18 [ History] Melatonin 3 mg PO BEDTIME 03/31/18 [History] OLANZapine [Olanzapine] 2.5 mg PO DAILY 03/31/18 [History] Cholecalciferol (Vitamin D3) [Vitamin D3] 1,000 unit PO DAILY #30 tablet [Rx] Furosemide [Lasix] 40 mg PO DAILY #0 04/03/18 [Rx] Magnesium Hydroxide [Milk of Magnesia] 5 ml PO DAILY PRN 11/20/18 [History] Trolamine Salicylate/Aloe Vera [Aspercreme 10%] 1 applic TOP BID PRN 11/20/18 [ History] guaiFENesin [Mucinex] 600 mg PO BID PRN 11/20/18 [History] Cephalexin [Keflex] 500 mg PO BID 7 Days #14 capsule 11/24/18 [Rx] Oxygen Therapy Mode: Room Air - Discharge Summary/Plan Comment DC Time >30 min.: No - General Info Date of Service: 11/24/18 Admission Dx/Problem (Free Text: Admission Diagnosis/Problem Admission Diagnosis/Problem Epistaxis Subjective Update: In to see Ragini with Dr. Andrews. She is doing quite well. No obvious signs of bleeding. No obvious signs of infection as she has not had a fever and her white count is normal. CXR obtained this morning with repeat pending. she's been successfully weaned off of oxygen and his having saturations in the upper 90s. Nursing did speak with patient's daughter who is very hopeful she can be discharged today as historically Ragini has had very difficult hospital stays with her mental status. No other nursing concerns. Functional Status: Reports: Pain Controlled, Tolerating Diet, Urinating. Denies : New Symptoms - Review of Systems Systems Review Comment: ROS unable to be reliably obtained due to patient's mental status. - Patient Data Vitals - Most Recent: Last Vital Signs Temp 97.3 F 11/24/18 07:57 Pulse 70 11/24/18 07:34 Resp 16 11/24/18 07:34 BP 145/85 H 11/24/18 07:41 Pulse Ox 98 11/24/18 07:34 Weight - Most Recent: 189 lb 8 oz Lab Results - Last 24 hrs: Laboratory Results - last 24 hr 11/24/18 11/24/18 11/24/18 Range/Units 01:46 01:46 05:20 WBC 9.71 9.22 (3.98-10.04) K/mm3 RBC 3.46 L 3.35 L (3.98-5.22) M/mm3 Hgb 10.8 L D 10.4 L (11.2-15.7) gm/L Hct 33.1 L 31.9 L (34.1-44.9) % MCV 95.7 H D 95.2 H (79.4-94.8) fl MCH 31.2 31.0 (25.6-32.2) pg MCHC 32.6 32.6 (32.2-35.5) g/dl RDW Std Deviation 45.1 45.2 (36.4-46.3) fL Plt Count 222 200 (182-369) K/mm3 MPV 11.3 11.2 (9.4-12.3) fl Neut % (Auto) 54.6 69.2 (34.0-71.1) % Lymph % (Auto) 35.2 23.9 (19.3-51.7) % [place] % (Auto) 7.2 5.7 (4.7-12.5) % Eos % (Auto) 2.6 1.0 (0.7-5.8) Baso % (Auto) 0.2 0.1 (0.1-1.2) % Neut # (Auto) 5.30 6.38 H (1.56-6.13) K/mm3 Lymph # (Auto) 3.42 2.20 (1.18-3.74) K/mm3 [place] # (Auto) 0.70 H 0.53 H (0.24-0.36) K/mm3 Eos # (Auto) 0.25 0.09 (0.04-0.36) K/mm3 Baso # (Auto) 0.02 0.01 (0.01-0.08) K/mm3 Sodium 143 (136-145) mEq/L Potassium 3.5 (3.5-5.1) mEq/L Chloride 106 (98-107) mEq/L Carbon Dioxide 27 (21-32) mEq/L Anion Gap 13.5 (5-15) BUN 66 H D (7-18) mg/dL Creatinine 1.8 H (0.55-1.02) mg/dL Est Cr Clr Drug Dosing TNP Estimated GFR (MDRD) 27 (>60) mL/min BUN/Creatinine Ratio 36.7 H (14-18) Glucose 177 H (83-115) mg/dL Calcium 9.0 (8.5-10.1) mg/dL Total Bilirubin 0.4 (0.2-1.0) mg/dL AST 14 L (15-37) U/L ALT 15 (14-59) U/L Alkaline Phosphatase 72 (46-116) U/L Total Protein 7.1 (6.4-8.2) g/dl Albumin 3.4 (3.4-5.0) g/dl Globulin 3.7 gm/dL Albumin/Globulin Ratio 0.9 L (1-2) 11/24/18 Range/Units 05:20 WBC (3.98-10.04) K/mm3 RBC (3.98-5.22) M/mm3 Hgb (11.2-15.7) gm/L Hct (34.1-44.9) % MCV (79.4-94.8) fl MCH (25.6-32.2) pg MCHC (32.2-35.5) g/dl RDW Std Deviation (36.4-46.3) fL Plt Count (182-369) K/mm3 MPV (9.4-12.3) fl Neut % (Auto) (34.0-71.1) % Lymph % (Auto) (19.3-51.7) % [place] % (Auto) (4.7-12.5) % Eos % (Auto) (0.7-5.8) Baso % (Auto) (0.1-1.2) % Neut # (Auto) (1.56-6.13) K/mm3 Lymph # (Auto) (1.18-3.74) K/mm3 [place] # (Auto) (0.24-0.36) K/mm3 Eos # (Auto) (0.04-0.36) K/mm3 Baso # (Auto) (0.01-0.08) K/mm3 Sodium 144 (136-145) mEq/L Potassium 3.7 (3.5-5.1) mEq/L Chloride 106 (98-107) mEq/L Carbon Dioxide 26 (21-32) mEq/L Anion Gap 15.7 H (5-15) BUN 67 H (7-18) mg/dL Creatinine 1.6 H (0.55-1.02) mg/dL Est Cr Clr Drug Dosing 23.81 Estimated GFR (MDRD) 31 (>60) mL/min BUN/Creatinine Ratio 41.9 H (14-18) Glucose 147 H (83-115) mg/dL Calcium 9.0 (8.5-10.1) mg/dL Total Bilirubin (0.2-1.0) mg/dL AST (15-37) U/L ALT (14-59) U/L Alkaline Phosphatase (46-116) U/L Total Protein (6.4-8.2) g/dl Albumin (3.4-5.0) g/dl Globulin gm/dL Albumin/Globulin Ratio (1-2) Med Orders - Current: Current Medications Acetaminophen (Tylenol) 650 mg PO Q4H PRN PRN Reason: Pain (Mild 1-3)/fever Albuterol/Ipratropium (Duoneb 3.0-0.5 Mg/3 Ml) 3 ml NEB Q4H PRN PRN Reason: Shortness Of Breath/wheezing Citalopram Hydrobromide (Celexa) 10 mg PO BEDTIME VICKIE Dorzolamide/Timolol (Cosopt 2%-0.5% Ophth Soln) ml EYEBOTH BID VICKIE Guaifenesin (Mucinex) 600 mg PO BID PRN PRN Reason: Congestion Sodium Chloride (Normal Saline) 1,000 mls @ 50 mls/hr IV ASDIRECTED VICKIE Latanoprost (Xalatan 0.005% Ophth Soln) ml EYEBOTH BEDTIME VICKIE Levothyroxine Sodium (Levothyroxine) 150 mcg PO DAILY VICKIE Magnesium Hydroxide (Milk Of Magnesia) 5 ml PO DAILY PRN PRN Reason: Constipation Melatonin (Melatonin) 3 mg PO BEDTIME VICKIE Non-Formulary Medication (Memantine Hcl [Namenda Xr]) 7 mg PO DAILY VICKIE Non-Formulary Medication (Olanzapine [Zyprexa Zydis]) 20 mg PO BEDTIME VICKIE Non-Formulary Medication (Trolamine Salicylate/Aloe Vera) 1 applic TOP BID PRN PRN Reason: Pain Olanzapine (Zyprexa) 2.5 mg PO DAILY VICKIE Polyethylene Glycol (Miralax) 17 gm PO Q2D VICKIE Discontinued Medications Cocaine HCl (Cocaine Hcl) 4 ml TOP ONETIME ONE Stop: 11/24/18 03:18 Last Admin: 11/24/18 03:29 Dose: 4 ml Sodium Chloride (Normal Saline) 1,000 mls @ 100 mls/hr IV ASDIRECTED VICKIE Last Admin: 11/24/18 03:13 Dose: 100 mls/hr Ceftriaxone Sodium 1 gm/ (Sodium Chloride) 100 mls @ 200 mls/hr IV ONETIME ONE Stop: 11/24/18 03:33 Last Admin: 11/24/18 03:15 Dose: 200 mls/hr Sodium Chloride (Normal Saline) 1,000 mls @ 100 mls/hr IV ASDIRECTED VICKIE - Exam Quality Assessment: Reports: DVT Prophylaxis General: Reports: Alert, Cooperative (Somewhat ), No Acute Distress. Denies: Oriented HEENT: Reports: Pupils Equal, Pupils Reactive, Mucous Membr. Moist/[place] Neck: Reports: Supple Lungs: Reports: Normal Respiratory Effort, Decreased Breath Sounds, Crackles ( Mild right ). Denies: Rhonchi, Wheezing Cardiovascular: Reports: Regular Rate, Regular Rhythm GI/Abdominal Exam: Normal Bowel Sounds, Soft, Non-Tender, No Distention, No Abnormal Bruit, Pelvis Stable (Female) Exam: Deferred Rectal (Female) Exam: Deferred Back Exam: Reports: Normal Inspection, Full Range of Motion Extremities: Normal Inspection Skin: Reports: Warm, Dry, Intact Neurological: Reports: No New Focal Deficit Psy/Mental Status: Reports: Alert
[2018-11-24] MEDS ORDERED: OLANZapine 5 MG Tab PO SCH ×2 (09:00→21:00)
[2018-11-24] MEDS ORDERED: Levothyroxine 150 MCG Tab PO SCH (09:00)
[2018-11-24] MEDS ORDERED: MEMANTINE HCL 7 MG PO SCH (09:00)
[2018-11-24] MEDS ORDERED: Dorzolamide/Timolol 2%-0.5% Ophth Soln 10 ML Bottle EYEBOTH SCH (09:00)
[2018-11-24] MEDS ORDERED: Cephalexin 500 MG Cap PO SCH (10:15)
[2018-11-24] MEDS ORDERED: cefTRIAXone 2 GM Vial IV ONE (11:13)
[2018-11-24] MEDS ORDERED: cefTRIAXone 2 GM in Sodium Chloride 0.9% 100 ML IV ONE (11:30)
[2018-11-24] MEDS ORDERED: Latanoprost 0.005% Ophth Soln 2.5 ML Bottle EYEBOTH SCH (21:00)
[2018-11-24] MEDS ORDERED: Citalopram 10 MG Tab PO SCH (21:00)
[2018-11-24] MEDS ORDERED: Melatonin 3 MG Tab PO SCH (21:00)
[2018-11-25] MEDS ORDERED: Polyethylene Glycol 3350 Powder 17 GM Packet PO SCH (08:00)
--- NOTE | 2018-11-26 09:36 | CR ---
Chest: Frontal view of the chest was obtained utilizing portable technique. Comparison: Prior chest CT of 03/31/18 and chest x-ray of 06/25/17. Lung markings are increased most of which appear chronic but difficult to exclude mild superimposed bronchitis. Lungs otherwise are clear with no alveolar type densities. Heart size is normal. Tortuous thoracic aorta is seen. Bony structures are grossly intact. Impression: 1. Increased central lung markings most of which appear to be chronic. Difficult to exclude mild superimposed bronchitis. 2. Other incidental findings. Diagnostic code #3
--- NOTE | 2018-11-26 11:07 | CR ---
Chest: Two views of the chest are obtained. Comparison: Prior chest x-ray performed earlier on same date (2:26 AM) Findings: Increased central lung markings are seen. Findings are slightly less prominent than seen on prior exam most likely relating to differences in technique. Difficult to exclude mild bronchitis superimposed upon chronic change. Lungs otherwise are clear and no acute alveolar parenchymal change. Heart size is within normal limits. Tortuous thoracic aorta is seen. Mild degenerative change is noted within the spine. Small hiatal hernia is noted. Impression: 1. Stable findings as noted above. Diagnostic code #3 I agree with preliminary report from ad, finalized on 11/24/18, 11:55 AM Central Time
== END 2018-11-24 12:21 ==
LOC: JD.ED 01:20 → JD.MS 03:44
PROVIDERS: ADMIT Pediatrics; ATTEND Pediatrics
DX: R04.0 Epistaxis (principal); T17.998A Other foreign object in respiratory tract, part unspecified causing other injury, initial encounter; R09.89 Other specified symptoms and signs involving the circulatory and respiratory systems; G30.9 Alzheimer's disease, unspecified; F02.80 Dementia in other diseases classified elsewhere, unspecified severity, without behavioral disturbance, psychotic disturbance, mood disturbance, and anxiety; I10 Essential (primary) hypertension; E11.9 Type 2 diabetes mellitus without complications; E78.5 Hyperlipidemia, unspecified; E03.9 Hypothyroidism, unspecified; N28.9 Disorder of kidney and ureter, unspecified; K59.09 Other constipation; K21.9 Gastro-esophageal reflux disease without esophagitis; M10.9 Gout, unspecified; F20.9 Schizophrenia, unspecified; F32.9 Major depressive disorder, single episode, unspecified; R60.9 Edema, unspecified; E66.9 Obesity, unspecified; H40.9 Unspecified glaucoma; H04.129 Dry eye syndrome of unspecified lacrimal gland; H54.61 Unqualified visual loss, right eye, normal vision left eye; Z66 Do not resuscitate; Z68.32 Body mass index [BMI] 32.0-32.9, adult; Z79.899 Other long term (current) drug therapy; Z88.8 Allergy status to other drugs, medicaments and biological substances; Z88.5 Allergy status to narcotic agent; Z88.0 Allergy status to penicillin
CPT/HCPCS: 30903; 36415; 71045; 71046; 80048; 80053; 85025; 87641; 96365; 99285; A9270; J0696; J7030; J7040; 96361; 96366; G0378